=== PATIENT | female | born 1940 | race Caucasian/White ===

== ENCOUNTER 2023-05-02 06:57 | Day surgery (SDC) | payer MEDICARE, MEDICAID, SELFPAY ==
[2023-05-02] VITALS (12 sets, daily range): BP systolic 90–123; BP diastolic 62–83; PULSE 69–84; RESP 12–16; TEMP 36.2–36.8; O2SAT 91–99; BMI 21.7
[2023-05-02] MEDS: LACTATED RINGERS 1000 ML 1,000 ML 100 ML IV (07:05)
[2023-05-02] MEDS: SODIUM CHLORIDE 0.9 % (FLUSH) 10 ML SYRINGE IVF (08:39)
--- NOTE | 2023-05-02 08:39 | W.ANESCHARGE ---
Anesthesia Charges Start Date/Time Anesthesia Start Date: 05/02/23 Anesthesia Start Time: 08:41 Stop Date/Time Anesthesia Stop Date: 05/02/23 Anesthesia Stop Time: 09:20 Summary Extremes of Age - Over 70 or under 1: MDA
[2023-05-02] MEDS: BUPIVACAINE 0.25% 30 ML INJECTION (09:10)
--- NOTE | 2023-05-02 09:15 | PM.GSPRC ---
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 It was recommended that undergo wide local excision. Due to the patients co-morbidities it was recommended that she undergo excision in the operating room. Risks and benefits of operative intervention were discussed at length with the patient. Risks included but was not limited to: Bleeding, infection, risk of damage to surrounding structures, possible need for additional procedures. Patient was consented over the phone via her guardian with all questions and concerns addressed. Procedure Description: After discussing the risks and benefits of the procedure, the patient signed informed consent.? The operative site was marked and the patient was brought to the operating room and placed on the operating table in supine position.? Care was taken to pad the patient's pressure points.?? The patient was then intubated by anesthesia.?? The operative site was then prepped and draped in the usual sterile fashion.? A time-out was then performed. A vertical elliptical incision was made around the lesion with a scalpel to allow excision of 1 cm lesion with 0.5 cm margins (total width 2 cm). Subcutaneous tissues were dissected with a scalpel and the ellipse of skin was excised with a scalpel. It was marked with a marking short stitch superiorly and long stitch laterally. The lesion was then sent to pathology. Surgical field was examined for bleeding and any oozing was controlled with cautery. The incision was 3 cm and was closed in layers with 3-0 vicryl interrupted stitches for subdermal layer and with 4-0 monocryl subcuticular running stitch for skin. Dermabond was applied over the incision. ? The patient was then woken and transported to the recovery area in stable condition. ? The patient tolerated the procedure well. Findings: Squamous cell carcinoma of the right upper extremity Anesthesia: GETA Surgeon: Randa Ovalles MD Estimated blood loss (mL): 2 Additional Specimen Information: Right upper arm skin lesion Condition: stable Disposition: PACU Date of procedure: 05/02/23
--- NOTE | 2023-05-02 09:21 | W.ANESCHARGE ---
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
--- NOTE | 2023-05-02 09:23 | SUR.PHASEI ---
per track welder, ok to bring patient back to [facility] to be reunited with caregiver once patient starts waking up and v/s stable
--- NOTE | 2023-05-02 09:42 | SUR.PHASEI ---
per otolaryngology nurse, ok to d/c bp monitoring after several readings
== END 2023-05-02 10:41 | disposition home or self-care (01) ==
PROVIDERS: PCP Family Medicine; Visit Provider Surgery
PROC: (CPT 11602; principal; 2023-05-02 08:30)
DX: C44.622 Squamous cell carcinoma of skin of right upper limb, including shoulder (principal)
CPT/HCPCS: 11602; 12032; 00400; 88305; 99100; J0665; J2250; J2371; J2704; J3010; J7120

== ENCOUNTER 2023-05-03 13:09 | Emergency (ER) | payer MEDICARE, MEDICAID, SELFPAY ==
[2023-05-03 14:02] VITALS: RESP 20; TEMP 36.2
--- NOTE | 2023-05-14 11:30 | ED.GENADULT ---
HPI - General Adult General Chief complaint: Post Op Complication Stated complaint: R arm wound re-opening Time Seen by Provider: 05/03/23 15:30 History of Present Illness HPI narrative: Patient had procedure on right arm yesterday under anesthesia. Today [facility] staff reports that top of incision which was glued came open . Patient is unable to have BP or pulse oximeter on due to developmental challenges. Patient did hold my neck forcefully in triage when attempts were made so further attempts will be deferred. 82-year-old woman presenting with staff from care facility where she lives with concern of compromise to surgical site from yesterday. Reviewing records looks like this was a resection of squamous cell carcinoma. Subdermal and running intercuticular sutures were placed ultimately covered with glue. No complications noted. Required general sedation for this procedure. 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 Per staff accompanies, apparently [place] spends a lot of time moving during rest and sleep and prefers to lie on this right-side rubbing get into the bed. Was noted that the glue had come off and there was some blood. Needing evaluation for integrity of the surgical wound. Related Data Home Medications Medication Instructions Recorded Confirmed buspirone 15 mg tablet 15 mg PO BID 04/30/23 05/02/23 escitalopram oxalate 20 mg tablet 20 mg PO DAILY 04/30/23 05/02/23 (Lexapro) levothyroxine 25 mcg capsule 25 mcg PO DAILY 04/30/23 05/02/23 lorazepam 1 mg tablet (Ativan) 1 mg PO DAILY PRN 04/30/23 05/02/23 melatonin 3 mg capsule 3 mg PO DAILY 04/30/23 05/02/23 potassium chloride 10 mEq 10 meq PO BID 04/30/23 05/02/23 tablet,extended release (K-Tab) quetiapine 150 mg tablet 150 mg PO DAILY 04/30/23 05/02/23 quetiapine 300 mg tablet (Seroquel) 300 mg PO QHS 04/30/23 05/02/23 Allergies Allergy/AdvReac Type Severity Reaction Status Date / Time No Known Drug Allergies Allergy Verified 04/30/23 12:22 Review of Systems Status of ROS: Reports: unobtainable due to mental status PFSH PFSH Medical History Constipation ?K59.00 - Constipation, unspecified (ICD-10) Urinary incontinence ?R32 - Unspecified urinary incontinence (ICD-10) Unspecified hypothyroidism ?E03.9 - Hypothyroidism, unspecified (ICD-10) Unspecified intellectual disabilities ?F79 - Unspecified intellectual disabilities (ICD-10) DNR (do not resuscitate) ?Z66 - Do not resuscitate (ICD-10) 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 Reaches for examiner. Once holds hand will claw at palm. Is breathing easily. Bandage has been placed and wrapped over the right upper arm. With staff assistance and mild and mobile restraint am able to remove the dressing that has been placed. There is some dried blood in the area but wound appears to be quite well approximated without defect. Place antibiotic ointment, Telfa pad and Coban wrap. Katie appeared to tolerate this quite well. Const: Documenting provider has reviewed patient's vital signs: yes (Not able to obtain blood pressures or oxygen saturation) Course Vital Signs Vital signs: Initial Vital Signs Temperature 97.2 F L 05/03/23 14:02 Temperature Source Temporal Artery Scan 05/03/23 14:02 Respiratory Rate 20 05/03/23 14:02 Vital Signs Temperature 97.2 F L 05/03/23 14:02 Respiratory Rate 20 05/03/23 14:02 Temperature 97.2 F L 05/03/23 14:02 Respiratory Rate 20 05/03/23 14:02 Medical Decision Making MDM Narrative Medical decision making narrative: Did discuss briefly with performing surgeon. Did not anticipate any intervention and no call back was necessary. Medical Records Medical records reviewed: Yes I reviewed the patient's medical records Discharge Plan Discharge Clinical Impression: Encounter for post surgical wound check Patient Disposition: Home w/ Parent or Adult Condition: Stable Additional Instructions: Using Telfa pad as dressing, change dressing daily with antibiotic ointment as done here today for 4 days. Then I would go to dry dressing probably also with Telfa pad and the Coban as further covering/protection. Complete a total of 10 days of dressing changes. Avoid soaking during this time. Prescriptions: No Action buspirone 15 mg tablet 15 mg PO BID escitalopram oxalate [Lexapro] 20 mg tablet 20 mg PO DAILY levothyroxine 25 mcg capsule 25 mcg PO DAILY lorazepam [Ativan] 1 mg tablet 1 mg PO DAILY PRN Patient Comments: take before test or procedure melatonin 3 mg capsule 3 mg PO DAILY potassium chloride [K-Tab] 10 mEq tablet extended release 10 meq PO BID quetiapine 150 mg tablet 150 mg PO DAILY quetiapine [Seroquel] 300 mg tablet 300 mg PO QHS Follow Up/Referrals: Dat Smith MD [Primary Care Provider] - Stand Alone Forms: [facility] Info Instructions
== END 2023-05-03 16:46 | disposition home or self-care (01) ==
PROVIDERS: Emergency Provider Family Medicine; PCP Family Medicine
DX: Z48.01 Encounter for change or removal of surgical wound dressing (principal)
CPT/HCPCS: 99283

== ENCOUNTER 2023-05-29 16:26 | Emergency (ER) | payer MEDICARE, MEDICAID, SELFPAY ==
[2023-05-29 16:43] VITALS: PULSE 88; RESP 22; TEMP 36.9; BMI 19.8
--- NOTE | 2023-05-29 16:57 | CRLHL7_ITS ---
For Patients: As a result of the Century Cures Act, medical imaging exams and procedure reports are released immediately into your electronic medical record. You may view this report before your referring provider. If you have questions, please contact your health care provider. INDICATION: Constipation TECHNIQUE: Abdomen 1 view. COMPARISON: None FINDINGS: There is a moderate to large amount of retained stool throughout the colon. No dilated loops of small bowel are seen to suggest obstruction. Evaluation for free air is limited on the supine image. Partially visualized postsurgical changes of the left femur. IMPRESSION: Nonobstructed bowel-gas pattern. Dictated by María Farris MD @ 05/29/2023 6:26:32 PM Dictated by: María Farris MD @ 05/29/2023 18:26:36 (Electronically Signed)
--- NOTE | 2023-05-29 17:17 | ED.GENADULT ---
HPI - General Adult General Date Seen: 05/29/23 Chief complaint: Constipation Stated complaint: No bowel movement in 5 days Time Seen by Provider: 05/29/23 16:52 Source: other (jail caregiver) Mode of arrival: ambulatory Limitations: other (Developmental delay) History of Present Illness HPI narrative: Patient is a 82-year-old female with history of developmental delay presents to the department for constipation. She is here with 1 of the half-way caregivers was giving the history. Patient is nonverbal. They state they have nose patient has not had documented bowel movement now for 5 days. They states she usually has 1 least every other day. It and will today at 15:00 and no stool came out. She has been on MiraLax and senna. They have noticed the patient has been more agitated than normal but has not been vomiting has been eating and drinking normally. Patient is unable to give me any history due to her medical conditions. They have not noticed any other concerning abnormalities in the patient. The patient is combative and full set of vital signs 1 able to be obtained. jail staff states this is normal for her. Related Data Home Medications Medication Instructions Recorded Confirmed buspirone 15 mg tablet 15 mg PO BID 04/30/23 05/02/23 escitalopram oxalate 20 mg tablet 20 mg PO DAILY 04/30/23 05/02/23 (Lexapro) levothyroxine 25 mcg capsule 25 mcg PO DAILY 04/30/23 05/02/23 lorazepam 1 mg tablet (Ativan) 1 mg PO DAILY PRN 04/30/23 05/02/23 melatonin 3 mg capsule 3 mg PO DAILY 04/30/23 05/02/23 potassium chloride 10 mEq 10 meq PO BID 04/30/23 05/02/23 tablet,extended release (K-Tab) quetiapine 150 mg tablet 150 mg PO DAILY 04/30/23 05/02/23 quetiapine 300 mg tablet (Seroquel) 300 mg PO QHS 04/30/23 05/02/23 Allergies Allergy/AdvReac Type Severity Reaction Status Date / Time No Known Drug Allergies Allergy Verified 04/30/23 12:22 Review of Systems Status of ROS: Reports: unobtainable due to medical condition (Developmental delay) PFSH [facility] Medical History Constipation ?K59.00 - Constipation, unspecified (ICD-10) Urinary incontinence ?R32 - Unspecified urinary incontinence (ICD-10) Unspecified hypothyroidism ?E03.9 - Hypothyroidism, unspecified (ICD-10) Unspecified intellectual disabilities ?F79 - Unspecified intellectual disabilities (ICD-10) DNR (do not resuscitate) ?Z66 - Do not resuscitate (ICD-10) 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 Moist mucous membranes. Neck: Symmetric, trachea midline, No thyromegaly. CVS: RRR, No murmurs or gallops. Peripheral pulses 2+ and equal in all extremities RESP: Unlabored respiratory effort. Clear to auscultation bilaterally. GI: Nontender/Nondistended, No rebound or guarding. MSK:Extremities w/o deformity, Normal Active ROM Skin: Warm, Dry. No rashes or lesions. Neuro: Normal Muscle tone, No focal neurological deficits. Psych: Awake. Combative Const: Vital Signs, click to edit/add: Vital Signs - 24 hr 05/29/23 16:43 Temperature 98.5 F Pulse Rate [Radial ] 88 Respiratory Rate 22 Course Vital Signs Vital signs: Initial Vital Signs Temperature 98.5 F 05/29/23 16:43 Temperature Source Temporal Artery Scan 05/29/23 16:43 Pulse Rate 88 05/29/23 16:43 Respiratory Rate 22 05/29/23 16:43 Vital Signs Temperature 98.5 F 05/29/23 16:43 Pulse Rate 88 05/29/23 16:43 Respiratory Rate 22 05/29/23 16:43 Temperature 98.5 F 05/29/23 16:43 Pulse Rate 88 05/29/23 16:43 Respiratory Rate 22 05/29/23 16:43 Medical Decision Making MDM Narrative Medical decision making narrative: Patient is an 82-year-old female with developmental delay coming for constipation. Has not had documented bowel movement in 5 days. Usually goes every other day. She is mildly MRI last less than normal but is eating and drinking without issue and has had no vomiting. Patient is not having any other complaints and has not been having any fever. No clear signs of infection. Abdomen was not tender on palpation. At this time patient would not tolerate a CT due to her developmental issues and adenopathy is necessary since she is here for constipation only. We did do an abdominal x-ray and I reviewed myself and was reviewed by the radiologist showing a moderate to large amount of stool throughout the rectum but no impaction seen. Patient is already on MiraLax and senna b.i.d. She is otherwise doing well and will be discharged home. Informed and continue her stool softener regimen. Imaging Data Abdominal x-ray: Radiologist's impression: INDICATION: Constipation TECHNIQUE: Abdomen 1 view. COMPARISON: None FINDINGS: There is a moderate to large amount of retained stool throughout the colon. No dilated loops of small bowel are seen to suggest obstruction. Evaluation for free air is limited on the supine image. Partially visualized postsurgical changes of the left femur. IMPRESSION: Nonobstructed bowel-gas pattern. Dictated by María Farris MD @ 05/29/2023 6:26:32 PM Discharge Plan Discharge Clinical Impression: Constipation Qualifiers: Constipation type: unspecified constipation type Qualified Code(s): K59.00 - Constipation, unspecified Patient Disposition: Home, Self-Care Condition: Stable Instructions: Constipation (DC) Additional Instructions: Follow-up with her primary care provider. Return for new worsening symptoms. Continue her bowel regimen. Prescriptions: No Action buspirone 15 mg tablet 15 mg PO BID escitalopram oxalate [Lexapro] 20 mg tablet 20 mg PO DAILY levothyroxine 25 mcg capsule 25 mcg PO DAILY lorazepam [Ativan] 1 mg tablet 1 mg PO DAILY PRN Patient Comments: take before test or procedure melatonin 3 mg capsule 3 mg PO DAILY potassium chloride [K-Tab] 10 mEq tablet extended release 10 meq PO BID quetiapine 150 mg tablet 150 mg PO DAILY quetiapine [Seroquel] 300 mg tablet 300 mg PO QHS Follow Up/Referrals: Dat Smith MD [Primary Care Provider] - Stand Alone Forms: [facility] Info Instructions
--- NOTE | 2023-05-29 19:41 | ED.NURSE ---
Vital signs not completed due to sensory sensitivities.
== END 2023-05-29 19:35 | disposition home or self-care (01) ==
PROVIDERS: Emergency Provider Student in an Organized Health Care Education/Training Program; PCP Family Medicine
DX: K59.00 Constipation, unspecified (principal)
CPT/HCPCS: 74018; 99282; 99283

== ENCOUNTER 2023-06-12 18:10 | Emergency (ER) | payer MEDICARE, MEDICAID, SELFPAY ==
[2023-06-12 18:18] VITALS: BP 113/63; PULSE 86; RESP 18; TEMP 36; O2SAT 96
--- NOTE | 2023-06-12 18:26 | ED.GENADULT ---
HPI - General Adult General Time Seen by Provider: 18:26 Date Seen: 06/12/23 Chief complaint: Constipation Stated complaint: Bowel movements irregular Time Seen by Provider: 06/12/23 18:14 Source: patient and RN notes reviewed Mode of arrival: ambulatory Limitations: no limitations History of Present Illness HPI narrative: Katie is an 82-year-old female here with a care provider. She has significant issues with constipation. Had been on MiraLax and senna for years. [facility] which is not on her current medication sheet. She had 2 bowel movements on June 10. Today would be her 2nd day of no bowel movement in she would get prune juice, followed by a senna and then MiraLax reportedly. When the Linzess was started, the MiraLax and senna daily were stopped. She has eaten fine today per her care provider, no vomiting. No changes in amount eaten. They attempted to assess her bowel sounds and could not hear any. Patient has profound mental retardation and does attempt to scratch and clot at people. She has a history of anxiety and intermittent explosive disorder as well as osteoporosis, scoliosis, fibrocystic breasts, PKU, hypothyroidism, hypercholesterolemia. She was brought in primarily for the concerns of no bowel sounds. Related Data Home Medications Medication Instructions Recorded Confirmed buspirone 15 mg tablet 15 mg PO BID 04/30/23 05/02/23 escitalopram oxalate 20 mg tablet 20 mg PO DAILY 04/30/23 05/02/23 (Lexapro) levothyroxine 25 mcg capsule 25 mcg PO DAILY 04/30/23 05/02/23 lorazepam 1 mg tablet (Ativan) 1 mg PO DAILY PRN 04/30/23 05/02/23 melatonin 3 mg capsule 3 mg PO DAILY 04/30/23 05/02/23 potassium chloride 10 mEq 10 meq PO BID 04/30/23 05/02/23 tablet,extended release (K-Tab) quetiapine 150 mg tablet 150 mg PO DAILY 04/30/23 05/02/23 quetiapine 300 mg tablet (Seroquel) 300 mg PO QHS 04/30/23 05/02/23 Allergies Allergy/AdvReac Type Severity Reaction Status Date / Time No Known Drug Allergies Allergy Verified 04/30/23 12:22 Review of Systems Status of ROS: Reports: unobtainable due to medical condition PFSH PFSH Medical History Constipation ?K59.00 - Constipation, unspecified (ICD-10) Urinary incontinence ?R32 - Unspecified urinary incontinence (ICD-10) Unspecified hypothyroidism ?E03.9 - Hypothyroidism, unspecified (ICD-10) Unspecified intellectual disabilities ?F79 - Unspecified intellectual disabilities (ICD-10) DNR (do not resuscitate) ?Z66 - Do not resuscitate (ICD-10) 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 She reaches attempts to scratch in grab at me immediately. She had to be restrained by the care provider as I attempted to listen to her. She is vocalizing sounds. She is rather strong. Belly is soft, I feel no masses. When I listen, I do hear underlying bowel sounds but understand why they may have had difficulty. She moves when you attempt to examine her and does tense her belly up. Listening long enough I do hear the peristalsis that sounds normal. I can hear in both upper quadrants. She sitting in the chair and thus really is not laid out flat. Discussed with her care provider whether not she felt it is plain films could be done. She stated that the patient would not cooperate or hold still for this. Thus, had discussion about a patient here that is not had a bowel movement in 2 days that I do hear bowel sounds on, is still eating and drinking without any change in no evidence of vomiting. I would recommend proceeding with the usual bowel regimen. Watch for signs and symptoms of obstruction with diminished appetite, increasing belly distension, vomiting any changes in behavior that would have historically may be indicated pain. I feel proceeding further with such things like rectal examination, attempts at abdominal imaging are not going to be successful or fruitful with out use of sedation. There is nothing here clinically that necessitates this level of intervention, do believe that the risk of sedation outweighs potential benefits at this time. Rectal examination will prove to be most difficult without sedation as well. Documenting provider has reviewed patient's vital signs: yes Course Vital Signs Vital signs: Initial Vital Signs Temperature 96.8 F L 06/12/23 18:18 Temperature Source Temporal Artery Scan 06/12/23 18:18 Pulse Rate 86 06/12/23 18:18 Respiratory Rate 18 06/12/23 18:18 Blood Pressure 113/63 06/12/23 18:18 Blood Pressure Mean 79 06/12/23 18:18 Blood Pressure Position Sitting 06/12/23 18:18 Pulse Oximetry 96 06/12/23 18:18 Oxygen Delivery Method Room Air 06/12/23 18:18 Vital Signs Temperature 96.8 F L 06/12/23 18:18 Pulse Rate 86 06/12/23 18:18 Respiratory Rate 18 06/12/23 18:18 Blood Pressure 113/63 06/12/23 18:18 Pulse Oximetry 96 06/12/23 18:18 Oxygen Delivery Method Room Air 06/12/23 18:18 Temperature 96.8 F L 06/12/23 18:18 Pulse Rate 86 06/12/23 18:18 Respiratory Rate 18 06/12/23 18:18 Blood Pressure 113/63 06/12/23 18:18 Pulse Oximetry 96 06/12/23 18:18 Oxygen Delivery Method Room Air 06/12/23 18:18 Discharge Plan Discharge Clinical Impression: Chronic constipation Patient Disposition: Home w/ Parent or Adult Condition: Stable Instructions: Constipation (ED) Additional Instructions: Proceed with her outlined regimen for constipation. I certainly would consider using prune juice as well as senna at this point. Could add in MiraLax tomorrow. You can always try to contact her primary provider tomorrow for further recommendations. Should she have concerns such is not eating, develops vomiting, has increasing abdominal distension or seems like she might be having abdominal pain in setting of no stool output, do recommend further evaluation. Activity Level: Activity as Tolerated Prescriptions: No Action buspirone 15 mg tablet 15 mg PO BID escitalopram oxalate [Lexapro] 20 mg tablet 20 mg PO DAILY levothyroxine 25 mcg capsule 25 mcg PO DAILY lorazepam [Ativan] 1 mg tablet 1 mg PO DAILY PRN Patient Comments: take before test or procedure melatonin 3 mg capsule 3 mg PO DAILY potassium chloride [K-Tab] 10 mEq tablet extended release 10 meq PO BID quetiapine 150 mg tablet 150 mg PO DAILY quetiapine [Seroquel] 300 mg tablet 300 mg PO QHS Follow Up/Referrals: Dat Smith MD [Primary Care Provider] - Stand Alone Forms: [facility] Info Instructions
--- NOTE | 2023-06-12 19:26 | ED.NURSE ---
Patient discharge by doctor prior to being able to fully assess patient.
== END 2023-06-12 19:10 | disposition home or self-care (01) ==
LOC: ED 18:59
PROVIDERS: Emergency Provider Family Medicine; PCP Family Medicine
DX: K59.09 Other constipation (principal)
CPT/HCPCS: 99282; 99283

== ENCOUNTER 2024-05-07 12:08 | Emergency (ER) | payer MEDICARE, MEDICAID, SELFPAY ==
[2024-05-07 12:35] VITALS: RESP 18; TEMP 36.4
--- NOTE | 2024-05-07 12:43 | CRLHL7_ITS ---
For Patients: As a result of the Century Cures Act, medical imaging exams and procedure reports are released immediately into your electronic medical record. You may view this report before your referring provider. If you have questions, please contact your health care provider. Indication: Fall, will not stand Technique: Five views AP pelvis and two views each hip Comparison: None Findings/Impression: Bones: Deformity of the left superior pubic ramus and left femoral neck consistent with old fractures with 3 pin fixation of the left hip. Pins are seated within the femoral head. No definite evidence of acute fracture. Mild underlying osteopenia. Joint spaces: No dislocation. Soft tissues: Phleboliths within the pelvis. Dictated by Elvis Baltazar MD @ 05/07/2024 2:52:42 PM (Electronically Signed)
--- NOTE | 2024-05-07 12:58 | ED.GENADULT ---
HPI - General Adult General Date Seen: 05/07/24 Chief complaint: Extremity Pain/Injury, Lower Stated complaint: Fall, poss RT hip injury Time Seen by Provider: 05/07/24 12:43 Source: other (Care staff) Mode of arrival: wheelchair Limitations: other (Mental retardation) History of Present Illness HPI narrative: Patient is an 83-year-old female presenting to the emergency department for a fall. She lives in a shelter for her severe developmental delay and is non verbal. She was with staff when she stood up and fell. They are unsure if she fell to her left or right side but they found her on the floor and quickly tried to help her up. She is refusing to stand up so they were concerned she hurt her hip. They do not think she hit her head. No obvious injuries seen by staff. She has not been screaming out in pain when she would sit we do if she hurts. She is nonverbal for them cannot tell staff what happened. Related Data Home Medications ?Medication ?Instructions ?Recorded ?Confirmed buspirone 15 mg tablet 15 mg PO BID 04/30/23 05/02/23 escitalopram oxalate 20 mg tablet 20 mg PO DAILY 04/30/23 05/02/23 (Lexapro) levothyroxine 25 mcg capsule 25 mcg PO DAILY 04/30/23 05/02/23 lorazepam 1 mg tablet (Ativan) 1 mg PO DAILY PRN 04/30/23 05/02/23 melatonin 3 mg capsule 3 mg PO DAILY 04/30/23 05/02/23 potassium chloride 10 mEq 10 meq PO BID 04/30/23 05/02/23 tablet,extended release (K-Tab) quetiapine 150 mg tablet 150 mg PO DAILY 04/30/23 05/02/23 quetiapine 300 mg tablet (Seroquel) 300 mg PO QHS 04/30/23 05/02/23 Previous Rx's ?Medication ?Instructions ?Recorded oxycodone 5 mg tablet See Rx Instructions .Route 05/07/24 .COMPLEX PRN pain #12 tabs Allergies Allergy/AdvReac Type Severity Reaction Status Date / Time No Known Drug Allergies Allergy Verified 05/07/24 12:34 Review of Systems Status of ROS: Reports: unobtainable due to medical condition [facility] Medical History Constipation ?K59.00 - Constipation, unspecified (ICD-10) Urinary incontinence ?R32 - Unspecified urinary incontinence (ICD-10) Unspecified hypothyroidism ?E03.9 - Hypothyroidism, unspecified (ICD-10) Unspecified intellectual disabilities ?F79 - Unspecified intellectual disabilities (ICD-10) DNR (do not resuscitate) ?Z66 - Do not resuscitate (ICD-10) 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 She would not sit still Eyes: PERRL, no conjunctival injection, and symmetrical lids HENT: Atraumatic external nose and ears. Moist mucous membranes. Neck: Symmetric, trachea midline, No thyromegaly. CVS: RRR, No murmurs or gallops. Peripheral pulses 2+ and equal in all extremities RESP: Unlabored respiratory effort. Clear to auscultation bilaterally. GI: Nontender/Nondistended, No rebound or guarding. MSK:Extremities w/o deformity, Normal Active ROM Skin: Warm, Dry. No rashes or lesions. Neuro: Normal Muscle tone, No focal neurological deficits. Is moving all extremities without issue and moving neck without issue. Psych: Awake. Const: Vital Signs, click to edit/add: Vital Signs - 24 hr 05/07/24 12:35 Temperature 97.6 F Respiratory Rate 18 Course Vital Signs Vital signs: Initial Vital Signs Temperature 97.6 F 05/07/24 12:35 Temperature Source Temporal Artery Scan 05/07/24 12:35 Respiratory Rate 18 05/07/24 12:35 Vital Signs Temperature 97.6 F 05/07/24 12:35 Respiratory Rate 18 05/07/24 12:35 Temperature 97.6 F 05/07/24 12:35 Respiratory Rate 18 05/07/24 12:35 Medical Decision Making MDM Narrative Medical decision making narrative: Patient is an 83-year-old female initially seen in the triage area due to the busy department presenting for a fall. Is concerned for hip injury so a bilateral hip and pelvis was ordered. She has no tenderness nurse anywhere in her lower extremities for hip on palpation. Of note she is quite developmentally delayed and an adequate exam is hard to perform. While I cannot definitely states he had her head or not she is moving her neck without issues and they have not noticed any changes to her mentation. I do believe will be near impossible to get an adequate CT without sedation and likely intubation and believe that is unnecessary for this patient. X-ray was eventually done with the help of multiple staff to hold her down and shows no acute abnormalities. I went to go evaluate her when she was brought back to a room and now it noticed her left knee is swollen up quite a bit compared to earlier. Do this I will order an x-ray of that knee. This shows a patellar fracture with hemarthrosis. I spoke to the on-call Ortho provider Dr. Young who states she would be a poor candidate for surgical considering her age, the minimal displacement, and her likely poor adherence to surgery follow-up restrictions. Does think on knee immobilizer is best option for her at this time. Will place a knee immobilizer on the patient. She will be discharged to the care of her caregivers. An [place] wrap was placed around the knee immobilizer to help prevent the patient from taking it off. Will also discharge her with some oxycodone in case she develops pain later on. She does have a follow-up appointment scheduled with Orthopedics on Saturday. Imaging Data X-ray hips and pelvis: Attestation: I have reviewed the pertinent imaging results. Radiologist's impression: Bones: Deformity of the left superior pubic ramus and left femoral neck consistent with old fractures with 3 pin fixation of the left hip. Pins are seated within the femoral head. No definite evidence of acute fracture. Mild underlying osteopenia. Joint spaces: No dislocation. Soft tissues: Phleboliths within the pelvis. Dictated by Elvis Baltazar MD @ 05/07/2024 2:52:42 PM X-ray left knee: Attestation: I have reviewed the pertinent imaging results. Radiologist's impression: Patellar fracture and associated hemarthrosis as above. Dictated by Basim Shannon MD @ 05/07/2024 3:51:59 PM Discharge Plan Discharge Clinical Impression: Patellar fracture Qualifiers: Encounter type: initial encounter Fracture type: closed Fracture morphology: unspecified fracture morphology Fracture alignment: nondisplaced Laterality: left Qualified Code(s): S82.002A - Unspecified fracture of left patella, initial encounter for closed fracture Patient Disposition: Home w/ Parent or Adult Condition: Stable Instructions: Patellar Fracture (ED) Additional Instructions: She needs to keep the knee immobilizer on at all times other than when she is getting cleaned up. She is not allowed to walk without the knee immobilizer. She can do full weight-bearing to the left leg son with the knee immobilizer is on. Staff assist of 1-2 can be used. She is allowed to sit in her wheelchair with the safety belt on. Oxycodone prescribed for pain but she can take 2.5-5 mg every 4 hours as needed for pain. Could also continue take Tylenol and ibuprofen but I do believe ibuprofen may be more helpful. Follow up appointment scheduled for May 12 at 10:00 AM at the [facility]. Orthopedics Fracture clinic [address] [place] [address] Prescriptions: New oxycodone 5 mg tablet See Rx Instructions .ROUTE .COMPLEX PRN (Reason: pain) Qty: 12 0RF Rx Instructions: Can take 2.5 mg to 5 mg as needed for pain every 4 hours No Action buspirone 15 mg tablet 15 mg PO BID escitalopram oxalate [Lexapro] 20 mg tablet 20 mg PO DAILY levothyroxine 25 mcg capsule 25 mcg PO DAILY lorazepam [Ativan] 1 mg tablet 1 mg PO DAILY PRN Patient Comments: take before test or procedure melatonin 3 mg capsule 3 mg PO DAILY potassium chloride [K-Tab] 10 mEq tablet extended release 10 meq PO BID quetiapine 150 mg tablet 150 mg PO DAILY quetiapine [Seroquel] 300 mg tablet 300 mg PO QHS Follow Up/Referrals: Dat Smith MD [Primary Care Provider] - Stand Alone Forms: imbookin ([place]) Info Instructions
--- NOTE | 2024-05-07 15:17 | CRLHL7_ITS ---
For Patients: As a result of the Cures Act, medical imaging exams and procedure reports are released immediately into your electronic medical record. You may view this report before your referring provider. If you have questions, please contact your health care provider. INDICATION: Pain and swelling. COMPARISON: None available. TECHNIQUE: Two views left knee FINDINGS: Complete nondisplaced fracture through the lower half of the patella associated with a large joint effusion consistent with a hemarthrosis. Lateral tibiofemoral osteoarthrosis, moderate. IMPRESSION: Patellar fracture and associated hemarthrosis as above. Dictated by Basim Shannon MD @ 05/07/2024 3:51:59 PM (Electronically Signed)
--- OUTSIDE RECORDS SUMMARY | 2024-05-07 15:27 | XMS_ITS | Clinical Summary ---
Author Organization [facility] Address [place], [place] [address] Care Team Providers Care Advanced Practice Registered Nurse Name Role Phone Dat Smith MD Primary Care Provider Thomas Mills MD Unavailable Basim Carias Unavailable [phone] Allergies No known active allergies Medications Medication Sig Dispensed Refills Start Date End Date Status BUSPAR 15 MG TAB take 1 tablet (15mg) by oral route 2 times per day 0 Active QUEtiapine (SEROQUEL) 50 mg tablet One oral at bedtime for total of 250mg at bedtime. 0 2 Active Wheel ChairIndications:Ga it instability Wheelchair: Standard. Length of need: 99 months 1 Device 7 Active miscellaneous medical supply miscIndications:Uns table gait Seat belt for wheelchair 1 Units 9 Active escitalopram oxalate (LEXAPRO) 20 mg tablet Take 20 mg by mouth once daily. 2 Active QUEtiapine (SEROQUEL) 100 mg tablet TAKE ONE TABLET BY MOUTH EVERY MORNING ALONG WITH (50MG) FOR TOTAL OF (150MG) 2 Active QUEtiapine (SEROQUEL) 300 mg tablet TAKE ONE TABLET BY MOUTH AT BEDTIME ALONG WITH (50MG) FOR TOTAL OF 350MG 2 Active levothyroxine (SYNTHROID) 25 mcg tabletIndications:A cquired hypothyroidism Take 1 Tablet (25 mcg) by mouth once daily. 90 Tablet 3 3 Active potassium chloride (KLOR-CON) 10 mEq extended-release tablet (part/cryst)Indicat ions:Hypokalemia TAKE 2 TABLETS (20MEQ) BY MOUTH ONCE DAILY WITH A MEAL. 180 Tablet 3 3 Active linaCLOtide (LINZESS) 145 mcg cap capsuleIndications: Chronic constipation Take 1 Capsule (145 mcg) by mouth before breakfast. 30 Capsule 12 3 Active bisacodyL (DULCOLAX) 10 mg suppositoryIndicati ons:Constipation, unspecified constipation type Insert 1 Suppository (10 mg) rectally once daily if needed (constipation). 5 Suppository 3 3 Active Milk of Magnesia 400 mg/5 mL suspensionIndicatio ns:Constipation, unspecified constipation type On without BM give 30 mL of Milk of Magnesia (MOM) oral in the morning. 473 mL 3 3 Active Diaper,Brief, Adult,Disposable (Tranquility Premium Underwear)Indicatio ns:Frequent urinary incontinence FOR HOME USE 6-8 PER DAY 720 Each 3 3 Active calcium carbonate-vitamin D3, 600 mg-400 unit, 600 mg-10 mcg (400 unit) tabletIndications:N utritional deficiency TAKE ONE CAPLET BY MOUTH ONCE DAILY 90 Tablet 2 3 Active polyethylene glycoL (MIRALAX) 17 gram/scoop powderIndications:C onstipation, unspecified constipation type Mix 1 scoop (17 g) in liquid then take by mouth two times daily. 1700 g 3 4 Active polyethylene glycoL (MIRALAX) 17 gram/scoop powderIndications:C onstipation, unspecified constipation type Mix 1 scoop (17 g) in liquid then take by mouth two times daily. 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 0 Overview: 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 Frequent urinary incontinence 03/29/2022 Encounters Date Type Department Care Team Description 04/28/2024 Telephone [facility] [address] [place] [address] Dat Smith MD Follow Up (confusion on encounter from 04/28) 04/28/2024 Telephone [facility] [address] [place] [address] Dat Smith MD Reinstate safety belt (Safety belt) 04/16/2024 1:23 PM CDT - 04/16/2024 11:59 PM CDT Hospital Encounter [address] [address] Dat Smith MD Burns, Kayla A, OT Frequent falls 04/16/2024 Travel 04/06/2024 Refill [facility] [address] [place] [address] Dat Smith MD Refill Request (Gavilax) 03/29/2024 Telephone [facility] [address] [place] [address] Dat Smith MD Results 03/27/2024 9:15 AM CDT Orders Only [facility] [address] [place] [address] Lab, [facility] 03/27/2024 Telephone [facility] [address] [place] [address] Dat Smith MD Results 03/26/2024 1:15 PM CDT Office Visit [facility] [address] [place] [address] Dat Smith MD UTI (Dark colored urine and strong odor/); Rash (On left shoulder and allover ) 03/26/2024 Travel 03/24/2024 Telephone [facility] [address] [place] [address] Dat Smith MD Referral (Occupational therapy) from Last 3 Months Immunizations Name Administration Dates Next Due AMB Influenza, IIV3 (Age >=3 years)(Flu Clinic Only) 06/16/2013,07/14/2012,07/25/2011,2009,08/20/2008 Amb Influenza, Inact (High-d ose) (Flu Clinic Only) 07/08/2014 COVID-19 vaccine (Moderna 100mcg/0.5mL) PF, MDV 11/04/2020,10/07/2020 COVID-19 vaccine (Pfizer-Bio NTech 30mcg/0.3mL) 12YO+ BIVALENT PF, MDV 09/03/2022 COVID-19 vaccine (Pfizer-Bio NTech 30mcg/0.3mL) 12YO+ KALEE-SUCROSE PF, MDV 03/29/2022 COVID-19 vaccine (Pfizer-Bio NTech 30mcg/0.3mL) PF, MDV 08/31/2021 Influenza, High-dose Inactivated 019,06/30/2018,07/17/2017,2014,07/08/2014 Influenza, High-dose Quadriv alent Inactivated 08/01/2021,05/31/2020 Influenza, IIV3 (Age 6-35 mos) 07/25/2011,2008 Influenza, IIV3 (Age >=3 years) 07/06/20 16,06/16/2013,07/14/2012,2009,08/19/2009,08/20/2008,08/19/2007,1 09/09/2004,06/28/2005,06/14/2004 Influenza, Inactivated AIIV4 (Age 65+ Years) Preserv Free 05/22/2023,09/03/2022 Pneumococcal Conj 20-valent (Prevnar 20) 05/22/2023 Pneumococcal Poly,23-Valent (Pneumovax) 02/02/2009 Pneumococcal conj 13-Valent (Prevnar 13) 03/23/2015 Td (Age >=7 Years) 01/11/2003 Tdap 02/08/2012 Zoster (Zostavax-ZVL, live) 09/09/2014, 3 Family History Medical History Relation Name Comments Diabetes Maternal Grandfather late in life Cancer-breast Mother Cancer-colon Neg. 1 Cancer-ovarian Neg. 2 Relation Name Status Comments Maternal Grandfather Mother Neg. 1 Neg. 2 Social History Tobacco Use Types Packs/Day Years Used Date Smoking Tobacco: Never Smokeless Tobacco: Never Tobacco Cessation:Counseling Given: Yes Alcohol Use Standard Drinks/Week Comments No 0 (1 standard drink = 0.6 oz pur e alcohol) Social Connections Answer Date Recorded Frequency of Communication with Friends and Fami ly Not on file 08/31/2021 Financial Resource Strain Answer Date R ecorded Difficulty of Paying Living Expenses Not on file 08/31/2021 Difficulty of Paying Living Expenses Not on file 08/31/2021 Sex and Gender Information Value Date Recorded Sex Assigned at Not on file Gender Identity Not on file Sexual Orientation Not on file Obstetrics History Last Filed Vital Signs Vital Sign Reading Time Taken Comments Blood Pressure 108/78 02/08/2012 1:38 PM CDT Pulse 95 04/04/2018 11:26 AM CDT Temperature 36.6 ??C (97.8 ??F) 09/04/2017 1:21 PM CS T Respiratory Rate 18 03/17/2013 2:08 PM CDT Oxygen Saturation 91% 04/04/2018 11:26 AM CDT Inhaled Oxygen Concentration - - Weight 46.7 kg (103 lb) 04/25/2023 1:42 PM CDT h ome weight Height 147.3 cm (4' 10) 04/25/2023 1:42 PM CDT home report Body Mass Index 21.53 04/25/2023 1:42 PM CDT Plan of Treatment Health Maintenance Due Date Last Done Comments DEXA/DXA scan for age 65+ 2007 Zoster (shingles) series for age 50+ (2 of 3) 11/04/2014 09/09/2014, 07/17/2013 Tetanus booster 02/07/2022 02/08/2012, 01/11/2003 COVID-19 vaccine series ( season) 2023 07/01/2023, 09/03/2022, 03/29/2022, Additional history exists BMI (ht and wt on same day) for age 18+ 04/25/2024 04/25/2023, 08/23/2016, 10/26/2015 Influenza for age 65+ 05/10/2024 05/22/2023 , 09/03/2022, 08/01/2021, Additional history exists Medicare Wellness for age 65+ 05/22/2024, 03/29/2022, 03/28/2021, Additional history exists Tdap Completed 02/08/2012 Pneumococcal series for age 65+ Completed 05/22/2023, 03/23/2015, 02/02/2009 Procedures Procedure Name Priority Date/Time Associated Diagnosis Comments URINALYSIS MICROSCOPIC Routine 03/27/2024 9:15 AM CDT Malodorous urine URINE CULTURE Routine 03/27/2024 9:15 AM CDT Malodorous urine UA W/ SEDIMENT EXAM REFLEXED PER CRITERIA Routine 03/27/2024 9:15 AM CDT Malodorous urine from Last 3 Months Results * (ABNORMAL) URINALYSIS MICROSCOPIC (03/27/2024 9:15 AM CDT) RBC 0-2 0-2, None Seen /HPF 03/27/2024 10:00 AM CDT [facility] WBC >100(A) 0-2, 3-5, None Seen /HPF 03/27/2024 10:00 AM CDT [facility] BACTERIA Many(A) None Seen, Rare, Few Bacteria/H PF 03/27/2024 10:00 AM CDT [facility] EPITHELIAL CELLS Few None Seen, Few Epi/HPF 03/27/2024 10:00 AM T [facility] Urine URINE SPECIMEN / Unknown Non-Blood / Unknown 03/27/2024 9:15 AM CDT 03/27/2024 9:47 AM CDT Dat Smith MD URINE [facility] [address] [place] [address], * (ABNORMAL) URINE CULTURE (03/27/2024 9:15 AM CDT) CULTURE RESULT(A) 03/29/2024 6:56 AM CDT [facility] CULTURE >100,000 CFU/mL Escherichia coli 03/29/2024 6:56 AM CDT [facility] Urine URINE SPECIMEN / Unknown Non-Blood / Unknown 03/27/2024 9:15 AM CDT 03/27/2024 9:47 AM CDT Narrative Organism Antibiotic Method Susceptibility Escherichia coli TRIMETHOPRIM/SULF <=09/27: S Escherichia coli AMPICILLIN <=2: S Escherichia coli CEFAZOLIN 2: S Escherichia coli CEFAZOLIN-UC 2: S Comment:Cefazolin-UC interpretations are for therapy of uncomplicated UTIs due to E.coli, K.pneumoniae, or P.mirablis. Cefazolin breakpoint is used as a surrogate to predict results for the oral agents - cefdinir, cefuroxime, and cephalexin, when used for therapy of uncomplicated UTIs due to E coli, K, pneumoniae, and P. mirabilis. The FDA recommends cefadroxil susceptibility can be deduced from cefazolin. Escherichia coli GENTAMICIN <=1: S Escherichia coli CEFTRIAXONE <=0.25: S Escherichia coli CEFTAZIDIME <=0.5: S Escherichia coli LEVOFLOXACIN <=0.12: S Escherichia coli CIPROFLOXACIN <=0.06: S Escherichia coli PIPERACILLIN/TAZO <=4: S Escherichia coli AMPICILLIN/SULBACTAM <=2: S Escherichia coli CEFEPIME <=0.12: S Escherichia coli MEROPENEM <=0.25: S Escherichia coli NITROFURANTOIN <=16: S Dat Smith MD MICROBIOLOGY [facility] [address] [place] [address], [place] * (ABNORMAL) UA W/ SEDIMENT EXAM REFLEXED PER CRITERIA (03/27/2024 9:15 AM CDT) COLOR Yellow Yellow Color 03/27/2024 9:59 AM CDT [facility] CLARITY Slightly Cloudy(A) Clear Clarity 03/27/2024 9:59 AM CDT [facility] SPECIFIC GRAVITY,URINE 1.015 1.010, 1.015, 1.020, 1.025 03/27/2024 9:59 AM CDT [facility] PH,URINE 6.5 6.0, 7.0, 8.0, 5.5, 6.5, 7.5, 8.5 03/27/2024 9:59 AM CDT [facility] UROBILINOGEN, QUALITATIVE Normal Normal EU/dl 03/27/2024 9:59 AM CDT [facility] PROTEIN, URINE Negative Negative mg/dL 03/27/2024 9:59 AM CDT [facility] GLUCOSE, URINE Negative Negative mg/dL 03/27/2024 9:59 AM CDT [facility] KETONES,URINE Negative Negative mg/dL 03/27/2024 9:59 AM CDT [facility] BILIRUBIN,URI NE Negative Negative 03/27/2024 9:59 AM CDT [facility] OCCULT BLOOD,URINE Trace(A) Negative 03/27/2024 9:59 AM CDT [facility] NITRITE Positive(A) Negative 03/27/2024 9:59 AM CDT [facility] LEUKOCYTE ESTERASE Large(A) Negative 03/27/2024 9:59 AM CDT [facility] Urine URINE SPECIMEN / Unknown Non-Blood / Unknown 03/27/2024 9:15 AM CDT 03/27/2024 9:47 AM CDT Dat Smith MD URINE [facility] [address] [place] [address], [place] [phone] from Last 3 Months Advance Directives Documents on File Type Date Recorded Patient [employer] Expl anation Treatment Guidelines 11/29/2022 Treatment Guidelines 12/06/2021 Treatment Guidelines 11/19/2020 Healthcare Directive 12/08/2018 10:31 AM DN R/DNI, [place] [facility], 11/19/18 Treatment Guidelines 11/28/2018 11:25 AM D NR/DNI, [place] [facility], 11/21/18 Healthcare Directive 11/22/2017 10:20 AM D NR-[place]NI, [place] [facility], 11/19/17 Healthcare Directive 12/03/2016 2:53 PM DN R/DNI [place] [facility], 11/19/16 Healthcare Directive 11/30/2016 3:46 PM RE [facility]USCITATION [facility], 11/23/2016 Healthcare Directive 12/15/2015 3:30 PM [facility] DNR/DNI ORDER, [place] [facility], [facility], 11/20/2015 Healthcare Directive 12/15/2015 3:29 PM DNR /DNI, [facility], 11/17/2015 Healthcare Directive 12/09/2014 3:18 PM [facility] RESUSCITATION [facility]UID[facility]ES, 11/24/14 Treatment Guidelines 11/19/2014 4:00 PM DN R-DNI, [place] [facility], 11/19/14 Care Teams Advanced Practice Registered Nurse Relationship Specialty Start Date End Date Dat Smith MD [address] [place] [address] PCP - General 01/24/06 Thomas Mills MD [address] , [address] [place] [address] Psychology 02/06/11 Basim Carias [address] [place] [id number] [employer] 02/08/12
== END 2024-05-07 16:43 | disposition home or self-care (01) ==
PROVIDERS: Emergency Provider Student in an Organized Health Care Education/Training Program; PCP Family Medicine
DX: S82.002A Unspecified fracture of left patella, initial encounter for closed fracture (principal); W19.XXXA Unspecified fall, initial encounter
CPT/HCPCS: 73521; 73560; 99283

== ENCOUNTER 2024-05-10 11:53 | Emergency (ER) | payer MEDICARE, MEDICAID, SELFPAY ==
[2024-05-10 11:57] VITALS: TEMP 36.2
--- NOTE | 2024-05-10 12:12 | ED.GENADULT ---
HPI - General Adult General Date Seen: 05/10/24 Chief complaint: Extremity Pain/Injury, Lower Stated complaint: Swollen lt foot following knee injury Time Seen by Provider: 05/10/24 12:05 History of Present Illness HPI narrative: History is limited by the patient's baseline mental status. She is nonverbal. She is not really able to cooperate with physical exam. When I approach her for exam she tries to grab me and pinch me. This is an 83-year-old female with a history of developmental delay, with aggressive behaviors (?she has a Grabber? according to her retirement staff) who is a resident of a retirement. She injured her left knee (patella fracture) and was seen here in the ER on for that injury. She had x-rays of her pelvis, hips, femur, and left knee. She was diagnosed with a patellar fracture. She was sent home with a knee immobilizer. jail is left the knee brace and overlying [place] wrap in place continuously since last . Her retirement staff was told to monitor for swelling of her leg and they have noted new foot swelling. This morning they noticed swelling in her left foot. She otherwise seems to be at her baseline. No fever. No apparent discomfort. A per the patient's discharge instructions they brought her back to the ER. Other than the swelling in her foot, staff have not noticed any other problems. Related Data Home Medications ?Medication ?Instructions ?Recorded ?Confirmed buspirone 15 mg tablet 15 mg PO BID 04/30/23 05/02/23 escitalopram oxalate 20 mg tablet 20 mg PO DAILY 04/30/23 05/02/23 (Lexapro) levothyroxine 25 mcg capsule 25 mcg PO DAILY 04/30/23 05/02/23 lorazepam 1 mg tablet (Ativan) 1 mg PO DAILY PRN 04/30/23 05/02/23 melatonin 3 mg capsule 3 mg PO DAILY 04/30/23 05/02/23 potassium chloride 10 mEq 10 meq PO BID 04/30/23 05/02/23 tablet,extended release (K-Tab) quetiapine 150 mg tablet 150 mg PO DAILY 04/30/23 05/02/23 quetiapine 300 mg tablet (Seroquel) 300 mg PO QHS 04/30/23 05/02/23 Previous Rx's ?Medication ?Instructions ?Recorded oxycodone 5 mg tablet See Rx Instructions .Route 05/07/24 .COMPLEX PRN pain #12 tabs Allergies Allergy/AdvReac Type Severity Reaction Status Date / Time No Known Drug Allergies Allergy Verified 05/07/24 12:34 [facility] Medical History Constipation ?K59.00 - Constipation, unspecified (ICD-10) Urinary incontinence ?R32 - Unspecified urinary incontinence (ICD-10) Unspecified hypothyroidism ?E03.9 - Hypothyroidism, unspecified (ICD-10) Unspecified intellectual disabilities ?F79 - Unspecified intellectual disabilities (ICD-10) DNR (do not resuscitate) ?Z66 - Do not resuscitate (ICD-10) 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 Sitting up in her wheelchair. She is alert. She is moving all 4 extremities purposefully. She does not appear uncomfortable or distressed. However when I approach her for exam she becomes agitated tries to grab me and pinch me. Her retirement staff indicates that this is her normal baseline behavior. HENT: Head: Atraumatic. Nose: Nose normal. Mouth/Throat: Oral mucosa is clear and moist. no trismus. She seems to be at times smacking her lips and chewing with her mouth but this is her baseline behavior, not a seizure activity. Eyes: Conjunctivae normal. EOM normal. Pupils equal, round, and reactive to light. No scleral icterus. Neck: Normal range of motion. Neck supple. No tracheal deviation present. Cardiovascular: Normal rate, regular rhythm. No gallop. No friction rub. No murmur heard. Symmetric DP artery pulses Pulmonary/Chest: Effort normal. No stridor. No respiratory distress. Abdominal: Uncooperative and difficult to interpret but no apparent tenderness. Musculoskeletal: RUE: Normal range of motion. No tenderness. No deformity LUE: Normal range of motion. No tenderness. No deformity RLE: Normal range of motion. No edema. No tenderness. No deformity LLE: She is sitting up in her wheelchair without any discomfort. She has a knee immobilizer covered by an [place] wrap. The proximal end of the knee immobilizer does look to be fairly tight on her distal thigh. I am able to get 2 fingers in errands: I, but I can see that the soft tissue is slightly compressed. She has edema affecting her ankle and foot. She has normal cap refill in the toes. I am able to palpate DP pulse. No apparent tenderness of the foot or ankle. Lymph: No swelling or erythema proximal to the knee brace. Neurological: She is alert. She is at her neurologic baseline according to her retirement staff. She moves all 4 extremities. She grabs and struggles against physical exam which is her baseline. Skin: Skin is warm and dry. No rash noted. No pallor. Normal capillary refill. Psychiatric: Limited Const: Vital Signs, click to edit/add: Vital Signs - 24 hr 05/10/24 11:57 05/10/24 14:35 Temperature 97.2 F L Pulse Rate [Pulse Oximeter] 102 H Respiratory Rate 24 Pulse Oximetry 96 Oxygen Delivery Me thod Room Air Course Course ED Course: Patient evaluated in ER room 5. Because of her baseline aggressive behavior, she was very difficult to assess what she was in the ER on the day of her injury. She would not be able to tolerate ultrasound (with try to kick the tech and or grab and pinch them). Therefore we will half to try to sedate and calm the patient. Discussed options with her CT staff. We decided to go ahead with oral Ativan. Recheck -120. Now quite a bit calmer. Breathing easily. No signs of respiratory compromise. After loosening her knee immobilizer, seems to have slightly improved swelling in her foot already. Recheck-was able to do ultrasound by wrapping a blanket around her torso, blocking her field of view with a Seper blanket, reassuring her, and gently holding her arms to prevent her from pinching or tried to hit medical staff. Recheck-preliminary report from support service tech is that DVT ultrasound is negative. Vital Signs Vital signs: Initial Vital Signs Temperature 97.2 F L 05/10/24 11:57 Temperature Source Temporal Artery Scan 05/10/24 11:57 Vital Signs Temperature 97.2 F L 05/10/24 11:57 Temperature 97.2 F L 05/10/24 11:57 Pulse Rate 102 H 05/10/24 14:35 Respiratory Rate 24 05/10/24 14:35 Pulse Oximetry 96 05/10/24 14:35 Oxygen Delivery Method Room Air 05/10/24 14:35 Medications Administered Medications: Discontinued Medications Generic Name Dose Route Start Last Admin Trade Name Freq PRN Reason Stop Dose Admin Gabapentin 300 mg 05/10/24 12:07 05/10/24 12:38 Gabapentin 300 Mg Capsule PO 05/10/24 12:08 Not Given ONCE ONE Hydromorphone HCl 1 mg 05/10/24 12:06 05/10/24 12:38 Hydromorphone 0.5 Mg/0.5 Ml Inj IVP 05/10/24 12:07 Not Given ONCE ONE Ketorolac Tromethamine 15 mg 05/10/24 12:06 05/10/24 12:38 Ketorolac 15 Mg/Ml Inj IVP 05/10/24 12:07 Not Given ONCE ONE Lorazepam 1 mg 05/10/24 12:26 05/10/24 12:37 Lorazepam 1 Mg Tablet PO 05/10/24 12:27 1 mg ONCE ONE Administration Methylprednisolone Sodium Succinate 125 mg 05/10/24 12:06 05/10/24 12:38 Methylprednisolone Sod Succ 62.5 Mg/Ml (125) IVP 05/10/24 12:07 Not Given ONCE ONE Ondansetron HCl 4 mg 05/10/24 12:06 05/10/24 12:38 Ondansetron 2 Mg/Ml Inj IVP 05/10/24 12:07 Not Given ONCE ONE Medical Decision Making MDM Narrative Medical decision making narrative: 83-year-old female with a history of MR and challenging behaviors a baseline (tends to be a pincher and a Grabber) presenting to the ER today for concern with swelling in her left foot. She had a fall with a left patella fracture on and has been in a knee immobilizer since then. I suspect that her left foot has been more swollen probably due to some lymphatic outflow obstruction because the knee immobilizer was fairly tight on her distal thigh. We loose in the knee immobilizer here and it seems to be fitting more properly now. Concern would also be for potential DVT. Ultrasound is obtained and is fortunately negative for DVT. She did require oral meds for anxiolysis and sedation in order to obtain imaging for the ultrasound. At this point there is no evidence for any cellulitis in the leg, no concern for fracture in the foot or ankle, she has strong pulses and normal cap refill and no sign of acute limb ischemia. Discussed with the patient's retirement that readjusting the fit of the knee immobilizer as needed and taking it off for a period of the day t to allow better blood and lymphatic flow would be reasonable. As much as possible keep the patient's knee extended, to allow the patella to heal. Follow up with Ortho this week. Imaging Data Left lower extremity venous ultrasound: Attestation: I have reviewed the pertinent imaging results. My impression: Verbal report from support service tech is that scan is negative for DVT. Radiologist's impression: IMPRESSION: Technically challenging exam. No deep venous thrombosis identified in the left lower extremity. Discharge Plan Discharge Clinical Impression: Left leg swelling Patellar fracture Qualifiers: Encounter type: initial encounter Fracture type: closed Fracture morphology: unspecified fracture morphology Fracture alignment: nondisplaced Laterality: left Qualified Code(s): S82.002A - Unspecified fracture of left patella, initial encounter for closed fracture Patient Disposition: Home, Self-Care Condition: Stable Instructions: Patellar Fracture (ED) Additional Instructions: As we discussed, try to keep her knee straight and immobilized in the immobilizer. This will allow the broken kneecap to heal. Loosen the immobilizer or even take it off for a couple of hours every day to allow blood flow. While the immobilizer is off be sure to keep her knee straight and do not allow the knee to bend too far because this would put strain on the healing kneecap. Monitor the swelling in her leg. If it is getting worse or if she seems to be having worsening pain, duskiness of her foot, redness of the skin of her foot, fevers, please bring her back to the ER for another recheck. Prescriptions: No Action buspirone 15 mg tablet 15 mg PO BID escitalopram oxalate [Lexapro] 20 mg tablet 20 mg PO DAILY levothyroxine 25 mcg capsule 25 mcg PO DAILY lorazepam [Ativan] 1 mg tablet 1 mg PO DAILY PRN Patient Comments: take before test or procedure melatonin 3 mg capsule 3 mg PO DAILY potassium chloride [K-Tab] 10 mEq tablet extended release 10 meq PO BID quetiapine 150 mg tablet 150 mg PO DAILY quetiapine [Seroquel] 300 mg tablet 300 mg PO QHS oxycodone 5 mg tablet See Rx Instructions .ROUTE .COMPLEX PRN (Reason: pain) Qty: 12 0RF Rx Instructions: Can take 2.5 mg to 5 mg as needed for pain every 4 hours Follow Up/Referrals: Dat Smith MD [Primary Care Provider] - Stand Alone Forms: [facility] Info Instructions
[2024-05-10] MEDS: LORazepam 1 MG TABLET PO (12:37)
--- OUTSIDE RECORDS SUMMARY | 2024-05-10 12:58 | XMS_ITS | Clinical Summary ---
Author Organization [email or web address] [facility] Address [place], [place] [address] Care Team Providers Care Fiber Optic Technician Name Role Phone Dat Smith MD Primary Care Provider Thomas Mills MD Unavailable Basim Carias Unavailable [phone] Allergies No known active allergies Medications Medication Sig Dispensed Refills Start Date End Date Status BUSPAR 15 MG TAB take 1 tablet (15mg) by oral route 2 times per day 0 Active QUEtiapine (SEROQUEL) 50 mg tablet One oral at bedtime for total of 250mg at bedtime. 0 02/08/2012 Active Wheel ChairIndications:Ga it instability Wheelchair: Standard. Length of need: 99 months 1 Device 09/04/2017 Active miscellaneous medical supply miscIndications:Uns table gait Seat belt for wheelchair 1 Units 07/31/2019 Active escitalopram oxalate (LEXAPRO) 20 mg tablet Take 20 mg by mouth once daily. 03/24/2022 Active QUEtiapine (SEROQUEL) 100 mg tablet TAKE ONE TABLET BY MOUTH EVERY MORNING ALONG WITH (50MG) FOR TOTAL OF (150MG) 08/27/2022 Active QUEtiapine (SEROQUEL) 300 mg tablet TAKE ONE TABLET BY MOUTH AT BEDTIME ALONG WITH (50MG) FOR TOTAL OF 350MG 08/27/2022 Active levothyroxine (SYNTHROID) 25 mcg tabletIndications:A cquired hypothyroidism Take 1 Tablet (25 mcg) by mouth once daily. 90 Tablet 3 05/22/2023 Active potassium chloride (KLOR-CON) 10 mEq extended-release tablet (part/cryst)Indicat ions:Hypokalemia TAKE 2 TABLETS (20MEQ) BY MOUTH ONCE DAILY WITH A MEAL. 180 Tablet 3 05/22/2023 Active linaCLOtide (LINZESS) 145 mcg cap capsuleIndications: Chronic constipation Take 1 Capsule (145 mcg) by mouth before breakfast. 30 Capsule 12 06/10/2023 Active bisacodyL (DULCOLAX) 10 mg suppositoryIndicati ons:Constipation, unspecified constipation type Insert 1 Suppository (10 mg) rectally once daily if needed (constipation). 5 Suppository 3 07/05/2023 Active Milk of Magnesia 400 mg/5 mL suspensionIndicatio ns:Constipation, unspecified constipation type On without BM give 30 mL of Milk of Magnesia (MOM) oral in the morning. 473 mL 3 07/08/2023 Active Diaper,Brief, Adult,Disposable (Tranquility Premium Underwear)Indicatio ns:Frequent urinary incontinence FOR HOME USE 6-8 PER DAY 720 Each 3 07/12/2023 Active calcium carbonate-vitamin D3, 600 mg-400 unit, 600 mg-10 mcg (400 unit) tabletIndications:N utritional deficiency TAKE ONE CAPLET BY MOUTH ONCE DAILY 90 Tablet 2 08/20/2023 Active polyethylene glycoL (MIRALAX) 17 gram/scoop powderIndications:C onstipation, unspecified constipation type Mix 1 scoop (17 g) in liquid then take by mouth two times daily. 1700 g 3 04/08/2024 Active Active Problems Problem Noted Date Diagnosed Date [...] Encounters Date Type Department Care Team Description 05/07/2024 Orders Only [facility] Scanner 1 scan: (1-Ord) KAYLAN, HIP BI W/PELV 1V, 05/07/2024 04/28/2024 Telephone [facility] [address] [place] [address] Dat Smith MD Follow Up (confusion on encounter from 04/28) 04/28/2024 Telephone [facility] [address] [place] [address] Dat Smith MD Reinstate safety belt (Safety belt) 04/16/2024 1:23 PM CDT - 04/16/2024 11:59 PM CDT Hospital Encounter [address] [address] Dat Smith MD Clark, Sushma A, OT Frequent falls 04/16/2024 Travel 04/06/2024 Refill [facility] [address] [place] [address] Dat Smith MD Refill Request (Gavilax) 03/29/2024 Telephone [facility] [address] [place] [address] Dat Smith MD Results 03/27/2024 9:15 AM CDT Orders Only [facility] [address] [place] [address] Lab, [facility] 03/27/2024 Telephone [facility] [address] [place] [address] Dat Smith MD Results 03/26/2024 1:15 PM CDT Office Visit [facility] [address] [place] [address] Dat Smith MD UTI (Dark colored urine and strong odor/); Rash (On left shoulder and allover ) 03/26/2024 Travel 03/24/2024 Telephone [facility] [address] [place] [address] Dat Smith MD Referral (Occupational therapy) from Last 3 Months Immunizations Name Administration Dates Next Due AMB Influenza, IIV3 (Age >=3 years)(Flu Clinic Only) 06/16/2013,07/14/2012,07/25/2011,2009,08/20/2008 Amb Influenza, Inact (High-d ose) (Flu Clinic Only) 07/08/2014 COVID-19 vaccine (Moderna 100mcg/0.5mL) PF, MDV 11/04/2020,10/07/2020 COVID-19 vaccine (SmartShoot-Bio NTech 30mcg/0.3mL) 12YO+ BIVALENT PF, MDV 09/03/2022 COVID-19 vaccine (Pfizer-Bio NTech 30mcg/0.3mL) 12YO+ KALEE-SUCROSE PF, MDV 03/29/2022 COVID-19 vaccine (SmartShoot-Bio NTech 30mcg/0.3mL) PF, MDV 08/31/2021 Influenza, High-dose [...] Procedure Name Priority Date/Time Associated Diagnosis Comments SCAN-RADIOLOGY REPORT 05/07/2024 12:00 AM CDT URINALYSIS MICROSCOPIC Routine 03/27/2024 9:15 AM CDT Malodorous urine URINE CULTURE Routine 03/27/2024 9:15 AM CDT Malodorous urine UA W/ SEDIMENT EXAM REFLEXED PER CRITERIA Routine 03/27/2024 9:15 AM CDT Malodorous urine from Last 3 Months Results * SCAN-RADIOLOGY REPORT (05/07/2024 12:00 AM CDT) Anatomical Region Laterality Modality Other Scanner OTHER * (ABNORMAL) URINALYSIS MICROSCOPIC (03/27/2024 9:15 AM CDT) RBC 0-2 0-2, None Seen /HPF 03/27/2024 10:00 AM CDT [facility] WBC >100(A) 0-2, 3-5, None Seen /HPF 03/27/2024 10:00 AM CDT [facility] BACTERIA Many(A) None Seen, Rare, Few Bacteria/H PF 03/27/2024 10:00 AM CDT [facility] EPITHELIAL CELLS Few None Seen, Few Epi/HPF 03/27/2024 10:00 AM CDT [facility] Urine URINE SPECIMEN / Unknown Non-Blood / Unknown 03/27/2024 9:15 AM CDT 03/27/2024 9:47 AM CDT Dat Smith MD URINE [facility] [address] [place] [address], * (ABNORMAL) URINE CULTURE (03/27/2024 9:15 AM CDT) CULTURE RESULT(A) 03/29/2024 6:56 AM CDT [facility] CULTURE >100,000 CFU/mL Escherichia coli 03/29/2024 6:56 AM CDT [facility] Urine URINE SPECIMEN / Unknown [...] NITROFURANTOIN <=16: S Dat Smith MD MICROBIOLOGY Performing Organization Address [facility]/ZIP Co de Phone Number [facility] [address] [place] [address], [place] * (ABNORMAL) UA W/ SEDIMENT EXAM REFLEXED PER CRITERIA (03/27/2024 9:15 AM CDT) COLOR Yellow Yellow Color 03/27/2024 9:59 AM CDT [facility] CLARITY Slightly Cloudy(A) Clear Clarity 03/27/2024 9:59 AM CDT [facility] SPECIFIC GRAVITY,URINE 1.015 1.010, 1.015, 1.020, 1.025 03/27/2024 9:59 AM CDT [facility] PH,URINE 6.5 6.0, 7.0, 8.0, 5.5, 6.5, 7.5, 8.5 03/27/2024 9:59 AM CDT [facility] UROBILINOGEN, QUALITATIVE Normal Normal EU/dl 03/27/2024 9:59 AM CDT [facility] PROTEIN, URINE Negative Negative mg/dL 03/27/2024 9:59 AM CDT [facility] GLUCOSE, URINE Negative Negative mg/dL 03/27/2024 9:59 AM CDT [facility] KETONES,URINE Negative Negative mg/dL 03/27/2024 9:59 AM CDT [facility] BILIRUBIN,URI NE Negative Negative 03/27/2024 9:59 AM CDT [facility] OCCULT BLOOD,URINE Trace(A) Negative 03/27/2024 9:59 AM CDT [facility] NITRITE Positive(A) Negative 03/27/2024 9:59 AM CDT [facility] LEUKOCYTE ESTERASE Large(A) Negative 03/27/2024 9:59 AM CDT [facility] Urine URINE SPECIMEN / Unknown Non-Blood / Unknown 03/27/2024 9:15 AM CDT 03/27/2024 9:47 AM CDT Dat Smith MD URINE [facility] [address] [place] [address], [place] [phone] from Last 3 Months Advance Directives Documents on File Type Date Recorded Patient Laminator Hand Expl anation Treatment Guidelines 11/29/2022 Treatment Guidelines 12/06/2021 Treatment Guidelines 11/19/2020 Healthcare Directive 12/08/2018 10:31 AM DN R/DNI [place] [facility], 11/19/18 Treatment Guidelines 11/28/2018 11:25 AM D NR/DNI [place] [facility], 11/21/18 Healthcare Directive 11/22/2017 10:20 AM D NR-DNI [place] [facility], 11/19/17 Healthcare Directive 12/03/2016 2:53 PM DN R/DNI [place] [facility], 11/19/16 Healthcare Directive 11/30/2016 3:46 PM RE SUSCITATION GUIDELINES-[facility], 11/23/2016 Healthcare Directive 12/15/2015 3:30 PM [facility] DNR/DNI ORDER, [place] [facility]PT [facility], [facility], 11/20/2015 Healthcare Directive 12/15/2015 3:29 PM DNR /DNI, [facility], 11/17/2015 Healthcare Directive 12/09/2014 3:18 PM [facility] CS RESUSCITATION GUIDELINES, 11/24/14 Treatment Guidelines 11/19/2014 4:00 PM DN R-DNI, [place] [facility], 11/19/14 Care Teams Fiber Optic Technician Relationship Specialty Start Date End Date Dat Smith MD [address] [place] [address] PCP - General 01/24/06 Thomas Mills MD [address] , [address] [place] [address] Psychology 02/06/11 Basim Carias [address] [place] [id number] [employer] 02/08/12
--- NOTE | 2024-05-10 14:05 | CRLHL7_ITS ---
For Patients: As a result of the Cures Act, medical imaging exams and procedure reports are released immediately into your electronic medical record. You may view this report before your referring provider. If you have questions, please contact your health care provider. INDICATION: Foot swelling. TECHNIQUE: Ultrasound venous duplex lower left extremity. Compression venous exam was performed using hensley-scale, color Doppler, and spectral Doppler analysis. COMPARISON: None. FINDINGS: Technically challenging exam due to patient motion. Patent left common femoral vein, femoral vein, popliteal vein, and visualized calf veins. IMPRESSION: Technically challenging exam. No deep venous thrombosis identified in the left lower extremity. Dictated by Tao Tran MD @ 05/10/2024 3:20:10 PM (Electronically Signed)
[2024-05-10 14:35] VITALS: PULSE 102; RESP 24; O2SAT 96
== END 2024-05-10 16:21 | disposition home or self-care (01) ==
PROVIDERS: Emergency Provider Emergency Medicine; PCP Family Medicine
DX: R22.42 Localized swelling, mass and lump, left lower limb (principal); S82.002A Unspecified fracture of left patella, initial encounter for closed fracture
CPT/HCPCS: 93971; 99283; A9270

== ENCOUNTER 2024-08-31 21:00 | Outpatient (CLI) | payer MEDICARE, MEDICAID, SELFPAY | END 2024-08-31 21:01 | disposition home or self-care (01) | PROVIDERS: PCP Family Medicine; Visit Provider Family Medicine | DX: K92.1 Melena (principal) | CPT/HCPCS: A0425; A0429 ==

== ENCOUNTER 2024-08-31 21:21 | Emergency (ER) | payer MEDICARE, MEDICAID, SELFPAY ==
[2024-08-31 21:34] VITALS: PULSE 105; RESP 18; TEMP 36.6; O2SAT 94
--- NOTE | 2024-08-31 21:41 | ED.GENADULT ---
HPI - General Adult General Date Seen: 08/31/24 Chief complaint: GI Bleed Stated complaint: rectal bleeding Time Seen by Provider: 08/31/24 21:35 History of Present Illness HPI narrative: This is an 84-year-old female with a history of developmental delay, a pattern of aggressive behavior (tries to scratch, per EMS) who is a resident of a skilled nursing ([facility]). She is nonverbal and cannot provide any history. She is brought to the ER tonight by EMS. Report from EMS: She has a history of constipation and does have a bowel regimen including milk of magnesia as needed for constipation. She apparently has gone a couple of days without a BM and then passed a firm stool tonight. After passage of the stool, skilled nursing staff noted a small volume of bright red liquid blood. Reports here are little bit unclear but it sounds like there was some blood around the stool and on the toilet paper. Exact volume of blood was not described other than ?not very much. ?. The patient otherwise seems to be fine. No reports of any abdominal pain. No reported fever. EMS was not able to get an IV because of her active scratching and moving her arms. Apparently her skilled nursing staff contacted our on-call nurse who advised transport to the ER for evaluation. The patient is not anticoagulated. Related Data Home Medications ?Medication ?Instructions ?Recorded ?Confirmed buspirone 15 mg tablet 15 mg PO BID 04/30/23 07/21/24 escitalopram oxalate 20 mg tablet 20 mg PO DAILY 04/30/23 07/21/24 (Lexapro) levothyroxine 25 mcg capsule 25 mcg PO DAILY 04/30/23 07/21/24 potassium chloride 10 mEq 10 meq PO BID 04/30/23 07/21/24 tablet,extended release (K-Tab) quetiapine 300 mg tablet (Seroquel) 300 mg PO QHS 04/30/23 07/21/24 bisacodyl 10 mg rectal suppository 10 mg VT DAILY PRN constipation 07/21/24 07/21/24 (OneLAX Bisacodyl) calcium 600 mg (as 1 tab PO QAM 07/21/24 07/21/24 carbonate)-vitamin D3 10 mcg (400 unit) tablet (Calcium 600 + D(3)) linaclotide 145 mcg capsule 145 mcg PO QAM 07/21/24 07/21/24 (Linzess) omeprazole 20 mg capsule,delayed 20 mg PO DAILY 07/21/24 07/21/24 release polyethylene glycol 3350 17 g PO 07/21/24 07/21/24 gram/dose oral powder (Gavilax) quetiapine 100 mg tablet 100 mg PO QAM 07/21/24 07/21/24 Allergies Allergy/AdvReac Type Severity Reaction Status Date / Time No Known Drug Allergies Allergy Verified 07/21/24 10:36 [facility] Medical History Constipation ?K59.00 - Constipation, unspecified (ICD-10) Urinary incontinence ?R32 - Unspecified urinary incontinence (ICD-10) Unspecified hypothyroidism ?E03.9 - Hypothyroidism, unspecified (ICD-10) Unspecified intellectual disabilities ?F79 - Unspecified intellectual disabilities (ICD-10) DNR (do not resuscitate) ?Z66 - Do not resuscitate (ICD-10) 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 Sitting up in her bed. She is alert. She is moving all 4 extremities purposefully and is trying to scratch myself and her nurses. She does not appear uncomfortable or distressed. EMS report that that this is her baseline behavior. HENT: Head: Atraumatic. Nose: Nose normal. Mouth/Throat: Oral mucosa is clear and moist. no trismus. Lips and tongue are pink. Mucous membranes are moist. Eyes: Conjunctivae normal. EOM normal. Pupils equal, round, and reactive to light. No scleral icterus. Neck: Normal range of motion. Neck supple. No tracheal deviation present. Cardiovascular: Normal rate, regular rhythm. No gallop. No friction rub. No murmur heard. Normal capillary refill. Pulmonary/Chest: Effort normal. No stridor. No respiratory distress. Abdominal: Uncooperative and difficult to interpret but no apparent tenderness. Rectal: Performed with 2 female seconds inspector. Normal gluteal cleft. There is a small hemorrhoid/skin tag in the patient's left lateral anus. There is also a small fissure between the folds in the anterior midline of the anus. No active bleeding. Normal rectal tone. No other masses. Musculoskeletal: RUE: Normal range of motion. No tenderness. No deformity LUE: Normal range of motion. No tenderness. No deformity RLE: Normal range of motion. No edema. No tenderness. No deformity LLE: She is sitting up in her bed without any discomfort. Neurological: She is alert. She is at her neurologic baseline according to her skilled nursing staff. She moves all 4 extremities. She grabs and struggles against physical exam which is her baseline. Difficult to get a blood pressure because she is trying to move her arms. She is minimally redirectable. She does not appear angry or aggressively violent. However she does try to scratch myself and her nurses. Skin: Skin is warm and dry. No rash noted. No pallor. Normal capillary refill. Psychiatric: Limited Const: Vital Signs, click to edit/add: Vital Signs - 24 hr 08/31/24 21:34 Temperature 98 F Pulse Rate [Pulse Oximeter] 105 H Respiratory Rate 18 Pulse Oximetry 94 Oxygen Delivery Me thod Room Air Course Vital Signs Vital signs: Initial Vital Signs Temperature 98 F 08/31/24 21:34 Temperature Source Temporal Artery Scan 08/31/24 21:34 Pulse Rate 105 H 08/31/24 21:34 Respiratory Rate 18 08/31/24 21:34 Pulse Oximetry 94 08/31/24 21:34 Oxygen Delivery Method Room Air 08/31/24 21:34 Vital Signs Temperature 98 F 08/31/24 21:34 Pulse Rate 105 H 08/31/24 21:34 Respiratory Rate 18 08/31/24 21:34 Pulse Oximetry 94 08/31/24 21:34 Oxygen Delivery Method Room Air 08/31/24 21:34 Temperature 98 F 08/31/24 21:34 Pulse Rate 105 H 08/31/24 21:34 Respiratory Rate 18 08/31/24 21:34 Pulse Oximetry 94 08/31/24 21:34 Oxygen Delivery Method Room Air 08/31/24 21:34 Medical Decision Making MDM Narrative Medical decision making narrative: This is an 82-year-old female with developmental delay brought in by EMS from her skilled nursing. She apparently passed a constipated stool tonight and that a small amount of bright red blood per rectum. She was sent in for evaluation of rectal bleeding. By report it sounds like this is a very small amount of blood. On my exam we do see evidence for a rectal fissure which is probably triggered by passage of the hard stool. Typically anal fissures do not cause any significant blood loss. She is not anticoagulated. She is hemodynamically stable and at her baseline. At this point I do not think she needs laboratory workup, hemoglobin checked, admission for hemoglobin monitoring, CT scan or further workup as to the cause for bleeding. Discussed with her skilled nursing staff appropriate cares for rectal fissure. Also discussed continue her bowel regimen with a goal of keeping stool softer. Provided verbal and written return precautions to the ER. Discharge Plan Discharge Clinical Impression: Anal fissure Patient Disposition: Home, Self-Care Condition: Stable Instructions: Anal Fissure (ED) Additional Instructions: As we discussed, on her exam tonight we can see signs of a rectal fissure. This is likely caused by passage of hard stool from constipation. Small amounts of red bleeding from a fissure is typical. Usually a fissural will heal without any special medications. It is important check continue her bowel regimen to try to keep her stools soft (goal would be semi formed or consistency of mashed potatoes). She usually does MiraLax 2 times a day. Temporarily, you can not increase the dose up to 3 times daily as needed for the next 7 days to help keep stool softer. Try to keep her rectum and gluteal cleft clean. If she will tolerate it, wipe her after each p.m. or have her soak in a bathtub. Please monitor her carefully. If she has more significant blood loss, or seems to be having pain, fever, or any other problems, please bring her back to the ER right away. Prescriptions: No Action quetiapine 100 mg tablet 100 mg PO QAM Linzess 145 mcg capsule 145 mcg PO QAM calcium carbonate-vitamin D3 [Calcium 600 + D(3)] 600 mg-10 mcg (400 unit) tablet 1 tab PO QAM bisacodyl [OneLAX Bisacodyl] 10 mg suppository 10 mg VT DAILY PRN (Reason: constipation) omeprazole 20 mg capsule,delayed release(DR/EC) 20 mg PO DAILY polyethylene glycol 3350 [Gavilax] 17 gram/dose powder PO buspirone 15 mg tablet 15 mg PO BID escitalopram oxalate [Lexapro] 20 mg tablet 20 mg PO DAILY levothyroxine 25 mcg capsule 25 mcg PO DAILY potassium chloride [K-Tab] 10 mEq tablet extended release 10 meq PO BID quetiapine [Seroquel] 300 mg tablet 300 mg PO QHS Follow Up/Referrals: Dat Smith MD [Primary Care Provider] - Stand Alone Forms: [facility] Info Instructions
== END 2024-08-31 22:05 | disposition home or self-care (01) ==
LOC: ED 21:50
PROVIDERS: Emergency Provider Emergency Medicine; PCP Family Medicine
DX: K60.2 Anal fissure, unspecified (principal)
CPT/HCPCS: 99282; 99283

== ENCOUNTER 2024-10-18 11:23 | Emergency (ER) | payer MEDICARE, MEDICAID, SELFPAY ==
--- NOTE | 2024-10-18 11:25 | ED.GENADULT ---
HPI - General Adult General Date Seen: 10/18/24 Chief complaint: Extremity Pain/Injury, Lower Stated complaint: Unable to bear weight Time Seen by Provider: 10/18/24 11:25 History of Present Illness HPI narrative: 84-year-old female with a past medical history of developmental delay, hypothyroidism, hyperlipidemia, osteoporosis, constipation, , cognitive impairment, nonverbal. She is resident of a retirement. Patient is not able to provide any history or cooperate with exam because of her baseline mental status. The history from her retirement caregivers is that she normally is ambulatory. Her overnight staff reported that she was normal yesterday in ambulatory last night. She came out from her bedroom at about 1:00 a.m. in the morning, was ambulatory . They help to the patient her change her depends and got her back to bed. She when staff came to check on her this morning she was in bed, but seemingly favoring her left leg and not willing to bear weight on it. He staff got her undressed and evaluated her leg. They did not see any scratches, bruising, discoloration, swelling, or deformity. They are not sure she is having pain or not. Her staff reports that she has had a previous left knee fracture and so has some chronic deformity of her left leg from that injury. Staff admit her to Tylenol and ibuprofen this morning but she still not able to bear weight therefore they brought her here to the ER Her staff are pretty sure that she is grimacing and having pain when she tries to step down her left leg. They note that she has been moving a little bit while she is in her wheelchair. Her leg does not appear to be weak or paralyzed. No known fall,. Staff thinks it is unlikely that she would have fallen to the floor and then been able to get herself up unassisted. Related Data Home Medications ?Medication ?Instructions ?Recorded ?Confirmed buspirone 15 mg tablet 15 mg PO BID 04/30/23 07/21/24 escitalopram oxalate 20 mg tablet 20 mg PO DAILY 04/30/23 07/21/24 (Lexapro) levothyroxine 25 mcg capsule 25 mcg PO DAILY 04/30/23 07/21/24 potassium chloride 10 mEq 10 meq PO BID 04/30/23 07/21/24 tablet,extended release (K-Tab) quetiapine 300 mg tablet (Seroquel) 300 mg PO QHS 04/30/23 07/21/24 bisacodyl 10 mg rectal suppository 10 mg GA DAILY PRN constipation 07/21/24 07/21/24 (OneLAX Bisacodyl) calcium 600 mg (as 1 tab PO QAM 07/21/24 07/21/24 carbonate)-vitamin D3 10 mcg (400 unit) tablet (Calcium 600 + D(3)) linaclotide 145 mcg capsule 145 mcg PO QAM 07/21/24 07/21/24 (Linzess) omeprazole 20 mg capsule,delayed 20 mg PO DAILY 07/21/24 07/21/24 release polyethylene glycol 3350 17 g PO 07/21/24 07/21/24 gram/dose oral powder (Gavilax) quetiapine 100 mg tablet 100 mg PO QAM 07/21/24 07/21/24 Allergies Allergy/AdvReac Type Severity Reaction Status Date / Time No Known Drug Allergies Allergy Verified 07/21/24 10:36 [facility] Medical History Constipation ?K59.00 - Constipation, unspecified (ICD-10) Urinary incontinence ?R32 - Unspecified urinary incontinence (ICD-10) Unspecified hypothyroidism ?E03.9 - Hypothyroidism, unspecified (ICD-10) Unspecified intellectual disabilities ?F79 - Unspecified intellectual disabilities (ICD-10) DNR (do not resuscitate) ?Z66 - Do not resuscitate (ICD-10) 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 She is awake. She is in a wheelchair. She is nonverbal and noncooperative. She tries to grab, pinch, and clot at me while I am trying to examine her. Her sats at her side hoping to reassure her and redirect her to prevent her from scratching me HENT: Head: Atraumatic. No depressed skull fracture, Raccoon Eyes, Maher's sign. Face normal. Nose: Nose normal. Mouth/Throat: Oral mucosa is clear and moist. no trismus. Pharynx normal. Eyes: Conjunctivae normal. EOM normal. Pupils equal, round, and reactive to light. No scleral icterus. Neck: Normal range of motion. Neck supple. No tracheal deviation present. Cardiovascular: Normal rate, regular rhythm. No gallop. No friction rub. No murmur heard. Symmetric PT artery pulses normal cap refill in both feet. Pulmonary/Chest: Effort normal. No stridor. No respiratory distress. No wheezes. No rales. No rhonchi . No ribcage tenderness. Abdominal: Soft. Bowel sounds normal. No distension. No mass. No tenderness. No rebound. No guarding. Musculoskeletal: RUE: Normal range of motion. No tenderness. No deformity LUE: Normal range of motion. No tenderness. No deformity Moves both upper extremities purposefully to scratch and pinch me. RLE: Normal range of motion. No edema. No tenderness. No deformity LLE: Exam is difficult because of her baseline mental status, nonverbal state, uncooperative [place]. She seems to grimace with palpation of of majority of her leg. Her staff notes that she does not like it when people touch her. No obvious crepitus or deformity or bruising of her hip, femur, tibia, fibula, ankle. She does have some bruising over the dorsum of her midfoot and forefoot. She grimaces with palpation of all of her toes. Staff notes that in particular she does not like her toes touched. She does not have any obvious bruising or discoloration of her toes. I would note that she has an apparent fracture through proximal full and she of her a 5th toe on x-ray, but she does not have any bruising or swelling of that toe. She tries to kick me when I touch her foot, which seems to be more of a reaction to palpation of the rest of her leg, but no definitive tenderness there. With her socks off I can see a little bit of bruising on the dorsum of the medial midfoot and medial/lateral metatarsals. No swelling. No deformity. Her staff notes that the bruising was not visible when they checked her foot earlier this morning In her wheelchair, She does prefer to keep her left leg in a position where the hip is slightly externally rotated which as a result gives her a leg length discrepancy. Left heel appears to be an intra 2 shorter than her right heel. However her retirement staff says that seems to be the way she normally hold her legs. She grimaces with palpation of her left hip, left femur, left distal femur at the knee, proximal tibia and fibula, left ankle. When we repositioned around the bed for exam the leg length discrepancy is no longer apparent. Neurological: Alert and awake and moving both upper extremities purposefully. nonverbal and non cooperative. She is at her baseline. Normal strength. CN II-VII intact. No sensory deficit. GCS eye subscore is 4. GCS verbal subscore is 5. GCS motor subscore is 6. Normal coordination Skin: Skin is warm and dry. No rash noted. No pallor. Normal capillary refill. Psychiatric: At times grimaces. She tries to pinch me in scratch be with her fingernails which is her baseline. Per her retirement staff, she does not like anyone touching her and tends to be aggressive with strangers Const: Vital Signs, click to edit/add: Vital Signs - 24 hr 10/18/24 11:30 Temperature 98.6 F Respiratory Rate 22 Course Vital Signs Vital signs: Initial Vital Signs Temperature 98.6 F 10/18/24 11:30 Temperature Source Temporal Artery Scan 10/18/24 11:30 Respiratory Rate 22 10/18/24 11:30 Vital Signs Temperature 98.6 F 10/18/24 11:30 Respiratory Rate 22 10/18/24 11:30 Temperature 98.6 F 10/18/24 11:30 Respiratory Rate 22 10/18/24 11:30 Medical Decision Making MDM Narrative Medical decision making narrative: 84-year-old female who is nonverbal from a retirement brought to the ER today because she is having difficulty walking and seems to be unwilling to bear weight on her left lower extremity. No history of fall. She was ambulatory, per report from sole rougher, at about 1:00 a.m. this morning. Differential here is broad. Overall she is hemodynamically stable and clinically well-appearing. She has no focal neurologic deficits to suggest stroke or spinal cord injury causing left leg paralysis. She has normal cap refill and strong palpable pulses. No evidence for acute limb ischemia Per retirement staff at home she had no signs of visible injury. After we took her pants off and socks off, on our physical exam here she does have signs of bruising on her left foot (which were not there earlier this morning). No definite tenderness on the foot but she seems to grimace with palpation on most of her lower leg so it is very difficult to localize a precise area of pain. There is also potentially some leg rotation and foreshortening when she was sitting in her wheelchair. Therefore I ordered x-ray the patient's left hip and pelvis, left knee, left ankle. Also left foot. Knee x-rays of the hip, knee, ankle show no acute injury. She does have a little bit of deformity around her patella which may relate to previously known patellar fracture. There is no bruising or swelling on the patella suggest an acute re-injury. On the x-rays of the patient's foot I do not see any evidence for foot fracture in the hindfoot, midfoot, or metatarsals (to correspond with her bruising). X-rays do show evidence for a fracture through the proximal phalanges of the 5th digit. There seems to be some sclerosis around the fracture line suggesting is probably chronic and has a nonunion. There is no bruising or swelling of that toe to suggest an acute fracture. 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 At this point no evidence for any acute serious fracture of the patient's hip, femur, patella, distal femur, proximal fibula, ankle, or foot. It is possible that her difficulty with weight-bearing is simply due to bruising or sprain of her foot. Her retirement staff notes that she normally does not wear shoes and could have stubbed her foot without anyone knowing. Her retirement staff are comfortable managing her there. Although she normally walks around in the past they been able to manage her with wheelchair transfers and stand/pivot transfers. That can help keep weight off of her injured leg for the next couple of days. If this is a foot contusion or sprain it should heal over the next couple of days. If she is not able bear weight after 2 days, they will return to the ER recheck with her primary for re-evaluation and repeat imaging. The return to the ER sooner if worse. Tylenol or ibuprofen if needed for pain. correction staff does not think that she would tolerate ice. Imaging Data XR L foot: Attestation: I have reviewed the pertinent imaging results. My impression: There appears to be a fracture through the 5th digit proximal phalanges, Radiologist's impression: IMPRESSIONS: 1. No acute osseous injuries or abnormalities are noted. 2. 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 XR ankle L: Attestation: I have reviewed the pertinent imaging results. My impression: no fractures Radiologist's impression: IMPRESSION: 1. No acute osseous injuries or abnormalities are noted. XR left knee: Attestation: I have reviewed the pertinent imaging results. My impression: no definite acute fracture. bony irregularty of patella, but unclear if new Radiologist's impression: FINDINGS: Bone: Remote fracture deformity in inferior patella is present with 6 mm incongruity at the articular surface, slightly increased from prior exam. Severe diffuse osteopenia present. Joint: Severe lateral and mild medial and patellofemoral compartment osteophyte is noted. Small joint effusion is present. Soft tissue: Unremarkable. No radiopaque foreign bodies are seen. IMPRESSION: 1. Small joint effusion is present. xr L hip: Attestation: I have reviewed the pertinent imaging results. My impression: No acute fracture. Screws from old L fem neck repair Radiologist's impression: IMPRESSION: 1. No acute osseous injuries or abnormalities are noted. Discharge Plan Discharge Clinical Impression: Left foot pain Patient Disposition: Home w/ Parent or Adult Condition: Stable Instructions: Foot Contusion (ED) Additional Instructions: As we discussed, at this time the x-rays of her left hip, pelvis, left knee, left ankle, and left foot looked good. We do not see any fresh broken bones. We see signs that she has a previous kneecap fracture and also a old fracture of her left 5th toe (pinky toe). We do not see any broken bones that look acute or new. She does have signs of bruising on her left foot and I suspect that she probably has a left foot sprain or contusion. To manage her foot pain, you can continue giving her Tylenol or ibuprofen. If she will tolerate it, you could apply an ice pack for 15 minutes every 3-4 hours. While she is having trouble bearing weight on her left leg, please help with her transfers and use her wheelchair as needed. As she gets better, she is allowed to bear weight as tolerated If she is not improving over the next 48 -72 hours, please recheck with her regular doctor, or come back to the ER If she gets worse or you have any new concerns, please bring her back to the ER right away. Prescriptions: No Action quetiapine 100 mg tablet 100 mg PO QAM Linzess 145 mcg capsule 145 mcg PO QAM calcium carbonate-vitamin D3 [Calcium 600 + D(3)] 600 mg-10 mcg (400 unit) tablet 1 tab PO QAM bisacodyl [OneLAX Bisacodyl] 10 mg suppository 10 mg GA DAILY PRN (Reason: constipation) omeprazole 20 mg capsule,delayed release(DR/EC) 20 mg PO DAILY polyethylene glycol 3350 [Gavilax] 17 gram/dose powder PO buspirone 15 mg tablet 15 mg PO BID escitalopram oxalate [Lexapro] 20 mg tablet 20 mg PO DAILY levothyroxine 25 mcg capsule 25 mcg PO DAILY potassium chloride [K-Tab] 10 mEq tablet extended release 10 meq PO BID quetiapine [Seroquel] 300 mg tablet 300 mg PO QHS Follow Up/Referrals: Dat Smith MD [Primary Care Provider] - Stand Alone Forms: [employer] Info Instructions
--- OUTSIDE RECORDS SUMMARY | 2024-10-18 11:25 | XMS_ITS | Clinical Summary ---
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 0 02/08/20 12 Active Wheel ChairIndications:G ait instability Wheelchair: Standard. Length of need: 99 months 1 Device 09/04/20 17 Active miscellaneous medical supply miscIndications:Un stable gait Seat belt for wheelchair 1 Units 07/31/20 19 Active escitalopram oxalate (LEXAPRO) 20 mg tablet Take 20 mg by mouth once daily. 03/24/20 22 Active QUEtiapine (SEROQUEL) 100 mg tablet TAKE ONE TABLET BY MOUTH EVERY MORNING ALONG WITH (50MG) FOR TOTAL OF (150MG) 08/27/20 22 Active QUEtiapine (SEROQUEL) 300 mg tablet TAKE ONE TABLET BY MOUTH AT BEDTIME ALONG WITH (50MG) FOR TOTAL OF 350MG 08/27/20 22 Active Milk of Magnesia 400 mg/5 mL suspensionIndicati ons:Constipation, unspecified constipation type On without BM give 30 mL of Milk of Magnesia (MOM) oral in the morning. 473 mL 3 07/08/20 23 Active polyethylene glycoL (MIRALAX) 17 gram/scoop powderIndications: Constipation, unspecified constipation type Mix 1 scoop (17 g) in liquid then take by mouth two times daily. 1700 g 3 04/08/20 24 Active calcium carbonate-vitamin D3, 600 mg-400 unit, 600 mg-10 mcg (400 unit) tabletIndications: Nutritional deficiency TAKE ONE TABLET BY MOUTH ONCE DAILY 90 Tablet 2 05/28/20 24 Active omeprazole 20 mg tabletIndications: Gastroesophageal reflux disease without esophagitis Take 1 Tablet (20 mg) by mouth once daily before a meal. 30 Tablet 06/05/20 24 Active ibuprofen (ADVIL; MOTRIN) 600 mg tabletIndications: Closed nondisplaced transverse fracture of left patella with routine healing, subsequent encounter Take 1 Tablet (600 mg) by mouth three times daily with meals. To be given at the same time as acetaminophen. 90 Tablet 06/05/20 24 Active acetaminophen (TYLENOL EXTRA STRGTH) 500 mg tabletIndications: Closed nondisplaced transverse fracture of left patella with routine healing, subsequent encounter Take 2 Tablets (1,000 mg) by mouth three times daily. To be given at same time as ibuprofen. 180 Tablet 06/05/20 24 Active bisacodyL (DULCOLAX) 10 mg suppositoryIndicat ions:Constipation, unspecified constipation type Insert 1 Suppository (10 mg) rectally once daily if needed (constipation) . 5 Suppository 3 06/05/20 24 Active linaCLOtide (LINZESS) 145 mcg cap capsuleIndications :Chronic constipation Take 1 Capsule (145 mcg) by mouth before breakfast. 90 Capsule 3 06/05/20 24 Active potassium chloride (KLOR-CON M10) 10 mEq extended-release tablet (part/cryst)Indica tions:Hypokalemia TAKE 2 TABLETS (20MEQ) BY MOUTH ONCE DAILY WITH A MEAL. 180 Tablet 3 06/05/20 24 Active levothyroxine (SYNTHROID) 25 mcg tabletIndications: Acquired hypothyroidism TAKE 1 TABLET (25 MCG) BY MOUTH ONCE DAILY. 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 Non-verbal Unspecified hypothyroidism 01/22/2007 Other and unspecified hyperlipidemia 01/22/2007 Complete edentulism, unspecified(525.40) 007 Osteoporosis, unspecified 01/22/2007 Resolved Problems Problem Noted Date Diagnosed Date Resolved Date Hypokalemia 03/29/2022 06/05/2024 Unspecified mental or behavioral problem 01/22/2007 03/29/2022 Diabetes insipidus 01/22/2007 0 Overview (01/22/2007): 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 Frequent urinary incontinence 03/29/2022 Encounters Date Type Department Care Team Description 07/28/2024 Refill [facility] [address] [place] [address] Dat Smith MD Refill Request 07/27/2024 Refill [facility] [address] [place] [address] Dat Smith MD Refill Request (Omeprazole) from Last 3 Months Immunizations Name Administration Dates Next Due AMB Influenza, IIV3 (Age >=3 years)(Flu Clinic Only) 06/16/2013,07/14/2012,07/25/2011,2009,08/20/2008 Amb Influenza, Inact (High-d ose) (Flu Clinic Only) 07/08/2014 COVID-19 vaccine (Moderna 100mcg/0.5mL) PF, MDV 11/04/2020,10/07/2020 COVID-19 vaccine (Pfizer-Bio NTech 30mcg/0.3mL) 12YO+ BIVALENT PF, MDV 09/03/2022 COVID-19 vaccine (Pfizer-Bio NTech 30mcg/0.3mL) 12YO+ KALEE-SUCROSE PF, MDV 03/29/2022 COVID-19 vaccine (EsLifeBio NTech 30mcg/0.3mL) PF, MDV 08/31/2021 Influenza, High-dose [...] Never Smokeless Tobacco: Never Tobacco Cessation:Counseling Given: No Alcohol Use Standard Drinks/Week Comments No 0 (1 standard drink = 0.6 oz pur e alcohol) Financial Resource Strain Answer Date R ecorded Difficulty of Paying Living Expenses Not on file 08/31/2021 Difficulty of Paying Living Expenses Not on file 08/31/2021 Comments No Sex and Gender Information Value Date Recorded Sex Assigned at Not on file Legal Sex 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 Gender Identity Not on file Sexual Orientation Not on file Obstetrics History Last Filed Vital Signs Vital Sign Reading Time Taken Comments Blood Pressure 108/78 02/08/2012 1:38 PM CDT Pulse 95 04/04/2018 11:26 AM CDT Temperature 36.6 C (97.8 F) 09/04/2017 1:21 PM ANODIC OPERATOR Respiratory Rate 18 03/17/2013 2:08 PM CDT [...] 50+ (2 of 3) 11/04/2014 09/09/2014, 07/17/2013 RSV vaccine for adults or (1 - 1-dose 75+ series) 2017 Tetanus booster 02/07/2022 02/08/2012, 01/11/2003 BMI (ht and wt on same day) for age 18+ 04/25/2024 04/25/2023, 08/23/2016, 10/26/2015 COVID-19 vaccine series ( season) 2024 07/01/2023, 09/03/2022, 03/29/2022, Additional history exists Influenza for age 65+ 05/10/2024 05/22/2023 , 09/03/2022, 08/01/2021, Additional history exists Medicare Wellness for age 65+ 06/06/2025, 05/22/2023, 03/29/2022, Additional history exists Tdap Completed 02/08/2012 Pneumococcal series for age 50+ Completed 05/22/2023, 03/23/2015, 02/02/2009 Insurance MEDICARE PB ONLY MEDICAID MEDICARE PART B HB ONLY MEDIC[place] [address] MEDICAID MEDICARE PPS Advance Directives Documents on File Type Date Recorded Patient Bung Sewer Expl anation Treatment Guidelines 11/29/2022 Treatment Guidelines [...] Healthcare Directive 11/30/2016 3:46 PM RE SUSCITATION GUIDELINES-[facility], 11/23/2016 Healthcare Directive 12/15/2015 3:30 PM [facility] DNR/DNI ORDER, [place] [facility]PT [facility], [facility], 11/20/2015 Healthcare Directive 12/15/2015 3:29 PM DNR /DNI, [facility], 11/17/2015 Healthcare Directive 12/09/2014 3:18 PM [facility] RESUSCITATION GUIDELINES, 11/24/14 Treatment Guidelines 11/19/2014 4:00 PM DN R-DNI, [place] [facility] [place] [facility], 11/19/14 Care Teams 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
[2024-10-18 11:30] VITALS: RESP 22; TEMP 37
--- NOTE | 2024-10-18 11:43 | CRLHL7_ITS ---
For Patients: As a result of the Cures Act, medical imaging exams and procedure reports are released immediately into your electronic medical record. You may view this report before your referring provider. If you have questions, please contact your health care provider. INDICATION: Non communicative. Unable to bear weight TECHNIQUE: Pelvis radiograph, Hip radiograph 3 views left COMPARISON: 05/07/2024 FINDINGS: Bone: ORIF of the left femoral neck with 3 cannulated lag screws are noted without interval change. Moderate diffuse osteopenia is present. Both iliac crest partially excluded. Joint: The hip joints are unremarkable. The visualized sacroiliac joints are unremarkable in appearance. The pubic symphysis is normal in appearance. Soft tissue: Unremarkable. No radiopaque foreign bodies are seen. IMPRESSION: 1. No acute osseous injuries or abnormalities are noted. Dictated by Wei Sanders MD @ 10/18/2024 12:45:29 PM Dictated by: Wei Sanders MD @ 10/18/2024 12:45:32 (Electronically Signed)
--- NOTE | 2024-10-18 11:43 | CRLHL7_ITS ---
For Patients: As a result of the Century Cures Act, medical imaging exams and procedure reports are released immediately into your electronic medical record. You may view this report before your referring provider. If you have questions, please contact your health care provider. INDICATION: Non-communicative. Unable to bear weight TECHNIQUE: Knee radiograph 3 views left COMPARISON: 05/07/2024 FINDINGS: Bone: Remote fracture deformity in inferior patella is present with 6 mm incongruity at the articular surface, slightly increased from prior exam. Severe diffuse osteopenia present. Joint: Severe lateral and mild medial and patellofemoral compartment osteophyte is noted. Small joint effusion is present. Soft tissue: Unremarkable. No radiopaque foreign bodies are seen. IMPRESSION: 1. Small joint effusion is present. Dictated by Wei Sanders MD @ 10/18/2024 12:46:29 PM Dictated by: Wei Sanders MD @ 10/18/2024 12:46:33 (Electronically Signed)
--- NOTE | 2024-10-18 11:43 | CRLHL7_ITS ---
For Patients: As a result of the Century Cures Act, medical imaging exams and procedure reports are released immediately into your electronic medical record. You may view this report before your referring provider. If you have questions, please contact your health care provider. INDICATION: Non-communicative. Unable to bear weight TECHNIQUE: Ankle radiograph 3 views left COMPARISON: None FINDINGS: Bone: No acute fractures or aggressive bone lesions are identified. Severe diffuse osteopenia is noted. 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 No significant ankle effusion is seen. Soft tissue: The [place] fat pad and the Achilles` tendon are normal in appearance. No radiopaque foreign bodies are seen. IMPRESSION: 1. No acute osseous injuries or abnormalities are noted. Dictated by: Wei Sanders MD @ 10/18/2024 12:47:01 (Electronically Signed)
--- OUTSIDE RECORDS SUMMARY | 2024-10-18 12:14 | XMS_ITS | Clinical Summary ---
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 Name Role Phone Dat Smith MD Primary Care Provider Thomas Mills MD Unavailable Basim Carias Unavailable [phone] Allergies No known active allergies Medications [...] Type Department Care Team Description 07/28/2024 Refill [facility] [address] [place] [address] Dat Smith MD Refill Request 07/27/2024 Refill [facility] [address] [place] [address] Dat Smith MD Refill Request (Omeprazole) from Last 3 Months Immunizations Name Administration Dates Next Due AMB Influenza, IIV3 (Age >=3 years)(Flu Clinic Only) 06/16/2013,07/14/2012,07/25/2011,2009,08/20/2008 Amb Influenza, Inact (High-d ose) (Flu Clinic Only) 07/08/2014 COVID-19 vaccine (Moderna 100mcg/0.5mL) PF, MDV 11/04/2020,10/07/2020 COVID-19 vaccine (Pfizer-Bio NTech 30mcg/0.3mL) 12YO+ BIVALENT PF, MDV 09/03/2022 COVID-19 vaccine (Pfizer-Bio NTech 30mcg/0.3mL) 12YO+ KALEE-SUCROSE PF, MDV 03/29/2022 COVID-19 vaccine (PipewiseBio NTech 30mcg/0.3mL) PF, MDV 08/31/2021 Influenza, High-dose [...] on file Legal Sex Female 6:47 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 Gender Identity Not on file Sexual Orientation Not on file Obstetrics History Last Filed Vital Signs Vital Sign Reading Time Taken Comments Blood Pressure 108/78 02/08/2012 1:38 PM CDT Pulse 95 04/04/2018 11:26 AM CDT Temperature 36.6 C (97.8 F) 09/04/2017 1:21 PM APPLIED EXERCISE PHYSIOLOGIST Respiratory Rate 18 03/17/2013 2:08 PM CDT [...] HB ONLY [place] [address] MEDICAID MEDICARE PPS Advance Directives Documents on File Type Date Recorded Patient Psych Specialist Expl anation Treatment Guidelines 11/29/2022 Treatment Guidelines 12/06/2021 Treatment Guidelines 11/19/2020 Healthcare Directive 12/08/2018 10:31 AM DN R/DNI, [place] [facility], 11/19/18 Treatment Guidelines 11/28/2018 11:25 AM D NR/DNI, [place] [facility], 11/21/18 Healthcare Directive 11/22/2017 10:20 AM D NR-DNI, [place] [facility], 11/19/17 Healthcare Directive 12/03/2016 2:53 PM DN R/DNI [place] [facility], 11/19/16 Healthcare Directive 11/30/2016 3:46 PM [facility], 11/23/2016 Healthcare Directive 12/15/2015 3:30 PM [facility] DNR/DNI ORDER, [place] [facility] [place], [facility], 11/20/2015 Healthcare Directive 12/15/2015 3:29 PM DNR /DNI, [facility], 11/17/2015 Healthcare Directive 12/09/2014 3:18 PM [facility] RESUSCITATION GUIDELINES, 11/24/14 Treatment Guidelines 11/19/2014 4:00 PM DN R-DNI, [place] [facility], 11/19/14 Care Teams Mixer Crane Operator Relationship Specialty Start Date End Date Dat Smith MD [address] [place] [address] PCP - General 01/24/06 Thomas Mills MD [address] , [address] [place] [address] Psychology 02/06/11 Basim Carias [address] [place] [id number] International Marketing Intern 02/08/12
--- NOTE | 2024-10-18 12:16 | CRLHL7_ITS ---
For Patients: As a result of the Cures Act, medical imaging exams and procedure reports are released immediately into your electronic medical record. You may view this report before your referring provider. If you have questions, please contact your health care provider. INDICATION: Non-communicative. Unable to bear weight, foot injury TECHNIQUE: Foot radiograph 3 views left COMPARISON: None FINDINGS: Evaluation of the digits on the lateral examination is moderately degraded due to overlapped digit positioning and toe flexion on all views. 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 Remote, healed fracture deformity of the 5th metatarsal is noted. Severe diffuse osteopenia is present. Joint: The visualized hindfoot, midfoot, and forefoot joints are unremarkable in appearance. No significant ankle effusion is seen. Soft tissue: Unremarkable. No radiopaque foreign bodies are seen. IMPRESSIONS: 1. No acute osseous injuries or abnormalities are noted. 2. 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 Dictated by Wei Sanders MD @ 10/18/2024 12:48:20 PM Dictated by: Wei Sanders MD @ 10/18/2024 12:48:24 (Electronically Signed)
== END 2024-10-18 14:29 | disposition home or self-care (01) ==
PROVIDERS: Emergency Provider Emergency Medicine; PCP Family Medicine
DX: M79.672 Pain in left foot (principal)
CPT/HCPCS: 73502; 73560; 73610; 73630; 99283

== ENCOUNTER 2024-10-21 10:22 | Emergency (ER) | payer MEDICARE, MEDICAID, SELFPAY ==
--- NOTE | 2024-10-21 11:20 | ED.GENADULT ---
HPI - General Adult General Date Seen: 10/21/24 Chief complaint: Extremity Pain/Injury, Lower Stated complaint: Leg pain Time Seen by Provider: 10/21/24 11:20 Source: patient, RN notes reviewed and other (RN from the facility is accompanying patient.) Mode of arrival: wheelchair Limitations: other (Patient has profound mental limitations, known PKU) History of Present Illness HPI narrative: This 84-year-old female is seen on arrival to room 8, she is brought in by the RN from the healthcare facility. She still will not bear any weight, has had decreased oral intake for food at times in usually loves to eat. She was in on Saturday, they x-rayed her lower extremities reportedly. Patient had quit bearing weight from Saturday to Saturday. She was up around 1:00 a.m. early Saturday morning and staff did usual cares. Patient usually will get herself up at 5:30 a.m. and when she did not, staff went to assist her. She will not bear weight, they are noticing bruising on the left lower leg, on the outside of the leg below the knee into the ankle area. She is a high fall risk but there was no noted falls. There presuming she must have fallen in between her last cares around 1:00 a.m. to when staff went to assist when she would not get out of bed. She has been agitated at times. Yesterday she would not eat lunch, was crying, the nurse gave her some Tylenol, got a cool compress on the left outer lower leg and patient proceeded to follow sleep for 3-1/2 hours. There have been no fevers. She does have a history of a left patella fracture managed non operatively by Orthopedics. This was last year. Per RN, patient will scratch, pinch. Related Data Home Medications ?Medication ?Instructions ?Recorded ?Confirmed buspirone 15 mg tablet 15 mg PO BID 04/30/23 10/21/24 escitalopram oxalate 20 mg tablet 20 mg PO DAILY 04/30/23 10/21/24 (Lexapro) levothyroxine 25 mcg capsule 25 mcg PO DAILY 04/30/23 10/21/24 potassium chloride 10 mEq 10 meq PO BID 04/30/23 10/21/24 tablet,extended release (K-Tab) quetiapine 300 mg tablet (Seroquel) 300 mg PO QHS 04/30/23 10/21/24 bisacodyl 10 mg rectal suppository 10 mg WI DAILY PRN constipation 07/21/24 07/21/24 (OneLAX Bisacodyl) calcium 600 mg (as 1 tab PO QAM 07/21/24 10/21/24 carbonate)-vitamin D3 10 mcg (400 unit) tablet (Calcium 600 + D(3)) linaclotide 145 mcg capsule 145 mcg PO QAM 07/21/24 10/21/24 (Linzess) polyethylene glycol 3350 17 17 g PO BID 07/21/24 10/21/24 gram/dose oral powder (Gavilax) quetiapine 100 mg tablet 100 mg PO QAM 07/21/24 10/21/24 Previous Rx's ?Medication ?Instructions ?Recorded oxycodone 5 mg tablet 5 mg PO TID pain #4 tabs 10/21/24 Allergies Allergy/AdvReac Type Severity Reaction Status Date / Time No Known Drug Allergies Allergy Verified 07/21/24 10:36 Review of Systems Narrative: As per HPI, per the RN providing history, patient cannot give us history as she is not verbal. 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 She is alert, breathing independently, does not seem to have any respiratory issues. Sclera clear, conjugate gaze. Do listen to her anterior chest briefly, regular rate and rhythm, no murmur, normal S1-S2. Lungs are clear anteriorly in the upper chest, patient pushes me away after that. She is moving both of her arms. We do whole her pant leg up on the left 1, she has significant bruising from left at leg below the knee all the way down the outer left leg to the ankle area. She will fully flex and extend the knee, there is no anterior knee erythema or ecchymosis. Do not feel any significant effusion of the knee. Patella does not seem to be tender. When I palpate in the bruised area or throughout her lower extremity, ankle and foot, do not seem to exhibit any pain response in her. Documenting provider has reviewed patient's vital signs: yes Course Course ED Course: This patient is going to be reportedly difficult for cares per her RN. We will try to get a left tib-fib x-ray to look at these 2 bones in continuity. I am going to give her 2.5 mg oxycodone and see if that does help her, there certainly seems to be a possible pain response here. Will check some labs as well. We will consider D-dimer. May need to get an ultrasound, may need to get CT imaging. It is possible that she has a hematoma even potential ruptured Stephens's cyst that is causing pain now for which she does not want to ambulate. There still could be underlying stress fracture given her osteopenia. May need to consider CT imaging if we cannot find any other cause. Reevaluation(s) Time of Reevaluation #1: 12:06 Reevaluation #1: X-ray imaging is negative of the tib-fib on the left. Awaiting labs. Do think I will proceed with venous ultrasound at this point. Will see if the oxycodone is sufficient in keeping this patient comfortable, may need to do some intranasal Versed. Time of Reevaluation #2: 12:32 Reevaluation #2: Patient required assistive to despite the oxycodone to have her labs drawn. She does have significant aggression and probably underlying anxiety when staff is approaching her and attempting to do cares. Patient very likely does not understand why we are attempting to do things to her. We will see if respiratory therapy can come down, will give her intranasal Versed. Have ordered a total 4 mg but nursing staff and I plan on giving 2 mg with a repeat dose of 2 if needed. Will see if we can get pulse oximetry and cardiac monitoring on her if she does become sedated enough that we can monitor this. My hope is for anxiolysis rather than sedation. Time of Reevaluation #3: 13:00 Reevaluation #3: Patient is being evaluated with US currently. Required 4mg intranasal versed but is working very well; is on pulse oximetry and cardiac monitoring with the Versed on board, still breathing independently. She still has 2 nurses at bedside helping to hold extremities but is certainly not fighting like she was without the medicine. Respiratory therapy is there is well, there is no concerns with her independent breathing at this time. Additional Reevaluation(s): 1:40 p.m.: Patient is resting comfortably, hemodynamically stable, respiratory status stable. Have reviewed normal labs outside of the minimally low hemoglobin and platelet count. These in of themselves are not concerning but warrant following. X-ray and ultrasound are not showing any acute pathology. She obviously has ecchymosis in probable trauma to this left leg. It may just be painful from the bruising. There certainly is a possibility of underlying stress fracture but as far is doing MRI, this patient would likely need potential intubation and respiratory support to get her through an MRI. We have discussed goals of care with this patient. Her nurse agrees with attempts at giving pain meds at this time, monitoring and following. We have made a follow-up orthopedic appointment. Patient does have a follow-up in clinic with a primary care provider tomorrow. I would recommend a course of oxycodone scheduled along with ongoing Tylenol and ibuprofen. They can see if that is sufficient overnight and follow up in clinic tomorrow. Her nurse is in agreement with this. She would like the 4 tablets of oxycodone from [facility]. Forty 9:00 p.m.: Unfortunately [facility] is not working, have tried multiple ways to remedy this. IT is going to have to work on this. Have updated patient's RN, she is in agreement to send to [place]. Vital Signs Vital signs: Initial Vital Signs Temperature 97.8 F 10/21/24 11:23 Temperature Source Temporal Artery Scan 10/21/24 11:23 Respiratory Rate 20 10/21/24 11:23 Vital Signs Temperature 97.8 F 10/21/24 11:23 Respiratory Rate 20 10/21/24 11:23 Temperature 97.8 F 10/21/24 11:23 Respiratory Rate 20 10/21/24 11:23 Pulse Oximetry 92 10/21/24 11:34 Medications Administered Medications: Discontinued Medications Generic Name Dose Route Start Last Admin Trade Name Frerobert PRN Reason Stop Dose Admin Midazolam HCl 4 mg 10/21/24 12:31 10/21/24 12:52 Midazolam Hcl 1 Mg/Ml Inj NOSTRIL-B 10/21/24 12:32 4 mg ONCE ONE Administration Oxycodone HCl 2.5 mg 10/21/24 11:33 10/21/24 11:50 Oxycodone 1 Mg/Ml Oral Soln PO 10/21/24 11:34 2.5 mg ONCE ONE Administration Medical Decision Making Medical Records Medical records reviewed: Yes I reviewed the patient's medical records Medical records narrative: Patient had a negative left ankle x-ray; pelvis and left hip showed or if to the left femoral neck with 3 cannulated lag screws, moderate diffuse osteopenia noted, overall impression is no acute osseous injuries or abnormalities noted. Left knee x-ray showed small joint effusion. Left foot showed no acute osseous injuries or abnormalities. 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 Lab Data Lab results reviewed: Yes I reviewed the patient's lab results Labs: Lab Results 10/21/24 Range/Units 12:09 WBC 8.39 (4.50-11.00) K/uL RBC 4.16 (4.00-5.20) m/uL Hgb 11.8 L (12.0-16.0) gm/dL Hct 36.5 (33.0-51.0) % MCV 88 (80-100) fL MCH 28 (26-34) pg MCHC 32 (32-36) gm/dL RDW Coeff of Bertin 13.7 (11.5-15.5) % Plt Count 133 L (140-440) K/uL Neut % (Auto) 86.0 H (42.0-72.0) % Lymph % (Auto) 5.6 L (20-44) % Hardin % (Auto) 6.8 (0.0-11.0) % Eos % (Auto) 0.6 (0.0-7.0) % Baso % (Auto) 0.2 (0.0-3.0) % Neut # (Auto) 7.20 H (1.7-7.0) K/uL Lymph # (Auto) 0.50 L (0.90-2.90) K/uL Hardin # (Auto) 0.60 (0.00-0.90) K/UL Eos # (Auto) 0.05 (0.00-0.50) K/uL Baso # (Auto) 0.02 (0.00-0.30) K/uL Abs Immat Gran (auto) 0.07 (0.00-0.30) K/uL Imm/Tot Granulo (auto) 0.8 % INR 1.00 (0.91-1.10) APTT 24 (23-33) Seconds D-Dimer Quant (PE/DVT) 2.87 H (0.00-0.50) ug/ml Sodium 138 (135-149) mmol/L Potassium 4.6 (3.6-5.1) mmol/L Chloride 109 (96-114) mmol/L Carbon Dioxide 20 (20-32) mmol/L Anion Gap 9 (7-15) mEq/L BUN 39 H (7-30) mg/dL Creatinine 1.0 (0.5-1.5) mg/dL Estimated Creat Clear 33.54 Estimated GFR 56 ml/min Glucose 138 H (60-115) mg/dL Calcium 9.7 (8.4-10.6) mg/dL Total Bilirubin 0.5 (0.1-1.5) mg/dL AST 59 H (12-35) U/L ALT 35 (4-35) U/L Alkaline Phosphatase 97 (40-150) U/L Total Protein 6.5 (6.0-8.3) g/dL Albumin 3.7 (3.3-5.0) g/dL Imaging Data XR left tib fib: Attestation: I have reviewed the pertinent imaging results. My impression: Did visualize x-rays myself, do not appreciate any acute fracture. Await Radiology over-read. Radiologist's impression: Patient: TITA NORTH Facility:?[facility] Patient ID:?[id number] Site Patient ID:?[id number]. Site :?[id number] Study:?XRay-Extremity Left TIB/FIB-10/21/2024 11:53:20 AM Ordering Physician:Rohan Dupont Final Report: Indication: Bruising, pain Technique: Left tibia/fibula extremity radiographs, two views Comparison: Knee radiographs 10/18/2024 Findings: Bones: No acute fracture or dislocation. Remote fracture deformity of the patella. Severe lateral and patellofemoral compartment osteoarthritis. Soft tissues: Unremarkable. Impression: No sign of acute injury. Dictated by Donya Brownlee MD @ 10/21/2024 12:03:39 PM (Electronic Signature) Venous US: Attestation: I have reviewed the pertinent imaging results. Radiologist's impression: Patient: TITA NORTH Facility:?[facility] Patient ID:?[id number] Site Patient ID:?[id number]. Site :?[id number] Study:?US-Extremity Left US LEV LEFT-10/21/2024 1:13:28 PM Ordering Physician:Rohan Dupont Final Report: INDICATION: Left leg pain and bruising. TECHNIQUE: Ultrasound venous duplex lower left extremity. Compression venous exam was performed using hensley-scale, color Doppler, and spectral Doppler analysis. COMPARISON: None. FINDINGS: Deep veins: Sonographic imaging demonstrates the left common femoral, deep femoral, superficial femoral, popliteal, posterior tibial and the contralateral right common femoral veins to be fully compressible with normal color Doppler blood flow. Superficial veins: Greater saphenous vein is fully compressible. IMPRESSION: No sign of deep venous thrombosis. Dictated by Kade Bolden MD @ 10/21/2024 1:26:18 PM (Electronic Signature) Discharge Plan Discharge Clinical Impression: Traumatic ecchymosis of left lower leg Patient Disposition: Home w/ Parent or Adult Condition: Stable Instructions: Ecchymosis (ED) Additional Instructions: Follow up appointment is scheduled at the [facility] on 10/27 with a 10:30am appointment time. Please check in at 10:20am. If you have any questions or need to reschedule, please call [phone]. [facility] [address] [place] [address] Keep a clinic appointment with primary care provider tomorrow. Will need to get further pain management from them if this is working. Will use oxycodone 5 mg 3 times a day. Stay on Tylenol 1000 mg 3 times a day baseline. Can use ibuprofen per standing order directions. Would recommend continuing to elevate and ice. If she is not improving over the next week, not ambulating independently and back to baseline within the next week, keep orthopedic appointment on the . Activity Level: Activity as Tolerated Prescriptions: New oxycodone 5 mg tablet 5 mg PO TID Qty: 4 0RF No Action quetiapine 100 mg tablet 100 mg PO QAM Linzess 145 mcg capsule 145 mcg PO QAM calcium carbonate-vitamin D3 [Calcium 600 + D(3)] 600 mg-10 mcg (400 unit) tablet 1 tab PO QAM bisacodyl [OneLAX Bisacodyl] 10 mg suppository 10 mg WI DAILY PRN (Reason: constipation) polyethylene glycol 3350 [Gavilax] 17 gram/dose powder 17 g PO BID buspirone 15 mg tablet 15 mg PO BID escitalopram oxalate [Lexapro] 20 mg tablet 20 mg PO DAILY levothyroxine 25 mcg capsule 25 mcg PO DAILY potassium chloride [K-Tab] 10 mEq tablet extended release 10 meq PO BID quetiapine [Seroquel] 300 mg tablet 300 mg PO QHS Follow Up/Referrals: Dat Smith MD [Primary Care Provider] - Stand [facility]
[2024-10-21 11:23] VITALS: RESP 20; TEMP 36.6; BMI 22.6
--- OUTSIDE RECORDS SUMMARY | 2024-10-21 11:32 | XMS_ITS | Clinical Summary ---
Author Organization [employer] [facility] Address [place], [place] [address] Care Team Providers Care Ext Js Developer Name Role Phone Dat Smith MD Primary Care Provider Thomas Mills MD Unavailable Basim Carias Unavailable [phone] Allergies No known active allergies Medications [...] mL suspensionIndicati ons:Constipation, unspecified constipation type On 3rd without BM give 30 mL of Milk [...] Encounters Date Type Department Care Team Description 10/21/2024 Telephone [facility] [address] [place] [address] Dat Smith MD Appointment Request (Post hospital - pcp ) 10/18/2024 Orders Only [facility] Scanner 1 scan: (1-Ord) [facility], XR KNEE LT 2V, 10/18/2024 10/18/2024 Orders Only [facility] Scanner 1 scan: (1-Ord) [facility], XR LT HIP, 10/18/2024 10/18/2024 Orders Only [facility] Scanner 1 scan: (1-Ord) [facility], XR FOOT LT MIN 3V, 10/18/2024 07/28/2024 Refill [facility] [address] [place] [address] Dat Smith MD Refill Request 07/27/2024 Refill [facility] [address] [place] [address] Dat Smith MD Refill Request (Omeprazole) from Last 3 Months Immunizations Name Administration Dates Next Due AMB Influenza, IIV3 (Age >=3 years)(Flu Clinic Only) 06/16/2013,07/14/2012,07/25/2011,2009,08/20/2008 Amb Influenza, Inact (High-d ose) (Flu Clinic Only) 07/08/2014 COVID-19 vaccine (Moderna 100mcg/0.5mL) PF, MDV 11/04/2020,10/07/2020 COVID-19 vaccine (GreenPocket-Bio NTech 30mcg/0.3mL) 12YO+ BIVALENT PF, MDV 09/03/2022 COVID-19 vaccine (Pfizer-Bio NTech 30mcg/0.3mL) 12YO+ KALEE-SUCROSE PF, MDV 03/29/2022 COVID-19 vaccine (GreenPocket-Bio NTech 30mcg/0.3mL) PF, MDV 08/31/2021 Influenza, High-dose [...] on file Legal Sex Female 6:47 AM CLIENT RESOURCE SPECIALIST Gender Identity Not on file Sexual Orientation Not on file Obstetrics History Last Filed Vital Signs Vital Sign Reading Time Taken Comments Blood Pressure 108/78 02/08/2012 1:38 PM CDT Pulse 95 04/04/2018 11:26 AM CDT Temperature 36.6 C (97.8 F) 09/04/2017 1:21 PM CLIENT RESOURCE SPECIALIST Respiratory Rate 18 03/17/2013 2:08 PM CDT Oxygen Saturation 91% 04/04/2018 11:26 AM CDT Inhaled Oxygen Concentration - - Weight 46.7 kg (103 lb) 04/25/2023 1:42 PM CDT h ome weight Height 147.3 cm (4' 10) 04/25/2023 1:42 PM CDT home report Body Mass Index 21.53 04/25/2023 1:42 PM CDT Plan of Treatment Upcoming Encounters Date Type Department Care Team (Late st Contact Info) Description 10/22/2024 10:50 AM CLIENT RESOURCE SPECIALIST Office Visit [facility] [address] [place] [address] Donnell Ruvalcaba MD [address] [place] [address] Health Maintenance Due Date Last Done Comments [...] for age 50+ Completed 05/22/2023, 03/23/2015, 02/02/2009 Procedures Procedure Name Priority Date/Time Associated Diagnosis Comments SCAN-RADIOLOGY REPORT 10/18/2024 12:00 AM CLIENT RESOURCE SPECIALIST SCAN-RADIOLOGY REPORT 10/18/2024 12:00 AM CLIENT RESOURCE SPECIALIST SCAN-RADIOLOGY REPORT 10/18/2024 12:00 AM CLIENT RESOURCE SPECIALIST from Last 3 Months Results * SCAN-RADIOLOGY REPORT (10/18/2024 12:00 AM CLIENT RESOURCE SPECIALIST) Only the most recent of3 resultswithin the time period is included. Anatomical Region Laterality Modality Other us Scanner OTHER Final Result from Last 3 Months Insurance MEDICARE PB ONLY MEDICAID MEDICARE PART B HB ONLY MEDICARE PART A HB ONLY MEDICAID MEDICARE PPS Advance Directives Documents on File Type Date Recorded Patient Parcel Post Weigher Expl anation Treatment Guidelines 11/29/2022 Treatment Guidelines 12/06/2021 Treatment Guidelines 11/19/2020 Healthcare Directive 12/08/2018 10:31 AM DN R/DNI, [place] DEPARTMENT OF HUMAN SERVICES, 11/19/18 Treatment Guidelines 11/28/2018 11:25 AM D NR/DNI, [place] DEPARTMENT OF HUMAN SERVICES, 11/21/18 Healthcare Directive 11/22/2017 10:20 AM D NR-DNI, [place] DEPARTMENT OF HUMAN SERVICES, 11/19/17 Healthcare Directive 12/03/2016 2:53 PM DN R/DNI [place] DEPT OF HUMAN SERVICES, 11/19/16 Healthcare Directive 11/30/2016 3:46 PM [facility], 11/23/2016 Healthcare Directive 12/15/2015 3:30 PM [facility] DNR/DNI ORDER, [facility], [facility], 11/20/2015 Healthcare Directive 12/15/2015 3:29 PM DNR /DNI, [facility], 11/17/2015 Healthcare Directive 12/09/2014 3:18 PM [facility] CS RESUSCITATION GUIDELINES, 11/24/14 Treatment Guidelines 11/19/2014 4:00 PM DN R-DNI, [place] DEPARTMENT OF HUMAN SERVICES, 11/19/14 Care Teams Ext Js Developer Relationship Specialty Start Date End Date Dat Smith MD [address] [place] [id number] PCP - General 01/24/06 Thomas Mills MD [address] , [address] [place] [address] Psychology 02/06/11 Basim Carias [address] [place] [id number] Improvement Spec 02/08/12
[2024-10-21 11:34] VITALS: O2SAT 92
[2024-10-21] MEDS: OXYCODONE 1 MG/ML ORAL SOLN 2.5 MG PO (11:50)
[2024-10-21 12:27] LABS: Basophils Absolute Auto 0.02 K/uL (0.00-0.30); Basophils Percent Auto 0.2 % (0.0-3.0); Eosinophils Absolute Auto 0.05 K/uL (0.00-0.50); Eosinophils Percent Auto 0.6 % (0.0-7.0); Hematocrit 36.5 % (33.0-51.0); Hemoglobin* 11.8 gm/dL (12.0-16.0); Immature Granulocytes Abs Auto 0.07 K/uL (0.00-0.30); Immature Granulocytes Pct Auto 0.8 %; Lymphocytes Percent Auto 5.6 % (20-44); Mean Corpuscular HGB Conc 32 gm/dL (32-36); Mean Corpuscular Hemoglobin 28 pg (26-34); Mean Corpuscular Volume 88 fL (80-100); Monocytes Percent Auto 6.8 % (0.0-11.0); Platelet Count* 133 K/uL (140-440); RDW Coefficient of Variation % 13.7 % (11.5-15.5); Red Blood Count 4.16 m/uL (4.00-5.20); White Blood Count* 8.39 K/uL (4.50-11.00)
[2024-10-21 12:33] LABS: Slide Review Reflex No
[2024-10-21 12:44] LABS: Albumin* 3.7 g/dL (3.3-5.0)
[2024-10-21 12:45] LABS: Chloride* 109 mmol/L (96-114); Potassium* 4.6 mmol/L (3.6-5.1); Sodium* 138 mmol/L (135-149)
[2024-10-21 12:47] LABS: Anion Gap 9 mEq/L (7-15); Aspartate Amino Transferase* 59 U/L (12-35); Bilirubin Total* 0.5 mg/dL (0.1-1.5); Carbon Dioxide* 20 mmol/L (20-32); Est. Creatinine Clearance* 33.54; Estimated Glomerular Filt Rate 56 ml/min; Prothrombin Time 13.8 Seconds
[2024-10-21 12:48] LABS: Alanine Aminotransferase* 35 U/L (4-35); Alkaline Phosphatase* 97 U/L (40-150); Blood Urea Nitrogen* 39 mg/dL (7-30); Calcium* 9.7 mg/dL (8.4-10.6); Glucose* 138 mg/dL (60-115); Partial Thromboplastin Time* 24 Seconds (23-33); Total Protein* 6.5 g/dL (6.0-8.3)
[2024-10-21 12:50] LABS: D Dimer Quantitative* 2.87 ug/ml (0.00-0.50)
[2024-10-21] MEDS: MIDAZOLAM HCL 1 MG/ML inj 4 MG NOSTRIL-B (12:52)
== END 2024-10-21 14:13 | disposition home or self-care (01) ==
PROVIDERS: Emergency Provider Family Medicine; PCP Family Medicine
DX: S80.12XA Contusion of left lower leg, initial encounter (principal)
CPT/HCPCS: 36415; 73590; 80053; 85025; 85379; 85610; 85730; 93971; 94761; 99284; 99285; A9270; J2250

== ENCOUNTER 2024-10-23 13:09 | Inpatient (IN) | payer MEDICARE, MEDICAID, SELFPAY ==
[2024-10-23] VITALS (17 sets, daily range): BP systolic 103–121; BP diastolic 71–88; PULSE 108–125; RESP 15–40; TEMP 35.8; O2SAT 84–93; BMI 21.2
--- NOTE | 2024-10-23 13:39 | ED.GENADULT ---
HPI - General Adult General Chief complaint: Shortness of Breath/Dyspnea Stated complaint: distended abd/gurgly breathing Time Seen by Provider: 10/23/24 13:23 History of Present Illness HPI narrative: patient is having trouble breathing and sounds gurgle. loves to eat and poor appetite lately . rapid breathing is new. active and changed over the past 2 days . 84-year-old woman presenting to the emergency department with concern of increased abdominal distention and respiratory congestion noting ?gurgling? breathing. A video as presented by staff who knows [place] well, showing shortly after waking this morning some apparent difficulty breathing though it looks to be is if she was in pain. 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 Historically quite active sustained a patellar fracture April of last year but apparently was still getting about until recently injured her left lower leg. Last seen in this department 2 or 3 days ago and noted to have what was suspected to be a traumatic ecchymoses of the left lower leg. Since then she has also had little bruising on the right foot and noted here in the left 3rd finger. Looks like underlying history also of constipation and is given Linzess. Was initiated on opiate pain medication recently regularly scheduled. Staff notes that she is more reluctant to sit up so they been laying her back some. Instill is not her usual level of active ambulatory. Poor solid and liquid intake lately as well when normally eats very well. There was a very small bowel movement of any yesterday. 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 milk of magnesium, bisacodyl, acetaminophen Oxycodone recently Related Data Home Medications ?Medication ?Instructions ?Recorded ?Confirmed buspirone 15 mg tablet 15 mg PO BID 04/30/23 10/23/24 escitalopram oxalate 20 mg tablet 20 mg PO DAILY 04/30/23 10/23/24 (Lexapro) levothyroxine 25 mcg capsule 25 mcg PO DAILY 04/30/23 10/23/24 quetiapine 300 mg tablet (Seroquel) 300 mg PO QHS 04/30/23 10/23/24 bisacodyl 10 mg rectal suppository 10 mg WA Q72H PRN constipation 07/21/24 10/23/24 (OneLAX Bisacodyl) calcium 600 mg (as 1 tab PO QAM 07/21/24 10/23/24 carbonate)-vitamin D3 10 mcg (400 unit) tablet (Calcium 600 + D(3)) linaclotide 145 mcg capsule 145 mcg PO QAM 07/21/24 10/23/24 (Linzess) polyethylene glycol 3350 17 17 g PO BID 07/21/24 10/23/24 gram/dose oral powder (Gavilax) acetaminophen 325 mg tablet 325 mg PO Q4H PRN 10/23/24 10/23/24 ibuprofen 200 mg tablet 600 mg PO QID 10/23/24 10/23/24 magnesium hydroxide 400 mg/5 mL 30 ml PO Q72H PRN 10/23/24 10/23/24 oral suspension (Her Milk of Magnesia) oxycodone 5 mg tablet 5 mg PO DIRECTED pain 10/23/24 10/23/24 potassium chloride 10 mEq 20 meq PO DAILY 10/23/24 10/23/24 tablet,extended release(part/cryst) quetiapine 100 mg tablet 100 mg PO QAM 10/23/24 10/23/24 Allergies Allergy/AdvReac Type Severity Reaction Status Date / Time No Known Drug Allergies Allergy Verified 10/23/24 13:35 Review of Systems Status of ROS: Reports: 6 or more systems reviewed and unremarkable except as noted in History and below [facility] Medical History (Updated 10/25/24 @ 18:35 by Dung Catherine MD) Constipation ?K59.00 - Constipation, unspecified (ICD-10) Urinary incontinence ?R32 - Unspecified urinary incontinence (ICD-10) Unspecified hypothyroidism ?E03.9 - Hypothyroidism, unspecified (ICD-10) Unspecified intellectual disabilities ?F79 - Unspecified intellectual disabilities (ICD-10) DNR (do not resuscitate) ?Z66 - Do not resuscitate (ICD-10) 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 Her legal personal financial representative is Danica Starr, telephone [phone]. After hours telephone [phone]. Patient has DNR DNI resuscitation status. What is your current living situation?: I presently have a place to live Problems where you live: no known problems Problems where you live details: n In the past 12 months, utilities in danger of being shut off: unable to answer In past 12 months, lack of transportation kept you from medical appts, meetings, work, or getting things needed for daily living: unable to answer In the past 12 mos, have been you worried that your food would run out before you had money to buy more?: unable to answer In the past 12 mos, the food you bought just didn't last and you didn't have money to buy more?: unable to answer Highest level of school completed/degree received: never attended/kindergarten only Smoking Status: Never smoker Do you use any of these nicotine containing products: None How often do you have a drink containing alcohol: never How often do you have six or more drinks on one occasion: Never AUDIT-C Alcohol total score: 0 Non-prescribed substance use: denies use Caffeine: No How often does anyone, including family, friends and others, physically hurt you: unable to answer How often does anyone, including family, friends and others, insult or talk down to you: unable to answer How often does anyone, including family, friends and others, threaten you with harm: unable to answer How often does anyone, including family, friends and others, scream or curse at you: unable to answer Exam Narrative: Exam Narrative: Lying in reclined chair. Congested breathing is audible. Mildly labored in her breathing most splinting. Abdomen does appear to be full. I do not hear bowel sounds. She has not actually tympanitic. Generally mildly tense. Does not appear to have significant pain on palpation of the abdomen. Bruising noted in the left lower outer leg and over the dorsum of the toes of the right foot laterally and then on the distal aspect of the left 3rd finger. Lungs are generally congested and she is tachypneic is noted. Mostly edentulous. Oropharynx is a little sticky/dry. Heart is tachycardic appears to be in a regular rhythm. Is nonverbal as noted. Const: Vital Signs, click to edit/add: Vital Signs - 24 hr 10/23/24 13:24 10/23/24 13:40 10/23/24 13:55 Temperature 96.5 F L Pulse Rate 122 H Pulse Rate [Pulse Oximeter] 125 H Respiratory Rate 40 H Blood Pressure Blood Pressure [Ri ght Upper Arm] 118/73 Pulse Oximetry 84 L 87 L 88 Oxygen Delivery Me thod Room Air Room Air Oxygen Flow Rate 10/23/24 14:00 10/23/24 14:30 10/23/24 14:32 Temperature Pulse Rate 125 H 113 H 112 H Pulse Rate [Pulse Oximeter] Respiratory Rate 19 19 Blood Pressure 103/71 Blood Pressure [Ri ght Upper Arm] Pulse Oximetry 88 87 L 88 Oxygen Delivery Me thod Room Air Room Air Room Air Oxygen Flow Rate 10/23/24 14:38 10/23/24 15:00 10/23/24 15:01 Temperature Pulse Rate 115 H 114 H Pulse Rate [Pulse Oximeter] Respiratory Rate 20 Blood Pressure 107/78 Blood Pressure [Ri ght Upper Arm] Pulse Oximetry 92 91 91 Oxygen Delivery Me thod OxyMask Blow By OxyMask OxyMask Oxygen Flow Rate 4 4 4 10/23/24 15:32 10/23/24 16:01 10/23/24 16:15 Temperature Pulse Rate 108 H 118 H Pulse Rate [Pulse Oximeter] Respiratory Rate 15 21 Blood Pressure 112/84 111/88 Blood Pressure [Ri ght Upper Arm] Pulse Oximetry 93 91 Oxygen Delivery Me thod OxyMask OxyMask OxyMask Oxygen Flow Rate 4 4 4 10/23/24 16:32 Temperature Pulse Rate 115 H Pulse Rate [Pulse Oximeter] Respiratory Rate 20 Blood Pressure 105/76 Blood Pressure [Ri ght Upper Arm] Pulse Oximetry 90 Oxygen Delivery Me thod OxyMask Oxygen Flow Rate 4 Documenting provider has reviewed patient's vital signs: yes Course Vital Signs Vital signs: Initial Vital Signs Temperature 96.5 F L 10/23/24 13:24 Temperature Source Temporal Artery Scan 10/23/24 13:24 Pulse Rate 125 H 10/23/24 13:24 Respiratory Rate 40 H 10/23/24 13:24 Blood Pressure 118/73 10/23/24 13:24 Blood Pressure Mean 88 10/23/24 13:24 Blood Pressure Position Sitting 10/23/24 13:24 Pulse Oximetry 84 L 10/23/24 13:24 Oxygen Delivery Method Room Air 10/23/24 13:24 Vital Signs Temperature 96.5 F L 10/23/24 13:24 Pulse Rate 125 H 10/23/24 13:24 Respiratory Rate 40 H 10/23/24 13:24 Blood Pressure 118/73 10/23/24 13:24 Pulse Oximetry 84 L 10/23/24 13:24 Oxygen Delivery Method Room Air 10/23/24 13:24 Temperature 98.9 F 10/24/24 23:04 Pulse Rate 118 H 10/24/24 23:08 Respiratory Rate 24 10/25/24 15:00 Blood Pressure 150/90 H 10/24/24 19:00 Pulse Oximetry 94 10/24/24 23:08 Oxygen Delivery Method Room Air 10/24/24 23:08 Oxygen Flow Rate 0 10/25/24 07:00 Medications Administered Medications: Generic Name Dose Route Start Last Admin Trade Name Freq PRN Reason Stop Dose Admin Bisacodyl 10 mg 10/24/24 16:32 10/24/24 17:09 Bisacodyl 10 Mg Supp.Rect WA 10 mg Q72H PRN Administration constipation Buspirone HCl 15 mg 10/23/24 21:00 10/25/24 09:33 Buspirone 10 Mg Tablet PO 15 mg BID LAKISHA Administration Enoxaparin Sodium 30 mg 10/23/24 21:00 10/24/24 21:55 Enoxaparin 30 Mg/0.3ml Inj SUBCUT 30 mg HS LAKISHA Administration Escitalopram Oxalate 20 mg 10/24/24 09:00 10/25/24 09:33 Escitalopram 10 Mg Tablet PO 20 mg DAILY LAKISHA Administration Guaifenesin 1,200 mg 10/24/24 21:00 10/25/24 09:33 Guaifenesin 600 Mg Tab.Er.12h PO 1,200 mg BID LAKISHA Administration Ceftriaxone Sodium 1 gm/ 100 mls @ 200 mls/hr 10/24/24 16:00 10/25/24 16:45 Sodium Chloride IVPB Infused Q24H LAKISHA Infusion Azithromycin 500 mg/ Sodium 255 mls @ 255 mls/hr 10/24/24 18:00 10/25/24 17:58 Chloride IVPB 255 mls/hr Q24H LAKISHA Administration Dextrose 1,000 mls @ 200 mls/hr 10/25/24 17:00 10/25/24 18:10 5 % Dextrose 1000 Ml IV 200 mls/hr .Q5H LAKISHA Administration Levothyroxine Sodium 25 mcg 10/24/24 07:00 10/25/24 06:20 Levothyroxine 25 Mcg Tablet PO 25 mcg DAILY@0700 LAKISHA Administration Lorazepam 0.5 mg 10/24/24 15:18 10/25/24 09:56 Lorazepam 2 Mg/Ml Inj IVP 0.5 mg Q6H PRN Administration Agitation Morphine Sulfate 2 mg 10/24/24 15:18 10/25/24 15:40 Morphine 2 Mg/Ml Inj IVP 2 mg Q2H PRN Administration air hunger Linaclotide [Linzess 0 mcg 10/24/24 07:00 10/25/24 06:20 ] 145 Mcg Capsule PO 145 mcg DAILY@0700 LAKISHA Administration Polyethylene Glycol 17 gm 10/23/24 21:00 10/25/24 09:33 Polyethylene Glycol 3350 17 Gm Pack PO 17 gm BID LAKISHA Administration Potassium Chloride 20 meq 10/24/24 09:00 10/25/24 09:34 Potassium Chloride 10 Meq Capsule Er PO 20 meq DAILY LAKISHA Administration Quetiapine Fumarate 300 mg 10/23/24 21:00 10/24/24 21:55 Quetiapine 100 Mg Tablet PO 300 mg HS LAKISHA Administration Quetiapine Fumarate 100 mg 10/24/24 09:00 10/25/24 09:34 Quetiapine 100 Mg Tablet PO 100 mg QAM LAKISHA Administration Sodium Chloride 5 ml 10/23/24 21:00 10/25/24 09:34 Sodium Chloride 0.9 % (Flush) 10 Ml Syringe IVF 5 ml BID LAKISHA Administration Discontinued Medications Generic Name Dose Route Start Last Admin Trade Name Freq PRN Reason Stop Dose Admin Albuterol/Ipratropium 1 neb 10/23/24 18:00 10/25/24 12:59 Iprat-Albut 0.5-2.5 Mg/3 Ml Neb IH 10/25/24 17:59 Not Given Q6H LAKISHA Sodium Chloride 500 mls @ 500 mls/hr 10/23/24 13:53 10/23/24 16:00 0.9 % Sodium Chloride 500 Ml IV 10/23/24 14:52 Infused .Q1H ONE Infusion Ceftriaxone Sodium 1 gm/ 100 mls @ 200 mls/hr 10/23/24 16:13 10/23/24 20:33 Sodium Chloride IVPB 10/23/24 16:14 Infused ONCE ONE Infusion Azithromycin 500 mg/ Sodium 255 mls @ 255 mls/hr 10/23/24 16:13 10/23/24 20:33 Chloride IVPB 10/23/24 16:14 Infused ONCE ONE Infusion Sodium Chloride 500 mls @ 500 mls/hr 10/23/24 17:56 10/23/24 20:33 0.9 % Sodium Chloride 500 Ml IV 10/23/24 18:55 Infused .Q1H ONE Infusion Sodium Chloride 1,000 mls @ 125 mls/hr 10/23/24 17:56 10/24/24 17:29 0.9 % Sodium Chloride 1000 Ml IV 10/24/24 09:55 Infused .Q8H LAKISHA Infusion Lorazepam 0.5 mg 10/23/24 13:55 10/23/24 14:24 Lorazepam 2 Mg/Ml Inj IVP 10/23/24 13:56 0.5 mg ONCE ONE Administration Lorazepam 0.25 mg 10/23/24 15:34 10/23/24 15:43 Lorazepam 2 Mg/Ml Inj IVP 10/23/24 15:35 0.25 mg ONCE ONE Administration Medical Decision Making MDM Narrative Medical decision making narrative: My initial impression is that has had some degree of bowel pain secondary to constipation ileus small-bowel obstruction. May have aspiration pneumonia. Would also check considering community prevalence for influenza or COVID are even RSV. Is going to be difficult to give cares as tends not to tolerate things around her face and tends to pick and grabbed at cares/care providers. Respiratory therapy here to assist and remove Katie into a bed less reclined and seated upright somewhat more oxygen saturations improve a little. Is able to be placed on OxyMask. Did give dose of IV lorazepam and does seem sensitive to it. Does allow for various cares. Labs notable for markedly elevated CRP and creatinine of 1.5. Normal white count. Independent review of CT imaging shows failure contrast bolus but also rather distended bladder. I suppose this could be contributing to her pain. May have been caused partly by recent medication changes, opiates. Left lower lung consolidation/infiltrate also evident. INDICATION: Flank pain. Chest pain. Dysuria. TECHNIQUE: CT chest, abdomen and pelvis acquired without contrast. IV contrast reportedly injected, but no contrast is visualized within the vessels. COMPARISON: None. FINDINGS: Evaluation limited by motion artifact. CHEST: Thyroid: Unremarkable. Cardiovascular structures: Heart size is normal. Calcification of the LAD. Thoracic aorta and main pulmonary artery are normal in caliber. Mediastinum and jia: No mass or adenopathy. Lungs and pleura: Centrilobular nodularity throughout the left lung with patchy consolidation at the left lower lobe. Scattered 4 millimeter nodules in the right lower lobe Chest wall and axilla: Calcifications in the bilateral breasts. Bones: Age indeterminate compression fracture of T6 with 90 percent height loss and 3 millimeters of retropulsion. ABDOMEN AND PELVIS: Liver: Unremarkable. Gallbladder and bile ducts: Cholelithiasis without evidence of cholecystitis. Pancreas: Unremarkable. Spleen: Unremarkable. Adrenal glands: Unremarkable. Kidneys: Right renal cyst. GI tract: No obstruction. Vascular structures: Mild aortoiliac atherosclerosis. Lymph nodes: Unremarkable. Peritoneum/Retroperitoneum/Abdominal Wall: Unremarkable. Pelvic Organs: Right ovarian cystic lesion measuring 2.7 x 2.9 x 3 centimeters (2/195, 4/173). Bones and superficial soft tissues: Screw fixation of the left femur. IMPRESSION: Centrilobular nodularity throughout the left lung with patchy consolidation in the left lower lobe. This is concerning for pneumonia/infectious bronchiolitis. Aspiration is also in the differential, but less likely considering distribution. Age-indeterminate compression deformity of T6 with 90 percent height loss. Right ovarian cystic lesion. Consider further evaluation with nonemergent pelvic ultrasound. Discussed all findings with staff, including ovarian lesion. There was a question of some perianal bruising which is visualized during Werner placement. About a nickel sized area of darkened skin to the left perianal tissue Initiating antibiotics. Discussed with hospitalist for admission for pneumonia and respiratory failure. Medical Records Medical records reviewed: Yes I reviewed the patient's medical records Lab Data Lab results reviewed: Yes I reviewed the patient's lab results Labs: Lab Results 10/23/24 10/23/24 10/23/24 Range/Units 14:05 15:45 16:10 WBC 6.16 (4.50-11.00) K/uL RBC 4.09 (4.00-5.20) m/uL Hgb 11.5 L (12.0-16.0) gm/dL Hct 35.5 (33.0-51.0) % MCV 87 (80-100) fL MCH 28 (26-34) pg MCHC 32 (32-36) gm/dL RDW Coeff of Bertin 14.5 (11.5-15.5) % Plt Count 171 (140-440) K/uL Neut % (Auto) 82.3 H (42.0-72.0) % Lymph % (Auto) 7.3 L (20-44) % [place] % (Auto) 7.5 (0.0-11.0) % Eos % (Auto) 2.1 (0.0-7.0) % Baso % (Auto) 0.3 (0.0-3.0) % Neut # (Auto) 5.10 (1.7-7.0) K/uL Lymph # (Auto) 0.40 L (0.90-2.90) K/uL [place] # (Auto) 0.50 (0.00-0.90) K/UL Eos # (Auto) 0.13 (0.00-0.50) K/uL Baso # (Auto) 0.02 (0.00-0.30) K/uL Abs Immat Gran (auto) 0.03 (0.00-0.30) K/uL Imm/Tot Granulo (auto) 0.5 % INR 1.08 (0.91-1.10) APTT 34 H (23-33) Seconds VBG pH 7.357 (7.32-7.43) VBG pCO2 37 L (40-50) mmHG VBG pO2 36.7 (25-47) mmHG VBG HCO3 21 (21-28) mmol/L Sodium 145 (135-149) mmol/L Potassium 4.1 (3.6-5.1) mmol/L Chloride 114 (96-114) mmol/L Carbon Dioxide 19 L (20-32) mmol/L Anion Gap 12 (7-15) mEq/L BUN 62 H (7-30) mg/dL Creatinine 1.5 (0.5-1.5) mg/dL Estimated Creat Clear 20.29 Estimated GFR 35 ml/min Glucose 126 H (60-115) mg/dL Lactate 1.8 (0.5-1.9) mmol/L Calcium 9.3 (8.4-10.6) mg/dL Total Bilirubin 0.6 (0.1-1.5) mg/dL Direct Bilirubin 0.3 (0.0-0.5) mg/dL AST 99 H (12-35) U/L ALT 57 H (4-35) U/L Alkaline Phosphatase 103 (40-150) U/L Troponin I < 0.01 L (0.01-0.04) ng/mL C-Reactive Protein 43.3 H (0.5-1.0) mg/dL NT-Pro-B Natriuret Pep 522 pg/mL Total Protein 6.6 (6.0-8.3) g/dL Albumin 3.5 (3.3-5.0) g/dL Urine Color Yellow (Yellow) Urine Appearance Clear (Clear) Urine pH 5.5 (5.0-8.5) Ur Specific [place] 1.015 (1.000-1.030) Urine Protein Negative (Negative) Urine Glucose (UA) Negative (Negative) Urine Ketones Negative (Negative) Urine Blood Trace-intact A (Negative) Urine Nitrite Negative (Negative) Urine Bilirubin Negative (Negative) Urine Urobilinogen 0.2 (0.2-1.0) Ur Leukocyte Esterase Negative (Negative) Urine RBC 0-2 (0-2) Urine WBC 0-2 (0-5) Ur Squamous Epith Cells None (None-Few) Urine Bacteria Few A (None) SARS-CoV-2 (PCR) Negative SARS-CoV-2 (Negative) Influenza Type A (PCR) Negative PCR FLU A (Negative) Influenza Type B (PCR) Negative PCR FLU B (Negative) RSV (PCR) Negative PCR RSV (Negative) Lab Acknowledgement Test Added Test Added Discharge Plan Discharge Clinical Impression: Pneumonia, Respiratory failure, Abnormal bruising, Urinary retention, Lesion of right ovary Patient Disposition: Admitted As Observation Condition: Stable
[2024-10-23 14:13] LABS: HCO3 VBG 21 mmol/L (21-28); Lactate* 1.8 mmol/L (0.5-1.9); PCO2 VBG 37 mmHG (40-50); PO2 VBG 36.7 mmHG (25-47); pH VBG 7.357 (7.32-7.43)
[2024-10-23 14:15] LABS: Basophils Absolute Auto 0.02 K/uL (0.00-0.30); Basophils Percent Auto 0.3 % (0.0-3.0); Eosinophils Absolute Auto 0.13 K/uL (0.00-0.50); Eosinophils Percent Auto 2.1 % (0.0-7.0); Hematocrit 35.5 % (33.0-51.0); Hemoglobin* 11.5 gm/dL (12.0-16.0); Immature Granulocytes Abs Auto 0.03 K/uL (0.00-0.30); Immature Granulocytes Pct Auto 0.5 %; Lymphocytes Percent Auto 7.3 % (20-44); Mean Corpuscular HGB Conc 32 gm/dL (32-36); Mean Corpuscular Hemoglobin 28 pg (26-34); Mean Corpuscular Volume 87 fL (80-100); Monocytes Percent Auto 7.5 % (0.0-11.0); Neutrophils Percent Auto 82.3 % (42.0-72.0); Platelet Count* 171 K/uL (140-440); RDW Coefficient of Variation % 14.5 % (11.5-15.5); Red Blood Count 4.09 m/uL (4.00-5.20); White Blood Count* 6.16 K/uL (4.50-11.00)
[2024-10-23 14:16] LABS: Slide Review Reflex No
[2024-10-23] MEDS: LORazepam 2 MG/ML inj 0.5 MG IVP (14:24)
[2024-10-23] MEDS: 0.9 % SODIUM CHLORIDE 500 ML 500 ML IV ×2 (14:24→19:10)
[2024-10-23 14:30] LABS: Chloride* 114 mmol/L (96-114); Potassium* 4.1 mmol/L (3.6-5.1); Sodium* 145 mmol/L (135-149)
[2024-10-23 14:33] LABS: Anion Gap 12 mEq/L (7-15); Carbon Dioxide* 19 mmol/L (20-32); Creatinine* 1.5 mg/dL (0.5-1.5); Est. Creatinine Clearance* 20.29; Estimated Glomerular Filt Rate 35 ml/min
[2024-10-23 14:34] LABS: Blood Urea Nitrogen* 62 mg/dL (7-30); Calcium* 9.3 mg/dL (8.4-10.6); Glucose* 126 mg/dL (60-115)
[2024-10-23 14:54] LABS: PCR FLU A Negative PCR FLU A (Negative); PCR FLU B Negative PCR FLU B (Negative); PCR RSV Negative PCR RSV (Negative); SARS PCR* Negative SARS-CoV-2 (Negative)
[2024-10-23 15:42] LABS: NT Pro B Type NatriureticPept* 522 pg/mL; Troponin I* < 0.01 ng/mL (0.01-0.04)
[2024-10-23] MEDS: LORazepam 2 MG/ML inj 0.25 MG IVP (15:43)
[2024-10-23 16:20] LABS: C Reactive Protein* 43.3 mg/dL (0.5-1.0)
[2024-10-23 16:25] LABS: Appearance Urine Clear (Clear); Bilirubin Urine Negative (Negative); Blood Urine Trace-intact (Negative); Color Urine Yellow (Yellow); Glucose Urine Negative (Negative); Ketones Urine Negative (Negative); Leukocyte Esterase Urine Negative (Negative); Nitrite Urine Negative (Negative); Protein Urine Negative (Negative); Specific Gravity Urine 1.015 (1.000-1.030); Urobilinogen Urine 0.2 (0.2-1.0); pH Urine 5.5 (5.0-8.5)
[2024-10-23 16:35] LABS: INR 1.08 (0.91-1.10); Partial Thromboplastin Time* 34 Seconds (23-33); Prothrombin Time 14.7 Seconds
[2024-10-23] MEDS: cefTRIAXone 1 GM in 0.9 % SODIUM CHLORIDE Mini-bag 100 ML IVPB (16:38)
[2024-10-23 16:53] LABS: Albumin* 3.5 g/dL (3.3-5.0)
[2024-10-23 16:56] LABS: Alanine Aminotransferase* 57 U/L (4-35); Alkaline Phosphatase* 103 U/L (40-150); Aspartate Amino Transferase* 99 U/L (12-35); Bilirubin Direct* 0.3 mg/dL (0.0-0.5); Bilirubin Total* 0.6 mg/dL (0.1-1.5); Total Protein* 6.6 g/dL (6.0-8.3)
[2024-10-23 16:56] LABS: Bacteria Urine Few; RBC Urine 0-2 (0-2); WBC Urine 0-2 (0-5)
--- NOTE | 2024-10-23 17:44 | PM.IMHP1 ---
Hospitalist- H&P: HPI History of Present Illness Date Seen: 10/23/24 Chief complaint: distended abd/gurgly breathing Narrative: Katie Rosario is a 84 year old non-verbal woman with longstanding developmental intellectual disability, phenylketonuria, intermittent explosive disorder, anxiety disorder who presents to our emergency department today accompanied by the senior care staff member, Mariana, who indicates the patient woke up this morning with abdominal discomfort and gurgly breathing. Patient is nonverbal, usually active, rooming about the senior care that she resides in, enjoys eating, enjoys sleeping. This past Saturday, 5 days ago, suddenly was nonweightbearing on left lower extremity. Brought into the emergency department for assessment. Multiple x-rays obtained without cause found. Discharged back to the senior care with p.r.n. analgesics. Shortly after leaving the emergency department staff noticed bruising develop on the dorsal aspect of her left foot and her left leg. There was no witnessed trauma or injury. Continue to be nonweightbearing on the left lower extremity. Had decreased appetite. Hence, brought to the emergency department again this past Saturday for reassessment. Multiple x-rays obtained again and exam. No specific findings. Again discharged back to senior care. Yesterday morning the patient was seen for follow-up in the outpatient clinic setting. Physician there started her on scheduled oxycodone 5 mg t.i.d., with tapering orders over the next 2-3 days. Additionally the patient was started on scheduled ibuprofen 600 mg q.i.d.. This morning patient continues to be nonweightbearing on left lower extremity. Based on patient's facial expressions and behaviors they discerned she was having abdominal discomfort. Her breathing sounded unusual, described as the gurgly. They brought her into the emergency department for assessment and she was found to have tachycardia, tachypnea, hypoxia. CT scan of chest abdomen and pelvis obtained demonstrating left lower lobe pulmonary infiltrate and very distended bladder. Staff in the emergency department started her on IV antibiotics for pneumonia and place urinary catheter for distended bladder. Before placing the bladder patient had already eliminated some of the urine in her bladder, filling up her incontinent product diaper with urine. They placed the urinary catheter in removed an additional 500 mL of urine. In retrospect, patient eats and drinks rather vigorously ordinarily. There was concern that patient may have aspirated last night or this morning. In the emergency department she was offered water to drink and she consumes a water rather vigorously, coughing and sputtering afterward. Otherwise has not had fevers, rigors, diaphoresis over the last several days. Has not had obvious dyspnea, tachypnea, cough either. I speculate about whether not her ability to manage her airway may have been affected by the scheduled oxycodone she was started on yesterday. Additionally, given that she just started the oxycodone and she now has the urinary retention 1 wonders about whether not the oxycodone may have contributed to this as well. Review of Systems Status of ROS: Reports: 10 or more systems reviewed and unremarkable except as noted in History and below PFSH [facility] Medical History Constipation ?K59.00 - Constipation, unspecified (ICD-10) Urinary incontinence ?R32 - Unspecified urinary incontinence (ICD-10) Unspecified hypothyroidism ?E03.9 - Hypothyroidism, unspecified (ICD-10) Unspecified intellectual disabilities ?F79 - Unspecified intellectual disabilities (ICD-10) DNR (do not resuscitate) ?Z66 - Do not resuscitate (ICD-10) Diabetes insipidus ?E23.2 - Diabetes insipidus (ICD-10) Social History Narrative: Lives in the [facility] senior care in [place], [place]. Her legal it sales representative is Danica Starr, telephone [phone]. After hours telephone [phone]. Patient has DNR DNI resuscitation status. Smoking Status: Never smoker Do you use any of these nicotine containing products: None How often do you have a drink containing alcohol: never How often do you have six or more drinks on one occasion: Never AUDIT-C Alcohol total score: 0 Non-prescribed substance use: denies use Caffeine: No Meds Home Medications and Allergies Home Medications ?Medication ?Instructions ?Recorded ?Confirmed ?Type buspirone 15 mg tablet 15 mg PO BID 04/30/23 10/23/24 History escitalopram oxalate 20 mg tablet 20 mg PO DAILY 04/30/23 10/23/24 History (Lexapro) levothyroxine 25 mcg capsule 25 mcg PO DAILY 04/30/23 10/23/24 History quetiapine 300 mg tablet (Seroquel) 300 mg PO QHS 04/30/23 10/23/24 History bisacodyl 10 mg rectal suppository 10 mg MA Q72H PRN constipation 07/21/24 10/23/24 History (OneLAX Bisacodyl) calcium 600 mg (as 1 tab PO QAM 07/21/24 10/23/24 History carbonate)-vitamin D3 10 mcg (400 unit) tablet (Calcium 600 + D(3)) linaclotide 145 mcg capsule 145 mcg PO QAM 07/21/24 10/23/24 History (Linzess) polyethylene glycol 3350 17 17 g PO BID 07/21/24 10/23/24 History gram/dose oral powder (Gavilax) acetaminophen 325 mg tablet 325 mg PO Q4H PRN 10/23/24 10/23/24 History ibuprofen 200 mg tablet 600 mg PO QID 10/23/24 10/23/24 History magnesium hydroxide 400 mg/5 mL 30 ml PO Q72H PRN 10/23/24 10/23/24 History oral suspension (Her Milk of Magnesia) oxycodone 5 mg tablet 5 mg PO DIRECTED pain 10/23/24 10/23/24 History potassium chloride 10 mEq 20 meq PO DAILY 10/23/24 10/23/24 History tablet,extended release(part/cryst) quetiapine 100 mg tablet 100 mg PO QAM 10/23/24 10/23/24 History Allergies Allergy/AdvReac Type Severity Reaction Status Date / Time No Known Drug Allergies Allergy Verified 10/23/24 13:35 Exam Narrative: Exam Narrative: I examine patient 1st in the emergency department and secondly in the hospital floor. In the emergency department she is sound asleep with a OxyMask and receiving oxygen at 4 liters/minute. Oxygen saturations are ranging from 88 to 89%. She is laying flat on the exam table. On the hospital floor, she is awake, does not have the OxyMask in place, OxyMask is sitting on her chest, patient is sitting with head of bed elevated at 60?, room air oxygen saturations are 86-89%. Again she is nonverbal. No meaningful verbal interaction. This is longstanding since childhood. This is not new. External auditory canals are clear and she has cerumen blocking the view of her tympanic membranes. Midline nasal septum normal nasal mucosa. Dentition fair repair. Dry buccal mucosa. Pupils equally round and reactive to light and accommodation. Conjugate gaze. No icterus. Midline trachea. Neck supple. No head neck lymphadenopathy. Scattered rhonchi on auscultation of lungs. Rales in the left base. No wheezing. Chest wall excursions are full. No CVA tenderness. Heart tones with regular rhythm, normal S1-S2 without murmur, gallop, or rub. PMI not laterally displaced. Abdomen with active bowel sounds, soft, nontender. Urethral catheter in place with clear urine. Palpable pulses upper and lower extremities. Capillary refill less than 3 seconds. No peripheral edema. No obvious focal motor neurologic deficits. Const: Vital Signs, click to edit/add: Vital Signs - 24 hr 10/23/24 13:24 10/23/24 13:40 10/23/24 13:55 Temperature 96.5 F L Pulse Rate 122 H Pulse Rate [Pulse Oximeter] 125 H Respiratory Rate 40 H Blood Pressure Blood Pressure [Ri ght Upper Arm] 118/73 Pulse Oximetry 84 L 87 L 88 Oxygen Delivery Me thod Room Air Room Air Oxygen Flow Rate 10/23/24 14:00 10/23/24 14:30 10/23/24 14:32 Temperature Pulse Rate 125 H 113 H 112 H Pulse Rate [Pulse Oximeter] Respiratory Rate 19 19 Blood Pressure 103/71 Blood Pressure [Ri ght Upper Arm] Pulse Oximetry 88 87 L 88 Oxygen Delivery Me thod Room Air Room Air Room Air Oxygen Flow Rate 10/23/24 14:38 10/23/24 15:00 10/23/24 15:01 Temperature Pulse Rate 115 H 114 H Pulse Rate [Pulse Oximeter] Respiratory Rate 20 Blood Pressure 107/78 Blood Pressure [Ri ght Upper Arm] Pulse Oximetry 92 91 91 Oxygen Delivery Me thod OxyMask Blow By OxyMask OxyMask Oxygen Flow Rate 4 4 4 10/23/24 15:32 10/23/24 16:01 10/23/24 16:15 Temperature Pulse Rate 108 H 118 H Pulse Rate [Pulse Oximeter] Respiratory Rate 15 21 Blood Pressure 112/84 111/88 Blood Pressure [Ri ght Upper Arm] Pulse Oximetry 93 91 Oxygen Delivery Me thod OxyMask OxyMask OxyMask Oxygen Flow Rate 4 4 4 10/23/24 16:32 Temperature Pulse Rate 115 H Pulse Rate [Pulse Oximeter] Respiratory Rate 20 Blood Pressure 105/76 Blood Pressure [Ri ght Upper Arm] Pulse Oximetry 90 Oxygen Delivery Me thod OxyMask Oxygen Flow Rate 4 Hospitalist - H&P: Result Labs Labs: Short CBC 10/23/24 Range/Units 14:05 WBC 6.16 (4.50-11.00) K/uL Hgb 11.5 L (12.0-16.0) gm/dL Hct 35.5 (33.0-51.0) % Plt Count 171 (140-440) K/uL BMP 10/23/24 14:05 Sodium 145 Potassium 4.1 Chloride 114 Carbon Dioxide 19 L BUN 62 H Creatinine 1.5 Glucose 126 H Calcium 9.3 Cardiac Enzymes 10/23/24 Range/Units 14:05 Troponin I < 0.01 L (0.01-0.04) ng/mL Liver Function 10/23/24 Range/Units 14:05 Total Bilirubin 0.6 (0.1-1.5) mg/dL Direct Bilirubin 0.3 (0.0-0.5) mg/dL AST 99 H (12-35) U/L ALT 57 H (4-35) U/L Alkaline Phosphatase 103 (40-150) U/L Albumin 3.5 (3.3-5.0) g/dL Urine 10/23/24 Range/Units 16:10 Urine Color Yellow (Yellow) Urine Appearance Clear (Clear) Urine pH 5.5 (5.0-8.5) Ur Specific [place] 1.015 (1.000-1.030) Urine Protein Negative (Negative) Urine Glucose (UA) Negative (Negative) Imaging CT Chest/Ab/Pelvis: Attestation: I have reviewed the pertinent imaging results. Radiologist's impression: Centrilobular nodularity throughout the left lung with patchy consolidation in the left lower lobe. This is concerning for pneumonia/infectious bronchiolitis. Aspiration is also in the differential, but less likely considering distribution. Age-indeterminate compression deformity of T6 with 90 percent height loss. Right ovarian cystic lesion. Consider further evaluation with nonemergent pelvic ultrasound. Venous US: Radiologist's impression: No sign of deep venous thrombosis. Assessment and Plan Assessment and plan (1) Pneumonia: Problem comment: -CT scan of chest, abdomen, pelvis 08/22/2025: Centrilobular nodularity throughout the left lung with patchy consolidation in the left lower lobe. This is concerning for pneumonia/infectious bronchiolitis. Aspiration is also in the differential, but less likely considering distribution. -IV ceftriaxone and IV azithromycin administered in the emergency department. Continue the same on the floor for now. -in the context of the patient's condition this is highly suspicious for possible aspiration. Will ask speech pathology to assess. 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 On 10/23/2024 creatinine is 1.5 and BUN is 62. Likely due to dehydration. Possibly also related to ibuprofen that was started on 10/22/2024 at 600 mg q.i.d. Status: Acute (9) Elevated transaminase level: Problem comment: -possibly related to use of ibuprofen. Stop ibuprofen. -monitor Status: Acute Plan 1. Reviewed with technical support manager, senior carehome care giver with patient, Mariana, and called and left message with answering service for patient legal guardian Danica Starr. 2. Answered their questions 3. They are agreeable with above stated plans and recommendations Total Time Spent Total Time Spent: 80 minutes
--- NOTE | 2024-10-23 17:59 | RESP.RT ---
Patient has a lower left lobe pneumonia and the family day care worker indicates that she frequently aspirates when she drinks fluid. She has not tollerated having her head of the bed elevated, O2 mask on her face, or SAT probe on her hand. As a result her head of the bed is only slightly elevated, 10L Oxymask is on her chest and used as a blow by, and SAT probe is on her foot and does not always give an accurate reading as SATs with a good waveform vary from 76-96% relatively fast. We have tried other locations, but she pulls the probe off and gets irritated. She has not been able to follow directions and will intermittently cough, but nothing productive.
[2024-10-23] MEDS: AZITHROMYCIN 500 MG in 0.9 % SODIUM CHLORIDE 250 ml 250 ML 255 MG IVPB (18:03)
[2024-10-23] MEDS: 0.9 % SODIUM CHLORIDE 1000 ml 1,000 ML 125 ML IV (19:10)
[2024-10-23] MEDS: IPRAT-ALBUT 0.5-2.5 MG/3 ML NEB 1 NEB IH (19:13)
[2024-10-23] MEDS: BUSPIRONE 10 MG TABLET 15 MG PO (21:52)
[2024-10-23] MEDS: QUETIAPINE 100 MG TABLET 300 MG PO (21:53)
--- NOTE | 2024-10-23 23:49 | PC.NURSE ---
Pt alert to name, not oriented. Pt is mentally impaired at baseline. Pt easily irritable, grabs and scratches at staff, when discussing with [facility] staff this is the pts baseline. Pt weak and unable to stand. Pt thrashing in bed appears to be uncomfortable, repositioned throughout shift with minimal improvement. Pt refused to keep oxymask on, placed on chest and seemed to be tolerated. Audible crackles noted, upon auscultation some crackles and wheezes noted, though pt uncooperative to full assessment by RN. Attempted leaving?and coming?back, using [place] staff as distraction, attempts unsuccessful. Pt IV patent in left arm, unbothered. Werner catheter in place, patent and draining. Pt on side in bed, appears to be resting, call light within reach and alarms on. ?
[2024-10-24] VITALS (8 sets, daily range): BP systolic 104–150; BP diastolic 82–95; PULSE 109–128; RESP 24–40; TEMP 36.6–37.4; O2SAT 90–94
[2024-10-24] MEDS: 0.9 % SODIUM CHLORIDE 1000 ml 1,000 ML 125 ML IV (03:41)
--- NOTE | 2024-10-24 05:52 | PC.NURSE ---
Pt rested well this night. RN unable to get VS Pt becomes combative. Unable to place NC or oxy mask on Pt. Pt has to be held to take pills crushed in applesauce. Pt resp in mid 30's all night.
[2024-10-24] MEDS: LEVOTHYROXINE 25 MCG TABLET PO (06:31)
[2024-10-24] MEDS: Linaclotide [Linzess] 145 mcg capsule PO (06:32)
[2024-10-24] MEDS: polyethylene glycoL 3350 17 GM PACK PO ×2 (09:02→21:55)
[2024-10-24] MEDS: ESCITALOPRAM 10 MG TABLET 20 MG PO (09:02)
[2024-10-24] MEDS: BUSPIRONE 10 MG TABLET 15 MG PO ×2 (09:02→21:55)
[2024-10-24] MEDS: POTASSIUM CHLORIDE 10 MEQ CAPSULE ER 20 MEQ PO (09:02)
[2024-10-24] MEDS: QUETIAPINE 100 MG TABLET PO (09:02)
[2024-10-24 11:29] LABS: HCO3 VBG 18 mmol/L (21-28); Lactate* 0.8 mmol/L (0.5-1.9); PCO2 VBG 27 mmHG (40-50); PO2 VBG 37.4 mmHG (25-47); pH VBG 7.427 (7.32-7.43)
[2024-10-24 11:32] LABS: Basophils Absolute Auto 0.01 K/uL (0.00-0.30); Basophils Percent Auto 0.1 % (0.0-3.0); Eosinophils Absolute Auto 0.05 K/uL (0.00-0.50); Eosinophils Percent Auto 0.6 % (0.0-7.0); Hematocrit 32.2 % (33.0-51.0); Hemoglobin* 10.1 gm/dL (12.0-16.0); Immature Granulocytes Abs Auto 0.05 K/uL (0.00-0.30); Immature Granulocytes Pct Auto 0.6 %; Lymphocytes Percent Auto 7.2 % (20-44); Mean Corpuscular HGB Conc 31 gm/dL (32-36); Mean Corpuscular Hemoglobin 28 pg (26-34); Mean Corpuscular Volume 89 fL (80-100); Neutrophils Percent Auto 85.5 % (42.0-72.0); Platelet Count* 174 K/uL (140-440); RDW Coefficient of Variation % 14.6 % (11.5-15.5); Red Blood Count 3.63 m/uL (4.00-5.20)
--- NOTE | 2024-10-24 11:37 | REH.PT ---
PT: Evaluation not attempted today per nursing recommendations. Pt is nonverbal and lives at a correction. She has not mobilized with nursing and is at times agitated and combative. Can check in tomorrow to see if pt would be appropriate for evaluation. Per nursing pt may go to comfort cares, but they are discussing with her legal guardian the plan for discharge.
[2024-10-24 11:39] LABS: Slide Review Reflex No
[2024-10-24 11:45] LABS: Chloride* 130 mmol/L (96-114)
[2024-10-24 11:46] LABS: Potassium* 4.1 mmol/L (3.6-5.1); Sodium* 157 mmol/L (135-149)
[2024-10-24 11:48] LABS: Creatinine* 1.1 mg/dL (0.5-1.5); Est. Creatinine Clearance* 31.96; Estimated Glomerular Filt Rate 50 ml/min
[2024-10-24 11:49] LABS: Anion Gap 10 mEq/L (7-15); Blood Urea Nitrogen* 46 mg/dL (7-30); Calcium* 8.7 mg/dL (8.4-10.6); Carbon Dioxide* 17 mmol/L (20-32); Glucose* 109 mg/dL (60-115)
[2024-10-24 12:06] LABS: Procalcitonin* 7.61 ng/mL (<0.50)
--- NOTE | 2024-10-24 13:25 | PM.IMPN1 ---
Progress Note: A&P Assessment and plan (1) Respiratory failure: Problem details: - resting room air oxygen saturations in the 80s with tachypnea - acute hypoxemic respiratory failure due to pneumonia - Continue oxygen supplementation Status: Acute (2) Pneumonia: Problem details: -CT scan of chest, abdomen, pelvis 08/22/2025: Centrilobular nodularity throughout the left lung with patchy consolidation in the left lower lobe. This is concerning for pneumonia/infectious bronchiolitis. Aspiration is also in the differential, but less likely considering distribution. -IV ceftriaxone and IV azithromycin administered in the emergency department. Continue the same on the floor for now. -in the context of the patient's condition this is highly suspicious for possible aspiration. Will ask speech pathology to assess. -possible sepsis Status: Acute (3) Urinary retention: Problem details: -acute urinary retention, possibly related to oxycodone use; oxycodone stopped Status: Acute (4) Abnormal bruising: Status: Acute (5) Left foot pain: Problem details: -onset this past 10/18/2024, without known trauma Status: Acute (6) Acute kidney injury: Problem details: -baseline creatinine of 1 and BUN of 39. On 10/23/2024 creatinine is 1.5 and BUN is 62. Likely due to dehydration. Possibly also related to ibuprofen that was started on 10/22/2024 at 600 mg q.i.d. 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 Stop ibuprofen. -somewhat worse, monitor Status: Acute (9) Dehydration: Problem details: -creatinine and BUN are markedly elevated from baseline, improving -monitor Status: Acute (10) Constipation: Problem details: acute on chronic -bisacodyl supp Status: Acute Time Spent With Patient Total time spent: Today I spent 60 minutes seeing the patient, speaking with caregivers, phone conversation with legal guardian services, reviewing [facility] and EPIC notes/diagnostics/labs, discussing the care plan with our care team that includes social work, PT/OT, pharmacy, RT, assisted and documenting my impressions and plan in the medical record. Subjective Time Seen by Provider: 09:40 Date Seen: 10/24/24 Interval history: Katie is nonverbal at baseline. She was restless and agitated overnight, but has become less responsive and her HR and RR are more elevated. I called her court-appointed guardian, Danica Colon, at [phone]. [facility] and gave and emergency number for the weekends and holidays. I called that emergency number, , and spoke with an intake person who relayed my message to a supervisor histology at [facility]. That person, Briseyda Ortiz, called me back and we spoke briefly about Katie's past medical history and more extensively about her current situation and change in medical status. She confirmed that the patient is DNR/DNI. I noted that due to her altered mental status and baseline intellectual disability, BiPAP and CPAP per contraindicated. While she is not hypoxic, she is breathing very quickly and has a rapid heart rate. We discussed that these are indicators that she is very sick. We discussed comfort verses ongoing treatments. Briseyda noted that end of life discussions required more rigorous process and paperwork and that she would be contacting her supervisor histology today to discuss next steps, but Katie should continue receiving treatments for now and continue as DNR/DNI status. Briseyda demonstrated understanding that Katie is at risk of discomfort and worsening condition and even in the meantime. There nurses tell me that she does not tolerate having the head of bed elevated or any telemetry or oxygen on as she just pulls that all off. They tell me that she is also becoming less responsive than she was initially. This afternoon Katie's caregivers came to visit. They note that she appears much worse and her breathing is noisier and harder. They tell me she hasn't had a BM in a week. Exam Narrative: Exam Narrative: General: Appears ill, eyes closed, laying flat in bed, restless at times, nonverbal, makes no attempt to meaningfully interact. When I placed my hand gently on her shoulder, after a moment she reached up and pushed it away. No pallor. No jaundice. Oropharynx: Clear. Mucous membranes slightly dry. Cardiovascular: Regular rate and rhythm. No murmurs, gallops, or rubs. Respiratory: Rhonchi throughout, no crackles or wheezes. Abdomen: Bowel sounds present. Soft, nondistended, nontender. Extremities: No lower extremity edema. Good capillary refill. Const: Vital Signs, click to edit/add: Vital Signs - 24 hr 10/23/24 13:40 10/23/24 13:55 10/23/24 14:00 Temperature Pulse Rate 122 H 125 H Pulse Rate [Pulse Oximeter] Respiratory Rate Blood Pressure Blood Pressure [Ri ght Arm] Pulse Oximetry 87 L 88 88 Oxygen Delivery Me thod Room Air Room Air Oxygen Flow Rate 10/23/24 14:30 10/23/24 14:32 10/23/24 14:38 Temperature Pulse Rate 113 H 112 H Pulse Rate [Pulse Oximeter] Respiratory Rate 19 19 Blood Pressure 103/71 Blood Pressure [Ri ght Arm] Pulse Oximetry 87 L 88 92 Oxygen Delivery Me thod Room Air Room Air OxyMask Blow By Oxygen Flow Rate 4 10/23/24 15:00 10/23/24 15:01 10/23/24 15:32 Temperature Pulse Rate 115 H 114 H 108 H Pulse Rate [Pulse Oximeter] Respiratory Rate 20 15 Blood Pressure 107/78 112/84 Blood Pressure [Ri ght Arm] Pulse Oximetry 91 91 93 Oxygen Delivery Me thod OxyMask OxyMask OxyMask Oxygen Flow Rate 4 4 4 10/23/24 16:01 10/23/24 16:15 10/23/24 16:32 Temperature Pulse Rate 118 H 115 H Pulse Rate [Pulse Oximeter] Respiratory Rate 21 20 Blood Pressure 111/88 105/76 Blood Pressure [Ri ght Arm] Pulse Oximetry 91 90 Oxygen Delivery Me thod OxyMask OxyMask OxyMask Oxygen Flow Rate 4 4 4 10/23/24 16:55 10/23/24 16:55 10/23/24 23:35 Temperature Pulse Rate Pulse Rate [Pulse Oximeter] 118 H Respiratory Rate 24 24 36 H Blood Pressure Blood Pressure [Ri ght Arm] 121/79 Pulse Oximetry 88 88 Oxygen Delivery Me thod Room Air Room Air Oxygen Flow Rate 4 10/23/24 23:39 10/23/24 23:40 10/24/24 02:16 Temperature Pulse Rate Pulse Rate [Pulse Oximeter] 118 H Respiratory Rate 36 H 36 H 34 H Blood Pressure Blood Pressure [Ri ght Arm] Pulse Oximetry 88 Oxygen Delivery Me thod Room Air Oxygen Flow Rate 10/24/24 09:15 10/24/24 09:15 10/24/24 09:26 Temperature 99.1 F Pulse Rate Pulse Rate [Pulse Oximeter] 128 H 128 H Respiratory Rate 40 H 40 H 40 H Blood Pressure Blood Pressure [Ri ght Arm] 140/95 H Pulse Oximetry 90 90 Oxygen Delivery Me thod Room Air Room Air Oxygen Flow Rate 10/24/24 11:00 Temperature 99.3 F Pulse Rate Pulse Rate [Pulse Oximeter] 109 H Respiratory Rate 36 H Blood Pressure Blood Pressure [Ri ght Arm] 140/87 H Pulse Oximetry 92 Oxygen Delivery Me thod Room Air Oxygen Flow Rate Labs Labs: Laboratory Results - last 24 hr 10/23/24 10/23/24 10/23/24 14:05 15:45 16:10 WBC 6.16 RBC 4.09 Hgb 11.5 L Hct 35.5 MCV 87 MCH 28 MCHC 32 RDW Coeff of Bertin 14.5 Plt Count 171 Neut % (Auto) 82.3 H Lymph % (Auto) 7.3 L [place] % (Auto) 7.5 Eos % (Auto) 2.1 Baso % (Auto) 0.3 Neut # (Auto) 5.10 Lymph # (Auto) 0.40 L [place] # (Auto) 0.50 Eos # (Auto) 0.13 Baso # (Auto) 0.02 Abs Immat Gran (auto) 0.03 Imm/Tot Granulo (auto) 0.5 INR 1.08 APTT 34 H VBG pH 7.357 VBG pCO2 37 L VBG pO2 36.7 VBG HCO3 21 Sodium 145 Potassium 4.1 Chloride 114 Carbon Dioxide 19 L Anion Gap 12 BUN 62 H Creatinine 1.5 Estimated Creat Clear 20.29 Estimated GFR 35 Glucose 126 H Lactate 1.8 Calcium 9.3 Total Bilirubin 0.6 Direct Bilirubin 0.3 AST 99 H ALT 57 H Alkaline Phosphatase 103 Troponin I < 0.01 L C-Reactive Protein 43.3 H NT-Pro-B Natriuret Pep 522 Total Protein 6.6 Albumin 3.5 Procalcitonin Urine Color Yellow Urine Appearance Clear Urine pH 5.5 Ur Specific [place] 1.015 Urine Protein Negative Urine Glucose (UA) Negative Urine Ketones Negative Urine Blood Trace-intact A Urine Nitrite Negative Urine Bilirubin Negative Urine Urobilinogen 0.2 Ur Leukocyte Esterase Negative Urine RBC 0-2 Urine WBC 0-2 Ur Squamous Epith Cells None Urine Bacteria Few A SARS-CoV-2 (PCR) Negative SARS-CoV-2 Influenza Type A (PCR) Negative PCR FLU A Influenza Type B (PCR) Negative PCR FLU B RSV (PCR) Negative PCR RSV Lab Acknowledgement Test Added Test Added 10/24/24 11:22 WBC 8.20 RBC 3.63 L Hgb 10.1 L Hct 32.2 L MCV 89 MCH 28 MCHC 31 L RDW Coeff of Bertin 14.6 Plt Count 174 Neut % (Auto) 85.5 H Lymph % (Auto) 7.2 L [place] % (Auto) 6.0 Eos % (Auto) 0.6 Baso % (Auto) 0.1 Neut # (Auto) 7.00 Lymph # (Auto) 0.60 L [place] # (Auto) 0.50 Eos # (Auto) 0.05 Baso # (Auto) 0.01 Abs Immat Gran (auto) 0.05 Imm/Tot Granulo (auto) 0.6 INR APTT VBG pH 7.427 VBG pCO2 27 L VBG pO2 37.4 VBG HCO3 18 L Sodium 157 H Potassium 4.1 Chloride 130 H Carbon Dioxide 17 L Anion Gap 10 BUN 46 H Creatinine 1.1 Estimated Creat Clear 31.96 Estimated GFR 50 Glucose 109 Lactate 0.8 Calcium 8.7 Total Bilirubin Direct Bilirubin AST ALT Alkaline Phosphatase Troponin I C-Reactive Protein NT-Pro-B Natriuret Pep Total Protein Albumin Procalcitonin 7.61 H Urine Color Urine Appearance Urine pH Ur Specific [place] Urine Protein Urine Glucose (UA) Urine Ketones Urine Blood Urine Nitrite Urine Bilirubin Urine Urobilinogen Ur Leukocyte Esterase Urine RBC Urine WBC Ur Squamous Epith Cells Urine Bacteria SARS-CoV-2 (PCR) Influenza Type A (PCR) Influenza Type B (PCR) RSV (PCR) Lab Acknowledgement
[2024-10-24] MEDS: cefTRIAXone 1 GM in 0.9 % SODIUM CHLORIDE Mini-bag 100 ML IVPB (15:59)
--- NOTE | 2024-10-24 16:14 | PC.NURSE ---
End of shift. pt is non verbal. she is opens here eyes to voice. pt is resistive to cares. she will hit out at staff during cares. she was turned and repositioned. VSS. HR was elevated and EKG was done. lab was done and she needed 2 people to hold her down. she pulls tele and Sao2 off, she did not try to pull IV or Werner out. staff from [facility] was here was in room. PT and OT tried to work with her.
[2024-10-24] MEDS: bisacodyL 10 MG SUPP.RECT PR (17:09)
[2024-10-24] MEDS: AZITHROMYCIN 500 MG in 0.9 % SODIUM CHLORIDE 250 ml 250 ML 255 MG IVPB (18:31)
[2024-10-24] MEDS: IPRAT-ALBUT 0.5-2.5 MG/3 ML NEB 1 NEB IH (18:31)
[2024-10-24] MEDS: QUETIAPINE 100 MG TABLET 300 MG PO (21:55)
[2024-10-24] MEDS: guaiFENesin 600 MG TAB.ER.12H 1200 MG PO (21:55)
[2024-10-24] MEDS: ENOXAPARIN 30 MG/0.3ML INJ SUBCUT (21:55)
[2024-10-24] MEDS: SODIUM CHLORIDE 0.9 % (FLUSH) 10 ML SYRINGE 5 ML IVF (21:56)
--- NOTE | 2024-10-24 23:24 | PC.NURSE ---
Pt alert, unorientated and vitally stable, though tachycardic. Pt nonverbal and mentally impaired at baseline. Pt resistive to care, will grab, scratch and hit staff during cares. Nebs are completed via face tent, tolerated poorly. Meds crushed in pudding, pt tolerated well. Pt had suppository and large BM. Werner patent and draining. Pt in bed, appears to be resting, bed alarm on.
[2024-10-25] VITALS (8 sets, daily range): PULSE 115; RESP 24–26; TEMP 36.7; O2SAT 90
[2024-10-25] MEDS: LORazepam 2 MG/ML inj 0.5 MG IVP ×3 (04:17→19:19)
[2024-10-25] MEDS: LEVOTHYROXINE 25 MCG TABLET PO (06:20)
[2024-10-25] MEDS: Linaclotide [Linzess] 145 mcg capsule PO (06:20)
[2024-10-25] MEDS: MORPHINE 2 MG/ML inj IVP ×2 (06:22→15:40)
[2024-10-25] MEDS: polyethylene glycoL 3350 17 GM PACK PO (09:33)
[2024-10-25] MEDS: guaiFENesin 600 MG TAB.ER.12H 1200 MG PO ×2 (09:33→20:51)
[2024-10-25] MEDS: ESCITALOPRAM 10 MG TABLET 20 MG PO (09:33)
[2024-10-25] MEDS: BUSPIRONE 10 MG TABLET 15 MG PO ×2 (09:33→20:51)
[2024-10-25] MEDS: QUETIAPINE 100 MG TABLET PO (09:34)
[2024-10-25] MEDS: POTASSIUM CHLORIDE 10 MEQ CAPSULE ER 20 MEQ PO (09:34)
[2024-10-25] MEDS: SODIUM CHLORIDE 0.9 % (FLUSH) 10 ML SYRINGE 5 ML IVF ×3 (09:34→22:42)
--- NOTE | 2024-10-25 13:39 | REH.OT ---
Pt continuing to be combative with staff today, not able to take vitals, multiple staff scratched. Pt appears happier when she is in her WC vs bed. OT continue to check with RN if any therapy needs, also possible will be comfort cares, but waiting on word from appointed guardian.
--- NOTE | 2024-10-25 15:28 | PC.NURSE ---
End of Shift: pt is non-verbal. Patient has been combative with cares this shift, refused VS this shift. Pt scratched tag writer this shift. Staff had to feed pt this shift. PRN medication given due to increased agitation. ?
--- NOTE | 2024-10-25 15:43 | PM.IMPN1 ---
Progress Note: A&P Assessment and plan (1) Respiratory failure: Problem details: - resting room air oxygen saturations in the 80s with tachypnea - acute hypoxemic respiratory failure due to pneumonia - Satting well on RA today, no longer tachypneic Status: Resolved (2) Pneumonia: Problem details: -CT scan of chest, abdomen, pelvis 08/22/2025: Centrilobular nodularity throughout the left lung with patchy consolidation in the left lower lobe. This is concerning for pneumonia/infectious bronchiolitis. Aspiration is also in the differential, but less likely considering distribution. -IV ceftriaxone and IV azithromycin administered in the emergency department. Continue the same on the floor for now. -in the context of the patient's condition this is highly suspicious for possible aspiration. Will ask speech pathology to assess. Status: Acute (3) Urinary retention: Problem details: -acute urinary retention, possibly related to oxycodone use; oxycodone stopped - 10/25 trial of d/c moore today Status: Acute (4) Abnormal bruising: Status: Acute (5) Left foot pain: Problem details: -onset this past 10/18/2024, without known trauma Status: Acute (6) Acute kidney injury: Problem details: -baseline creatinine of 1 and BUN of 39. On 10/23/2024 creatinine is 1.5 and BUN is 62. Likely due to dehydration. Possibly also related to ibuprofen that was started on 10/22/2024 at 600 mg q.i.d. 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 Stop ibuprofen. -somewhat worse, monitor Status: Acute (9) Dehydration: Problem details: -creatinine and BUN are markedly elevated from baseline, improving -monitor Status: Acute (10) Constipation: Problem details: acute on chronic -bisacodyl supp Status: Acute Subjective Time Seen by Provider: 09:00 Date Seen: 10/25/24 Interval history: Katie is more alert and agitated today. Exam Narrative: Exam Narrative: General: No acute distress, nonverbal. No pallor. No jaundice. Very agitated when I try to examine her, grabbing and pushing me away. Two staff members assisted me during the exam. Oropharynx: Clear. Mucous membranes moist. Cardiovascular: Regular rate and rhythm. No murmurs, gallops, or rubs. Respiratory: Rhonchi throughout, no crackles or wheezes. Abdomen: Bowel sounds present. Soft, nondistended, nontender. Extremities: No lower extremity edema. Good capillary refill. Const: Vital Signs, click to edit/add: Vital Signs - 24 hr 10/24/24 19:00 10/24/24 23:04 10/24/24 23:08 Temperature 97.9 F 98.9 F Pulse Rate [Pulse Oximeter] 118 H 118 H Respiratory Rate 24 24 24 Blood Pressure [Ri ght Arm] 150/90 H Pulse Oximetry 94 94 Oxygen Delivery Me thod Room Air Oxygen Flow Rate 0 10/24/24 23:08 10/25/24 02:03 10/25/24 07:00 Temperature Pulse Rate [Pulse Oximeter] Respiratory Rate 24 24 26 H Blood Pressure [Ri ght Arm] Pulse Oximetry 94 Oxygen Delivery Me thod Room Air Oxygen Flow Rate 0 0 10/25/24 07:00 10/25/24 07:00 10/25/24 12:40 Temperature Pulse Rate [Pulse Oximeter] Respiratory Rate 26 H 26 H 24 Blood Pressure [Ri ght Arm] Pulse Oximetry Oxygen Delivery Me thod Oxygen Flow Rate
[2024-10-25] MEDS: cefTRIAXone 1 GM in 0.9 % SODIUM CHLORIDE Mini-bag 100 ML IVPB (15:51)
[2024-10-25 16:21] LABS: Basophils Absolute Auto 0.01 K/uL (0.00-0.30); Basophils Percent Auto 0.1 % (0.0-3.0); Eosinophils Absolute Auto 0.08 K/uL (0.00-0.50); Eosinophils Percent Auto 0.8 % (0.0-7.0); Hematocrit 35.7 % (33.0-51.0); Hemoglobin* 10.7 gm/dL (12.0-16.0); Immature Granulocytes Abs Auto 0.26 K/uL (0.00-0.30); Immature Granulocytes Pct Auto 2.5 %; Mean Corpuscular HGB Conc 30 gm/dL (32-36); Mean Corpuscular Hemoglobin 27 pg (26-34); Mean Corpuscular Volume 91 fL (80-100); Monocytes Percent Auto 6.9 % (0.0-11.0); Neutrophils Percent Auto 81.7 % (42.0-72.0); Platelet Count* 207 K/uL (140-440); RDW Coefficient of Variation % 14.7 % (11.5-15.5); Red Blood Count 3.92 m/uL (4.00-5.20); White Blood Count* 10.28 K/uL (4.50-11.00)
[2024-10-25 16:31] LABS: HCO3 VBG 20 mmol/L (21-28); PCO2 VBG 42 mmHG (40-50); PO2 VBG 30.2 mmHG (25-47); pH VBG 7.296 (7.32-7.43)
[2024-10-25 16:49] LABS: Albumin* 3.3 g/dL (3.3-5.0); Chloride* 132 mmol/L (96-114); Potassium* 3.7 mmol/L (3.6-5.1)
[2024-10-25 16:50] LABS: Slide Review Reflex No
[2024-10-25 16:52] LABS: Alkaline Phosphatase* 128 U/L (40-150); Anion Gap 9 mEq/L (7-15); Aspartate Amino Transferase* 67 U/L (12-35); Bilirubin Total* 0.4 mg/dL (0.1-1.5); Blood Urea Nitrogen* 44 mg/dL (7-30); Carbon Dioxide* 20 mmol/L (20-32); Creatinine* 1.1 mg/dL (0.5-1.5); Est. Creatinine Clearance* 29.93; Estimated Glomerular Filt Rate 50 ml/min; Glucose* 169 mg/dL (60-115); Total Protein* 6.5 g/dL (6.0-8.3)
[2024-10-25 16:53] LABS: Alanine Aminotransferase* 64 U/L (4-35); Calcium* 10.2 mg/dL (8.4-10.6)
[2024-10-25 16:55] LABS: Sodium* 161 mmol/L (135-149)
--- NOTE | 2024-10-25 17:27 | PC.NURSE ---
[id number]: Pt up in chair. Pt will grab, pinch and scratch at staff. Werner patent and draining. Encouraging more fluid intake.
[2024-10-25] MEDS: AZITHROMYCIN 500 MG in 0.9 % SODIUM CHLORIDE 250 ml 250 ML 255 MG IVPB (17:58)
[2024-10-25] MEDS: 5 % DEXTROSE 1000 ML 1,000 ML 200 ML IV (18:10)
--- NOTE | 2024-10-25 19:33 | PC.NURSE ---
End of shift-- Pt admitted to CCU from floor care at roughly 1700. Unable to obtain VS r/t patient behavior. Administered 5% dextrose per MD order. BS 111 and 192. Encouraged patient to drink water. Report to KATH Jacobo.
[2024-10-25 19:53] LABS: Sodium* 162 mmol/L (135-149)
[2024-10-25] MEDS: ENOXAPARIN 30 MG/0.3ML INJ SUBCUT (20:51)
[2024-10-25] MEDS: QUETIAPINE 100 MG TABLET 300 MG PO (20:52)
[2024-10-25 21:32] LABS: Sodium* 156 mmol/L (135-149)
[2024-10-25] MEDS: LORazepam 0.5 MG TABLET PO (21:56)
[2024-10-25 22:25] LABS: Sodium* 156 mmol/L (135-149)
[2024-10-25] MEDS: FUROSEMIDE 10 MG/ML inj 40 MG IVP (22:42)
[2024-10-25] MEDS: 5 % DEXTROSE 1000 ML 1,000 ML 300 ML IV (22:43)
[2024-10-25 23:35] LABS: Sodium* 154 mmol/L (135-149)
[2024-10-26] VITALS (17 sets, daily range): BP systolic 119–153; BP diastolic 76–97; PULSE 100–126; RESP 16–44; TEMP 36.6–38.1; O2SAT 91–95
[2024-10-26 00:39] LABS: Sodium* 151 mmol/L (135-149)
[2024-10-26 01:31] LABS: Sodium* 151 mmol/L (135-149)
[2024-10-26] MEDS: 5 % DEXTROSE 1000 ML 1,000 ML 300 ML IV (01:57)
[2024-10-26 02:30] LABS: Sodium* 149 mmol/L (135-149)
[2024-10-26 03:23] LABS: Sodium* 148 mmol/L (135-149)
[2024-10-26 04:10] LABS: HCO3 VBG 21 mmol/L (21-28); PCO2 VBG 30 mmHG (40-50); PO2 VBG 49.6 mmHG (25-47); pH VBG 7.455 (7.32-7.43)
[2024-10-26] MEDS: 5 % DEXTROSE 1000 ML 1,000 ML 50 ML IV ×2 (04:10→10:10)
[2024-10-26 04:11] LABS: Basophils Percent Auto 0.3 % (0.0-3.0); Hematocrit 31.8 % (33.0-51.0); Hemoglobin* 9.9 gm/dL (12.0-16.0); Immature Granulocytes Pct Auto 2.4 %; Lymphocytes Percent Auto 9.2 % (20-44); Mean Corpuscular HGB Conc 31 gm/dL (32-36); Mean Corpuscular Hemoglobin 28 pg (26-34); Mean Corpuscular Volume 89 fL (80-100); Monocytes Percent Auto 6.9 % (0.0-11.0); Neutrophils Percent Auto 78.2 % (42.0-72.0); Platelet Count* 185 K/uL (140-440); RDW Coefficient of Variation % 14.6 % (11.5-15.5); Red Blood Count 3.56 m/uL (4.00-5.20); White Blood Count* 11.45 K/uL (4.50-11.00)
[2024-10-26 04:14] LABS: Slide Review Reflex No
[2024-10-26] MEDS: ACETAMINOPHEN 325 MG TABLET PO ×3 (04:19→14:43)
[2024-10-26 04:27] LABS: Chloride* 117 mmol/L (96-114); Potassium* 3.4 mmol/L (3.6-5.1); Sodium* 145 mmol/L (135-149)
[2024-10-26 04:30] LABS: Alanine Aminotransferase* 60 U/L (4-35); Alkaline Phosphatase* 118 U/L (40-150); Anion Gap 8 mEq/L (7-15); Aspartate Amino Transferase* 54 U/L (12-35); Bilirubin Total* 0.5 mg/dL (0.1-1.5); Blood Urea Nitrogen* 37 mg/dL (7-30); Carbon Dioxide* 20 mmol/L (20-32); Est. Creatinine Clearance* 32.92; Estimated Glomerular Filt Rate 56 ml/min; Glucose* 183 mg/dL (60-115); Total Protein* 5.9 g/dL (6.0-8.3)
--- NOTE | 2024-10-26 04:30 | PC.NURSE ---
Pt Na was up to 162. 5% Dextrose ran at 300 ml/hr while Sodium and Glucose was checked hourly. Na Steadily decreased overnight and @ 0405 Na was 145. Per instruction 5% Dextrose was turned down at this point to 50ml/hr. Next sodium to be drawn at 0600, then Q4 after that if Na in acceptable range. Pt was extremely restless and combative late evening. Ativan was given PRN 1 dose PO and the pt calmed down and Staff was able to complete tasks for the night. Pt was given Lasix and over 2L of urine was voided via Werner. Pt HR was 115-122 all night. O2 was low 90s on RA.
[2024-10-26 04:31] LABS: Calcium* 8.7 mg/dL (8.4-10.6)
[2024-10-26 04:45] LABS: C Reactive Protein* 24.2 mg/dL (0.5-1.0)
[2024-10-26 06:15] LABS: Sodium* 147 mmol/L (135-149)
--- NOTE | 2024-10-26 07:31 | CRLHL7_ITS ---
For Patients: As a result of the Century Cures Act, medical imaging exams and procedure reports are released immediately into your electronic medical record. You may view this report before your referring provider. If you have questions, please contact your health care provider. INDICATION: Tachycardia. Respiratory failure. Recent lichen Crystal. Clinical signs and symptoms of pulmonary embolus. COMPARISON: A noncontrast chest CT dated October 23, 2024. TECHNIQUE: : CT examination of the chest was performed with the uneventful intravenous administration of 95 cc of Isovue 370 while thin axial sections were obtained from above the apices of the lungs to the lung bases. The examination was timed as a pulmonary artery angiogram. Please note that all CT scans at this facility use dose modulation, iterative reconstruction, and/or weight-based dosing when appropriate to reduce radiation dose to as low as reasonably achievable. FINDINGS: : HEART and MEDIASTINUM: Heart size normal. No mediastinal or hilar adenopathy or mass. No pericardial effusion. ESOPHAGUS: Hiatal hernia. Patulous and mildly dilated esophagus. It is partially fluid-filled up to near the thoracic inlet. This puts the patient at substantial risk for aspiration. PULMONARY ARTERIAL CIRCULATION: Limited by motion but no large central pulmonary emboli identified. LUNGS and PLEURAL SPACES: Limited by motion. Right lung shows patchy atelectasis and a probably inflammatory ground-glass opacity in the right upper lobe.Small nodules would likely be obscured due to motion. Patchy multifocal ground-glass on the left with multiple tree-in-bud nodular opacities. This is consistent with infectious bronchiolitis and developing pneumonia in the appearance has somewhat worsened. There is a small amount of fluid in the bronchi indicating that the left-sided findings may be due to aspiration. VISUALIZED UPPER ABDOMEN: No acute appearing upper abdominal abnormality OSSEOUS STRUCTURES: Demineralization, degenerative changes and compression of a mid to upper thoracic vertebral body essentially unchanged TUBES and LINES: None. IMPRESSION: 1. Limited by motion but no indication of large pulmonary embolus. 2. Multifocal airspace process on the left probably a combination of infectious bronchiolitis and bronchopneumonia worsened since previously. No cavitation. No pleural effusion or pneumothorax on either side. Minimal inflammatory opacity in the right upper lobe, worsened. There is a small amount of fluid in the bronchial system on the left raising the possibility that the left-sided pneumonitis due to aspiration. 3. Patulous, mildly dilated and fluid-filled esophagus extending towards the thoracic inlet. This puts the patient at significant risk for aspiration. 4. Other nonacute appearing findings as above Please note that all CT scans at this facility use dose modulation, iterative reconstruction, and/or weight-based dosing when appropriate to reduce radiation dose to as low as reasonably achievable. Dictated by Ross Knott MD @ 10/26/2024 8:46:53 AM (Electronically Signed)
[2024-10-26] MEDS: BUSPIRONE 10 MG TABLET 15 MG PO ×2 (08:42→19:59)
[2024-10-26] MEDS: POTASSIUM CHLORIDE 10 MEQ CAPSULE ER 20 MEQ PO (08:42)
[2024-10-26] MEDS: ESCITALOPRAM 10 MG TABLET 20 MG PO (08:42)
[2024-10-26] MEDS: guaiFENesin 600 MG TAB.ER.12H 1200 MG PO ×2 (08:42→20:00)
[2024-10-26] MEDS: LEVOTHYROXINE 25 MCG TABLET PO (08:42)
[2024-10-26] MEDS: QUETIAPINE 100 MG TABLET PO (08:43)
[2024-10-26] MEDS: SODIUM CHLORIDE 0.9 % (FLUSH) 10 ML SYRINGE 5 ML IVF (08:43)
[2024-10-26] MEDS: polyethylene glycoL 3350 17 GM PACK PO ×2 (08:43→19:59)
[2024-10-26] MEDS: Linaclotide [Linzess] 145 mcg capsule PO (08:44)
[2024-10-26] MEDS: MORPHINE 2 MG/ML inj IVP ×3 (09:09→20:49)
[2024-10-26 09:54] LABS: Magnesium* 1.9 mg/dL (1.5-2.6)
[2024-10-26] MEDS: VANCOMYCIN 1.25 GM/250 ML 1.25 GM/250 ML PIGGYBACK IVPB (10:09)
[2024-10-26 10:29] LABS: Sodium* 144 mmol/L (135-149)
--- NOTE | 2024-10-26 11:15 | REH.OT ---
Pt. not appropriate for OT evaluation. She is w/c bound w/ [place] lift for transfers. She is full care at baseline.
[2024-10-26] MEDS: PIPERACILLIN/TAZOBACTAM 3.375 GM in 0.9 % SODIUM CHLORIDE Mini-bag 100 ML IVPB ×3 (11:42→23:28)
[2024-10-26] MEDS: POTASSIUM CHLORIDE 10 MEQ/100 ML PIGGYBACK 100 MEQ IVPB (12:42)
[2024-10-26] MEDS: LACTATED RINGERS 1000 ML 1,000 ML 75 ML IV (14:56)
--- NOTE | 2024-10-26 16:47 | PC.NURSE ---
PT NON-VERBAL, UP TO CHAIR VIA CEILING LIFT, PATIENT DID NOT TOLERATE BEING IN THE CHAIR PT WOULD BEND SO FAR FORWARD IN ATTEMPT TO GET OUT OF THE CHAIR, BROUGHT BACK TO BED WHERE PATIENT WAS ABLE TO REST, MORPHINE GIVEN X2 TODAY FOR INCREASED RR 28 AND INCREASED WORK OF BREATHING, RR AFTER ADMINISTRATION 20-24 AND PT SEEN RESTING IN BED, TYLENOL GIVEN FOR ELEVATED TEMPERATURES, PILLS CRUSHED AND GIVEN IN APPLESAUCE, WITH APPLESAUCE AND THICKENED LIQUIDS PATIENT NOTED TO HAVE A DELAYED SWALLOW AND AFTER EATING/DRINKING HAVE WET SOUNDING BREATHING, MD AWARE, INSTRUMENTATION ENGINEER SAW TODAY, THICKENED LIQUIDS IN SMALL AMOUNTS WITH INTERVENTIONS, MEDEL PATENT AND DRAINING, FAMILY AND CAREGIVERS VISITING TODAY AND VERY SUPPORTIVE, PATIENT GRABS AT CAREGIVERS WRISTS/ARMS WHEN TRYING TO ASSIST WITH CARES AND REPOSITIONING, ONCE POSITIONED/INTERVENTION DONE PT APPEARS TO REST COMFORTABLY..
--- NOTE | 2024-10-26 17:47 | P.IMPN_ITS ---
Progress Note: A&P Assessment and plan (1) Hypernatremia: Problem details: - resolved with D5W overnight. Transitioning to LR for maintenance fluid today. Recheck sodium this evening. Status: Acute (2) Respiratory failure: Problem details: Upon admission: - resting room air oxygen saturations in the 80s with tachypnea - acute hypoxemic respiratory failure due to pneumonia - 10/26 tachypneic and less responsive today, using accessory muscles, still oxygenating well. Obtained repeat chest CT which showed worsening pneumonia, no PE. Status: Resolved (3) Pneumonia: Problem details: -CT scan of chest, abdomen, pelvis 08/22/2025: Centrilobular nodularity throughout the left lung with patchy consolidation in the left lower lobe. This is concerning for pneumonia/infectious bronchiolitis. Aspiration is also in the differential, but less likely considering distribution. -IV ceftriaxone and IV azithromycin administered in the emergency department. Continue the same on the floor for now. -in the context of the patient's condition this is highly suspicious for possible aspiration. Will ask speech pathology to assess. - 10/26 worsening pneumonia. Expanded antibiotics to Zosyn plus vancomycin. Obtain MRSA swab. If this is negative can discontinue vanco. Continue in CCU status for sepsis due to pneumonia. Speech pathology attempted assessment today. Will still need trial with thickened liquids. Status: Acute (4) Urinary retention: Problem details: -acute urinary retention, possibly related to oxycodone use; oxycodone stopped - 10/26 due to hypernatremia and need for strict I's and O's, did not discontinue urinary catheter yesterday after all. Status: Acute (5) Abnormal bruising: Status: Acute (6) Left foot pain: Problem details: -onset this past 10/18/2024, without known trauma Status: Acute (7) Acute kidney injury: Problem details: -baseline creatinine of 1 and BUN of 39. On 10/23/2024 creatinine is 1.5 and BUN is 62. Likely due to dehydration. Possibly also related to ibuprofen that was started on 10/22/2024 at 600 mg q.i.d. 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 Stop ibuprofen. -somewhat worse, monitor Status: Acute (10) Dehydration: Problem details: -creatinine and BUN are markedly elevated from baseline, improving -monitor Status: Acute (11) Constipation: Problem details: acute on chronic -bisacodyl supp Status: Acute (12) Hypokalemia: Problem details: Since patient is having potential difficulty with swallowing and altered mental status, will replace potassium via IV. Status: Acute Time Spent With Patient Total time spent: Today I spent 70 minutes providing critical care for this patient by examining, assessing, managing labs, diagnostics, reviewing labs diagnostics and medications, discussing plan of care with the team which includes speech therapy, fdc, social work, PT, OT, RT, pharmacy, and documenting my impressions and plan in the medical record. Subjective Time Seen by Provider: :25 Date Seen: 10/26/24 Interval history: Katie is breathing more heavily and rapidly again today. She is using accessory muscles. She was very agitated earlier today. She is refusing water to drink. Her brother, [id number], and the supervisor sawmill of her halfway where year this afternoon and we had an extended conversation about her care. They recognize that she is a [place] and they are not her decision makers. They are interested in her comfort. We discussed pneumonia, aspiration, esophageal potulous, speech therapy, antibiotics, hypernatremia, and respiratory failure. Exam Narrative: Exam Narrative: General: Agitated, less responsive today, nonverbal. No pallor. No jaundice. Very agitated when I try to examine her, grabbing and pushing me away. Two staff members assisted me during the exam. Oropharynx: Clear. Mucous membranes moist. Cardiovascular: Regular rate and rhythm. No murmurs, gallops, or rubs. Respiratory: Using accessory muscles. Rhonchi throughout, no crackles or wheezes. Abdomen: Bowel sounds present. Soft, nondistended, nontender. Extremities: No lower extremity edema. Good capillary refill. Const: Vital Signs, click to edit/add: Vital Signs - 24 hr 10/25/24 19:24 10/25/24 22:25 10/25/24 22:31 Temperature 98.1 F Pulse Rate [Pulse Oximeter] 115 H 115 H Respiratory Rate 24 24 24 Blood Pressure [Ri ght Arm] Pulse Oximetry 90 Oxygen Delivery Me thod Room Air Oxygen Flow Rate 10/25/24 22:35 10/26/24 02:01 10/26/24 04:19 Temperature 98.1 F Pulse Rate [Pulse Oximeter] 126 H Respiratory Rate 24 16 Blood Pressure [Ri ght Arm] Pulse Oximetry 90 91 Oxygen Delivery Me thod Room Air Room Air Oxygen Flow Rate 0 10/26/24 04:22 10/26/24 05:40 10/26/24 08:00 Temperature 98.7 F 99 F 100.5 F H Pulse Rate [Pulse Oximeter] 122 H 118 H 120 H Respiratory Rate 24 24 23 Blood Pressure [Ri ght Arm] Pulse Oximetry 92 92 94 Oxygen Delivery Me thod Room Air Room Air Room Air Oxygen Flow Rate 0 10/26/24 08:10 10/26/24 08:10 10/26/24 08:45 Temperature 100.5 F H Pulse Rate [Pulse Oximeter] 120 H Respiratory Rate 23 23 Blood Pressure [Ri ght Arm] Pulse Oximetry 94 Oxygen Delivery Me thod Room Air Oxygen Flow Rate 0 10/26/24 10:00 10/26/24 12:00 10/26/24 14:40 Temperature 99.3 F 99.9 F H Pulse Rate [Pulse Oximeter] 108 H 108 H 122 H Respiratory Rate 22 22 28 H Blood Pressure [Ri ght Arm] 127/97 H 135/86 153/95 H Pulse Oximetry 92 93 93 Oxygen Delivery Me thod Room Air Room Air Room Air Oxygen Flow Rate 0 10/26/24 14:43 10/26/24 15:00 10/26/24 15:00 Temperature 100.1 F H Pulse Rate [Pulse Oximeter] 122 H Respiratory Rate 28 H 28 H Blood Pressure [Ri ght Arm] Pulse Oximetry 93 Oxygen Delivery Me thod Room Air Oxygen Flow Rate 0 10/26/24 16:00 Temperature Pulse Rate [Pulse Oximeter] 106 H Respiratory Rate 20 Blood Pressure [Ri ght Arm] Pulse Oximetry 93 Oxygen Delivery Me thod Room Air Oxygen Flow Rate Labs Labs: Laboratory Results - last 24 hr 10/25/24 10/25/24 10/25/24 19:22 21:03 22:05 WBC RBC Hgb Hct MCV MCH MCHC RDW Coeff of Bertin Plt Count Neut % (Auto) Lymph % (Auto) [place] % (Auto) Eos % (Auto) Baso % (Auto) Neut # (Auto) Lymph # (Auto) [place] # (Auto) Eos # (Auto) Baso # (Auto) Abs Immat Gran (auto) Imm/Tot Granulo (auto) VBG pH VBG pCO2 VBG pO2 VBG HCO3 Sodium 162 H* 156 H 156 H Potassium Chloride Carbon Dioxide Anion Gap BUN Creatinine Estimated Creat Clear Estimated GFR Glucose Calcium Magnesium Total Bilirubin AST ALT Alkaline Phosphatase C-Reactive Protein Total Protein Albumin Lab Acknowledgement 10/25/24 10/26/24 10/26/24 23:10 00:15 01:05 WBC RBC Hgb Hct MCV MCH MCHC RDW Coeff of Bertin Plt Count Neut % (Auto) Lymph % (Auto) [place] % (Auto) Eos % (Auto) Baso % (Auto) Neut # (Auto) Lymph # (Auto) [place] # (Auto) Eos # (Auto) Baso # (Auto) Abs Immat Gran (auto) Imm/Tot Granulo (auto) VBG pH VBG pCO2 VBG pO2 VBG HCO3 Sodium 154 H 151 H 151 H Potassium Chloride Carbon Dioxide Anion Gap BUN Creatinine Estimated Creat Clear Estimated GFR Glucose Calcium Magnesium Total Bilirubin AST ALT Alkaline Phosphatase C-Reactive Protein Total Protein Albumin Lab Acknowledgement 10/26/24 10/26/24 10/26/24 02:05 03:05 04:05 WBC 11.45 H RBC 3.56 L Hgb 9.9 L Hct 31.8 L MCV 89 MCH 28 MCHC 31 L RDW Coeff of Bertin 14.6 Plt Count 185 Neut % (Auto) 78.2 H Lymph % (Auto) 9.2 L [place] % (Auto) 6.9 Eos % (Auto) 3.0 Baso % (Auto) 0.3 Neut # (Auto) 9.00 H Lymph # (Auto) 1.10 [place] # (Auto) 0.80 Eos # (Auto) 0.30 Baso # (Auto) 0.00 Abs Immat Gran (auto) 0.30 Imm/Tot Granulo (auto) 2.4 VBG pH 7.455 H VBG pCO2 30 L VBG pO2 49.6 H VBG HCO3 21 Sodium 149 148 145 Potassium 3.4 L Chloride 117 H Carbon Dioxide 20 Anion Gap 8 BUN 37 H Creatinine 1.0 Estimated Creat Clear 32.92 Estimated GFR 56 Glucose 183 H Calcium 8.7 Magnesium 1.9 Total Bilirubin 0.5 AST 54 H ALT 60 H Alkaline Phosphatase 118 C-Reactive Protein 24.2 H Total Protein 5.9 L Albumin 3.0 L Lab Acknowledgement 10/26/24 10/26/24 10/26/24 05:56 09:16 10:05 WBC RBC Hgb Hct MCV MCH MCHC RDW Coeff of Bertin Plt Count Neut % (Auto) Lymph % (Auto) [place] % (Auto) Eos % (Auto) Baso % (Auto) Neut # (Auto) Lymph # (Auto) [place] # (Auto) Eos # (Auto) Baso # (Auto) Abs Immat Gran (auto) Imm/Tot Granulo (auto) VBG pH VBG pCO2 VBG pO2 VBG HCO3 Sodium 147 144 Potassium Chloride Carbon Dioxide Anion Gap BUN Creatinine Estimated Creat Clear Estimated GFR Glucose Calcium Magnesium 2.0 Total Bilirubin AST ALT Alkaline Phosphatase C-Reactive Protein Total Protein Albumin Lab Acknowledgement Test Added Ordering Physician: Lluvia Wylie M.D. Date of Service: 10/26/24 Procedure(s): CT angio chest PE protocol Accession Number(s): [id number] cc: Dat Smith M.D.; Lluvia Wylie M.D.~ For Patients: As a result of the Century Cures Act, medical imaging exams and procedure reports are released immediately into your electronic medical record. You may view this report before your referring provider. If you have questions, please contact your health care provider. INDICATION: Tachycardia. Respiratory failure. Recent lichen Crystal. Clinical signs and symptoms of pulmonary embolus. COMPARISON: A noncontrast chest CT dated October 23, 2024. TECHNIQUE: : CT examination of the chest was performed with the uneventful intravenous administration of 95 cc of Isovue 370 while thin axial sections were obtained from above the apices of the lungs to the lung bases. The examination was timed as a pulmonary artery angiogram. Please note that all CT scans at this facility use dose modulation, iterative reconstruction, and/or weight-based dosing when appropriate to reduce radiation dose to as low as reasonably achievable. FINDINGS: : HEART and MEDIASTINUM: Heart size normal. No mediastinal or hilar adenopathy or mass. No pericardial effusion. ESOPHAGUS: Hiatal hernia. Patulous and mildly dilated esophagus. It is partially fluid-filled up to near the thoracic inlet. This puts the patient at substantial risk for aspiration. PULMONARY ARTERIAL CIRCULATION: Limited by motion but no large central pulmonary emboli identified. LUNGS and PLEURAL SPACES: Limited by motion. Right lung shows patchy atelectasis and a probably inflammatory ground-glass opacity in the right upper lobe.Small nodules would likely be obscured due to motion. Patchy multifocal ground-glass on the left with multiple tree-in-bud nodular opacities. This is consistent with infectious bronchiolitis and developing pneumonia in the appearance has somewhat worsened. There is a small amount of fluid in the bronchi indicating that the left-sided findings may be due to aspiration. VISUALIZED UPPER ABDOMEN: No acute appearing upper abdominal abnormality OSSEOUS STRUCTURES: Demineralization, degenerative changes and compression of a mid to upper thoracic vertebral body essentially unchanged TUBES and LINES: None. IMPRESSION: 1. Limited by motion but no indication of large pulmonary embolus. 2. Multifocal airspace process on the left probably a combination of infectious bronchiolitis and bronchopneumonia worsened since previously. No cavitation. No pleural effusion or pneumothorax on either side. Minimal inflammatory opacity in the right upper lobe, worsened. There is a small amount of fluid in the bronchial system on the left raising the possibility that the left-sided pneumonitis due to aspiration. 3. Patulous, mildly dilated and fluid-filled esophagus extending towards the thoracic inlet. This puts the patient at significant risk for aspiration. 4. Other nonacute appearing findings as above Please note that all CT scans at this facility use dose modulation, iterative reconstruction, and/or weight-based dosing when appropriate to reduce radiation dose to as low as reasonably achievable. Dictated by Ross Knott MD @ 10/26/2024 8:46:53 AM (Electronically Signed)
[2024-10-26] MEDS: LORazepam 0.5 MG TABLET PO (20:00)
[2024-10-26] MEDS: QUETIAPINE 100 MG TABLET 300 MG PO (20:00)
[2024-10-26] MEDS: ENOXAPARIN 30 MG/0.3ML INJ SUBCUT (20:00)
[2024-10-26 20:08] LABS: Sodium* 149 mmol/L (135-149)
[2024-10-26] MEDS: LORazepam 2 MG/ML inj 0.5 MG IVP (23:39)
[2024-10-27] VITALS (17 sets, daily range): BP systolic 127–161; BP diastolic 60–114; PULSE 93–114; RESP 16–34; TEMP 36.6–37.4; O2SAT 88–95
[2024-10-27] MEDS: MORPHINE 2 MG/ML inj IVP ×4 (02:22→14:56)
[2024-10-27] MEDS: LORazepam 0.5 MG TABLET PO ×2 (03:42→14:42)
[2024-10-27] MEDS: LACTATED RINGERS 1000 ML 1,000 ML 75 ML IV ×2 (03:42→20:47)
[2024-10-27] MEDS: PIPERACILLIN/TAZOBACTAM 3.375 GM in 0.9 % SODIUM CHLORIDE Mini-bag 100 ML IVPB ×3 (05:19→23:26)
--- NOTE | 2024-10-27 06:53 | PC.NURSE ---
End of shift summary: Pt has been alert and VSS with exception to fluctuating respiratory rate overnight. Blood sugar @ HS was 96. Na recheck @ 1999 was 149. Pt slept well for first half of shift but became increasingly restless as the night went on. During her periods of restlessness, respiratory rate jumps up to the 30s-40s and HR is in the 100s. PRN Ativan and PRN Morphine were given throughout the night for air hunger and agitation. PO meds were crushed in applesauce & pt seemed to tolerate well but has a delayed swallow. Liquids need to be mildly thickened per MECHANICAL PROJECT ENGINEER. PIV in right FA is infusing LR @ 75 mL/hr. Werner catheter is intact & patent; total output: 1850mL overnight. Pt becomes very combative and swats/pinches at staff with any repositioning or attempt at cares. While she was asleep, she kept the BP cuff and pulse oximeter on but while awake she wiggles them off. Lung sounds have rhonchi throughout. No edema noted. She does have scattered self-inflicted scratches on her arms as well as bruising to left lower leg. ?
[2024-10-27 06:54] LABS: Basophils Percent Auto 0.3 % (0.0-3.0); Eosinophils Percent Auto 4.9 % (0.0-7.0); Hematocrit 33.5 % (33.0-51.0); Hemoglobin* 10.2 gm/dL (12.0-16.0); Immature Granulocytes Pct Auto 2.4 %; Lymphocytes Percent Auto 10.7 % (20-44); Mean Corpuscular HGB Conc 30 gm/dL (32-36); Mean Corpuscular Hemoglobin 27 pg (26-34); Mean Corpuscular Volume 90 fL (80-100); Neutrophils Percent Auto 75.7 % (42.0-72.0); Platelet Count* 218 K/uL (140-440); RDW Coefficient of Variation % 14.4 % (11.5-15.5); Red Blood Count 3.72 m/uL (4.00-5.20); White Blood Count* 12.95 K/uL (4.50-11.00)
[2024-10-27 06:57] LABS: HCO3 VBG 25 mmol/L (21-28); PCO2 VBG 42 mmHG (40-50); PO2 VBG < 30.1 mmHG (25-47); Slide Review Reflex No; pH VBG 7.387 (7.32-7.43)
[2024-10-27 07:30] LABS: Chloride* 122 mmol/L (96-114); Potassium* 3.9 mmol/L (3.6-5.1); Sodium* 154 mmol/L (135-149)
[2024-10-27 07:32] LABS: Estimated Glomerular Filt Rate 56 ml/min
[2024-10-27 07:33] LABS: Anion Gap 7 mEq/L (7-15); Blood Urea Nitrogen* 31 mg/dL (7-30); Calcium* 9.1 mg/dL (8.4-10.6); Carbon Dioxide* 25 mmol/L (20-32); Glucose* 93 mg/dL (60-115)
[2024-10-27] MEDS: Linaclotide [Linzess] 145 mcg capsule PO (08:29)
[2024-10-27] MEDS: LEVOTHYROXINE 25 MCG TABLET PO (08:29)
[2024-10-27] MEDS: LORazepam 2 MG/ML inj 0.5 MG IVP ×4 (09:41→23:31)
[2024-10-27] MEDS: POTASSIUM CHLORIDE 10 MEQ CAPSULE ER 20 MEQ PO (09:45)
[2024-10-27] MEDS: guaiFENesin 600 MG TAB.ER.12H 1200 MG PO (09:45)
[2024-10-27] MEDS: ESCITALOPRAM 10 MG TABLET 20 MG PO (09:45)
[2024-10-27] MEDS: BUSPIRONE 10 MG TABLET 15 MG PO (09:45)
[2024-10-27] MEDS: SODIUM CHLORIDE 0.9 % (FLUSH) 10 ML SYRINGE 5 ML IVF ×2 (09:46→20:39)
[2024-10-27] MEDS: QUETIAPINE 100 MG TABLET PO (09:46)
[2024-10-27] MEDS: VANCOMYCIN 1 GM/200 ML 1 GM/200 ML PIGGYBACK IVPB (11:08)
--- NOTE | 2024-10-27 14:07 | PC.SOCIAL ---
Addendum entered by DAYNA Hawley 10/27/24 15:30: [facility] Maria T Barrera, who explained that a garcia of the court needs to have a Limited Treatment Order approved by the Department of Health in order to initiate hospice care. Pt does not currently have this order completed. Maria T explained the need for a physician letter in support of limited treatment and what information needs to be included to physician. When this letter is completed, it will be secure emailed to the guardian at [email or web address] Hospice can not be arranged in advance of this order being granted. It is likely to be completed tomorrow by [facility] if MD letter is submitted to guardicatrachita this afternoon. marquetry worker to follow up as needed. Original Note: Discharge planning: Per MD request to [facility] pt [facility] to [facility] with [facility] services, left messages with [facility] worker Briseyda Ortiz [phone] and guardian Danica Colon [phone], requesting call back regarding d/c plan. marquetry worker to discuss hospice agency options with the appropriate decision maker to arrange for hospice. Hospice agency will also need paperwork indicating legal decision maker for pt. jail is [place], customer contact representative director Anuel [phone]. marquetry worker to follow up as needed.
--- NOTE | 2024-10-27 14:45 | P.IMPN_ITS ---
Progress Note: A&P Assessment and plan (1) Hypernatremia: Problem details: - 10/26 resolved with D5W overnight. Transitioning to LR for maintenance fluid today. Recheck sodium this evening. - 10/27 again hypernatremic. Status: Acute (2) Respiratory failure: Problem details: Upon admission: - resting room air oxygen saturations in the 80s with tachypnea - acute hypoxemic respiratory failure due to pneumonia - 10/26 tachypneic and less responsive today, using accessory muscles, still oxygenating well. Obtained repeat chest CT which showed worsening pneumonia, no PE. Status: Resolved (3) Pneumonia: Problem details: -CT scan of chest, abdomen, pelvis 08/22/2025: Centrilobular nodularity throughout the left lung with patchy consolidation in the left lower lobe. This is concerning for pneumonia/infectious bronchiolitis. Aspiration is also in the differential, but less likely considering distribution. -IV ceftriaxone and IV azithromycin administered in the emergency department. Continue the same on the floor for now. -in the context of the patient's condition this is highly suspicious for possible aspiration. Will ask speech pathology to assess. - 10/26 worsening pneumonia. Expanded antibiotics to Zosyn plus vancomycin. Obtain MRSA swab. If this is negative can discontinue vanco. Continue in CCU status for sepsis due to pneumonia. Speech pathology attempted assessment today. Will still need trial with thickened liquids. Status: Acute (4) Urinary retention: Problem details: -acute urinary retention, possibly related to oxycodone use; oxycodone stopped - 10/26 due to hypernatremia and need for strict I's and O's, did not discontinue urinary catheter yesterday after all. Status: Acute (5) Abnormal bruising: Status: Acute (6) Left foot pain: Problem details: -onset this past 10/18/2024, without known trauma Status: Acute (7) Acute kidney injury: Problem details: -baseline creatinine of 1 and BUN of 39. On 10/23/2024 creatinine is 1.5 and BUN is 62. Likely due to dehydration. Possibly also related to ibuprofen that was started on 10/22/2024 at 600 mg q.i.d. 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 Stop ibuprofen. -somewhat worse, monitor Status: Acute (10) Dehydration: Problem details: -creatinine and BUN are markedly elevated from baseline, improving -monitor Status: Acute (11) Constipation: Problem details: acute on chronic -bisacodyl supp Status: Acute (12) Hypokalemia: Problem details: Since patient is having potential difficulty with swallowing and altered mental status, will replace potassium via IV. Status: Chronic Plan Per decision from patient's legal guardian, Danica Colon, transition to comfort cares only. Pursue home with hospice. I spoke with SW who will help facilitate this. Time Spent With Patient Total time spent: Today I spent 55 minute seeing the patient, discussing advanced care planning with the patient's family and guardian, reviewing Expanse and EPIC notes/di agnostics/labs, discussing the care plan with our care team that includes social work, PT/OT, pharmacy, RT, custodial and documenting my impressions and plan in the medical record. Subjective Time Seen by Provider: 07:35 Date Seen: 10/27/24 Interval history: Ktaie has times where she is more awake and she is agitated during these times. This happened overnight and this morning. Her sodium is elevated again today despite appropriate IVF for hydration. I discussed this with her brother and his who were there again today. I also spoke with the patient's guardian, Danica Colon, who is currently traveling, so she gave me her cell, . I reviewed this hospital stay's events and findings. We discussed comfort cares vs ongoing treatment of aspiration pneumonia and the high likelihood of recurrent aspiration. I noted that the patient's brother and staff at the patient's home have supported the idea of returning there with comfort cares/hospice. Danica agreed and gave me a verbal okay to pursue comfort cares and return home on hospice. Exam Narrative: Exam Narrative: General: Agitated, nonverbal. No pallor. No jaundice. Oropharynx: Clear. Mucous membranes moist. Cardiovascular: Regular rate and rhythm. No murmurs, gallops, or rubs. Respiratory: Rhonchi throughout, no crackles or wheezes. Abdomen: Bowel sounds present. Soft, nondistended, nontender. Extremities: No lower extremity edema. Good capillary refill. Const: Vital Signs, click to edit/add: Vital Signs - 24 hr 10/26/24 15:00 10/26/24 15:00 10/26/24 16:00 Temperature Pulse Rate [Pulse Oximeter] 122 H 106 H Respiratory Rate 28 H 28 H 20 Blood Pressure [L FA] Blood Pressure [Ri ght Calf] Pulse Oximetry 93 93 Oxygen Delivery Me thod Room Air Room Air Oxygen Flow Rate 0 10/26/24 17:56 10/26/24 20:00 10/26/24 22:10 Temperature 98.0 F 99.3 F 97.9 F Pulse Rate [Pulse Oximeter] 101 H 116 H 100 Respiratory Rate 18 44 H 16 Blood Pressure [L FA] Blood Pressure [Ri ght Calf] 119/76 Pulse Oximetry 95 94 93 Oxygen Delivery Me thod Room Air Room Air Room Air Oxygen Flow Rate 0 10/26/24 23:00 10/26/24 23:00 10/27/24 00:00 Temperature 98 F Pulse Rate [Pulse Oximeter] 100 103 H Respiratory Rate 16 16 20 Blood Pressure [L FA] Blood Pressure [Ri ght Calf] 127/60 Pulse Oximetry 94 92 Oxygen Delivery Me thod Room Air Room Air Oxygen Flow Rate 10/27/24 02:00 10/27/24 02:20 10/27/24 03:00 Temperature 97.9 F Pulse Rate [Pulse Oximeter] 97 97 Respiratory Rate 18 28 H 20 Blood Pressure [L FA] Blood Pressure [Ri ght Calf] 142/72 H Pulse Oximetry 92 Oxygen Delivery Me thod Room Air Oxygen Flow Rate 10/27/24 04:00 10/27/24 06:00 10/27/24 07:00 Temperature 98.9 F 98.9 F Pulse Rate [Pulse Oximeter] 111 H 114 H 106 H Respiratory Rate 34 H 28 H 20 Blood Pressure [L FA] Blood Pressure [Ri ght Calf] 153/98 H Pulse Oximetry 95 94 Oxygen Delivery Me thod Room Air Room Air Oxygen Flow Rate 0 10/27/24 07:00 10/27/24 07:57 10/27/24 10:00 Temperature 98.6 F Pulse Rate [Pulse Oximeter] 102 H 99 Respiratory Rate 20 20 20 Blood Pressure [L FA] 161/114 H 160/113 H Blood Pressure [Ri ght Calf] Pulse Oximetry 91 92 88 Oxygen Delivery Me thod Room Air Room Air Room Air Oxygen Flow Rate 10/27/24 11:00 10/27/24 12:00 Temperature 98.6 F Pulse Rate [Pulse Oximeter] 100 100 Respiratory Rate 20 20 Blood Pressure [L FA] 141/93 H Blood Pressure [Ri ght Calf] Pulse Oximetry 92 Oxygen Delivery Me thod Room Air Oxygen Flow Rate Labs Labs: Laboratory Results - last 24 hr 10/26/24 10/27/24 19:50 06:33 WBC 12.95 H RBC 3.72 L Hgb 10.2 L Hct 33.5 MCV 90 MCH 27 MCHC 30 L RDW Coeff of Bertin 14.4 Plt Count 218 Neut % (Auto) 75.7 H Lymph % (Auto) 10.7 L [place] % (Auto) 6.0 Eos % (Auto) 4.9 Baso % (Auto) 0.3 Neut # (Auto) 9.80 H Lymph # (Auto) 1.40 [place] # (Auto) 0.80 Eos # (Auto) 0.60 H Baso # (Auto) 0.00 Abs Immat Gran (auto) 0.30 Imm/Tot Granulo (auto) 2.4 VBG pH 7.387 VBG pCO2 42 VBG pO2 < 30.1 VBG HCO3 25 Sodium 149 154 H Potassium 3.9 Chloride 122 H Carbon Dioxide 25 Anion Gap 7 BUN 31 H Creatinine 1.0 Estimated Creat Clear 32.30 Estimated GFR 56 Glucose 93 Calcium 9.1
[2024-10-27] MEDS: DOCUSATE SODIUM 100 MG CAPSULE PO (14:52)
[2024-10-27] MEDS: MORPHINE 10 MG/0.5 ML ORAL SOLN PO (15:48)
[2024-10-27] MEDS: MAGNESIUM HYDROXIDE 30 ML ORAL.SUSP PO (15:48)
[2024-10-27] MEDS: 5 % DEXTROSE 1000 ML 1,000 ML 300 ML IV ×2 (17:42→21:28)
--- NOTE | 2024-10-27 19:44 | PC.NURSE ---
Nursing Care Hours: [id number] Pt this shift took pills whole in pudding without issue. Attempts to encourage fluid intake but pt would push away. Pt increasingly restless in bed, turning perpendicular to bed and requiring repositioning. Ativan IV effective and calming pt. Oral Ativan not effective. HTN with BP d/t tensing up. While rested on Ativan, only mild HTN noted. LS coarse crackles but stable on RA. Fluids running. Afternoon ABX not given because pt switched to comfort cares but d/t required paperwork pending, restarted all treatments and assessments. No BM but bowel aid given. Pt [facility] staff visited and discussed with database report writer their thoughts on abdominal pain aeb pt not wanting to sit up and appears uncomfortable when doing so and pt whimpering and restless. Pt bowels sounds hypoactive but database report writer heard pt passing gas.
[2024-10-27] MEDS: ENOXAPARIN 30 MG/0.3ML INJ SUBCUT (20:39)
[2024-10-27 21:31] LABS: Sodium* 149 mmol/L (135-149)
[2024-10-28] VITALS (11 sets, daily range): BP systolic 113–146; BP diastolic 67–78; PULSE 75–95; RESP 18–24; TEMP 36.8–37.2; O2SAT 89–91
[2024-10-28] MEDS: 5 % DEXTROSE 1000 ML 1,000 ML 300 ML IV ×3 (01:26→09:03)
[2024-10-28] MEDS: LORazepam 2 MG/ML inj 0.5 MG IVP ×2 (03:00→06:40)
[2024-10-28] MEDS: PIPERACILLIN/TAZOBACTAM 3.375 GM in 0.9 % SODIUM CHLORIDE Mini-bag 100 ML IVPB (05:29)
--- NOTE | 2024-10-28 06:49 | PC.NURSE ---
End of shift summary: Pt has been alert with cares otherwise slept well throughout the shift. She is non-verbal baseline. Pt was not cooperative with oral HS meds so they were not administered. PRN IV Ativan frequency increased from q6H to q2H d/t pt agitation; last given @ 0640. PIV in right FA infusing LR @ 75 mL/hr and D5W @ 300 mL/hr. IV Zosyn q6H. Werner is patent & draining; total output was 1150 mL overnight. Blood sugars ordered q4H as pt allows. Overnight they were 130 > 121. Repositioned overnight as she would allow but she tends to gravitate back to laying on her right side. LS are coarse with crackles, O2 maintained > 88% on RA. No signs of distress overnight unless she was being touched and cares were being provided. No BM overnight but passing gas. Droplet precautions ongoing for PNX.?
[2024-10-28 07:03] LABS: Chloride* 110 mmol/L (96-114)
[2024-10-28 07:04] LABS: Potassium* 3.9 mmol/L (3.6-5.1); Sodium* 141 mmol/L (135-149)
[2024-10-28 07:06] LABS: Creatinine* 0.9 mg/dL (0.5-1.5); Estimated Glomerular Filt Rate 64 ml/min
[2024-10-28 07:07] LABS: Anion Gap 5 mEq/L (7-15); Blood Urea Nitrogen* 24 mg/dL (7-30); Calcium* 8.3 mg/dL (8.4-10.6); Carbon Dioxide* 26 mmol/L (20-32); Glucose* 123 mg/dL (60-115)
[2024-10-28] MEDS: LACTATED RINGERS 1000 ML 1,000 ML 75 ML IV (08:40)
[2024-10-28] MEDS: QUETIAPINE 100 MG TABLET PO (09:10)
[2024-10-28] MEDS: BUSPIRONE 10 MG TABLET 15 MG PO (09:10)
[2024-10-28] MEDS: Linaclotide [Linzess] 145 mcg capsule PO (09:10)
[2024-10-28] MEDS: POTASSIUM CHLORIDE 10 MEQ CAPSULE ER 20 MEQ PO (09:10)
[2024-10-28] MEDS: LEVOTHYROXINE 25 MCG TABLET PO (09:10)
[2024-10-28] MEDS: ESCITALOPRAM 10 MG TABLET 20 MG PO (09:10)
--- NOTE | 2024-10-28 10:47 | PC.SOCIAL ---
Discharge planning: Left message for pt's guardian Danica Starr requesting call back with an update on court process for requesting order to start hospice care. Awaiting call back.
--- NOTE | 2024-10-28 11:26 | P.IMPN_ITS ---
Progress Note: A&P Assessment and plan (1) Respiratory failure: Problem details: Upon admission: - resting room air oxygen saturations in the 80s with tachypnea - acute hypoxemic respiratory failure due to pneumonia - 10/26 tachypneic and less responsive today, using accessory muscles, still oxy genating well. Obtained repeat chest CT which showed worsening pneumonia, no PE. Remains on room air, has not tolerated Oxy Mask, saturations 88-91%. Throughout hospital course, has been quite sonorous, continues with coarse breath sounds, labored breathing Status: Resolved (2) Pneumonia: Problem details: -CT scan of chest, abdomen, pelvis 08/22/2025: Centrilobular nodularity throughout the left lung with patchy consolidation in the left lower lobe. This is concerning for pneumonia/infectious bronchiolitis. Aspiration is also in the differential, but less likely considering distribution. -IV ceftriaxone and IV azithromycin administered in the emergency department. Continue the same on the floor for now. -in the context of the patient's condition this is highly suspicious for possible aspiration. Will ask speech pathology to assess. - 10/26 worsening pneumonia. Expanded antibiotics to Zosyn plus vancomycin. Obtain MRSA swab. If this is negative can discontinue vanco. Continue in CCU status for sepsis due to pneumonia. Speech pathology attempted assessment today. Will still need trial with thickened liquids. Has been treated with IV Zosyn and vancomycin. IV infiltrated on 10/28/2024. Patient has shown discomfort and agitation when IV is placed or resecured, attempting to scratch or lash out at staff. Instead of attempting to replace yet another IV, increasing her discomfort and agitation, we will proceed with oral antibiotic therapy, monitoring for response. Status: Acute (3) Hypernatremia: Problem details: - 10/26 resolved with D5W overnight. Transitioning to LR for maintenance fluid today. Recheck sodium this evening. - 10/27 again hypernatremic. Sodium noted to increase to 157 on 10/24, further increasing to 161 on 10/25. At that time patient was placed under critical care status and started on D5 fluids with q.1 hour sodium checks. Resolved with recurrent episode of sodium of 154 on 10/27. Sodium has since returned to normal, currently 141 on 10/28. Okay for med surg status. Status: Acute (4) Urinary retention: Problem details: -acute urinary retention, possibly related to oxycodone use; oxycodone stopped - 10/26 due to hypernatremia and need for strict I's and O's, did not discontinue urinary catheter yesterday after all. Status: Acute (5) Abnormal bruising: Problem details: Noted on admission Status: Acute (6) Left foot pain: Problem details: -onset 10/18/2024, without known trauma. Imaging without acute findings/abnormalities Status: Acute (7) Acute kidney injury: Problem details: -baseline creatinine of 1 and BUN of 39. On 10/23/2024 creatinine is 1.5 and BUN is 62. Likely due to dehydration. Possibly also related to ibuprofen that was started on 10/22/2024 at 600 mg q.i.d. 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 Has an appointed guardian. On 10/28, awaiting [facility] for change in cares. Status: Chronic (9) Elevated transaminase level: Problem details: -possibly related to use of ibuprofen. Stop ibuprofen. Down trending, no longer following. Bilirubin unremarkable. Status: Acute (10) Dehydration: Problem details: -creatinine and BUN are markedly elevated from baseline, improving -monitor Has received IV fluids, maintenance as well as bolus in setting of hypernatremia. Creatinine and BUN normalized. Status: Acute (11) Constipation: Problem details: acute on chronic -bisacodyl supp as needed Status: Acute (12) Hypokalemia: Problem details: Since patient is having potential difficulty with swallowing and altered mental status, will replace potassium via IV. Potassium has remained stable at 3.9 Status: Chronic Plan 10/28 continuing with oral antibiotics for community-acquired pneumonia as IV has infiltrated. Leukocytosis is present. Afebrile. Continues to be hypoxic with labored breathing, sonorous, coarse breath sounds. Does not tolerated supplemental oxygen, grabbing at mask, pulling from face. VBG has normalized. Patient continues to sleep throughout most of the day, no meaningful interactions with staff or family. Oral intake is inconsistent. Easily agitated, showing signs of discomfort with daily cares, lab draws, IV maintenance. Despite above cares, suspect outcome to be futile. Would be appropriate for comfort cares and returning to [facility] with hospice. Awaiting [facility] judgment for change in cares. Time Spent With Patient Total time spent: Today I spent 60 minutes seeing the patient, discussing the patient with ER staff, reviewing Expanse and Epic notes/diagnostics, discussing the care plan with our team that includes social work, PT/OT, pharmacy, RT, [facility] and documenting my impressions and plan in the medical record. Subjective Date Seen: 10/28/24 Interval history: Patient is seen lying in bed, sleeping, this morning. Continues with labored breathing, sonorous, coarse breath sounds. Remains afebrile. Vitally stable. During morning team meeting, discussed awaiting [facility] decision for change in level of cares. Current goal is to change her level of care to comfort cares. Plan would be to return her to her [facility] with hospice. Patient's guardian and brother are aware of this process and in agreement. Exam Narrative: Exam Narrative: PHYSICAL EXAM General: Sleeping on right side, sonorous Cardiovascular: RRR Pulmonary: Sonorous, coarse breath sounds, mildly dyspneic Neurological: Sleeping Skin: Warm, dry. Const: Vital Signs, click to edit/add: Vital Signs - 24 hr 10/27/24 12:00 10/27/24 15:00 10/27/24 17:48 Temperature 98.6 F 99.3 F Pulse Rate [Pulse Oximeter] 100 102 H 95 Respiratory Rate 20 21 Blood Pressure [L FA] 141/93 H 149/92 H Blood Pressure [Ri ght Calf] Pulse Oximetry 92 93 Oxygen Delivery Me thod Room Air Room Air Oxygen Flow Rate 10/27/24 19:00 10/27/24 20:00 10/27/24 22:00 Temperature 98.1 F 98.4 F Pulse Rate [Pulse Oximeter] 95 95 93 Respiratory Rate 24 24 16 Blood Pressure [L FA] Blood Pressure [Ri ght Calf] 139/78 127/80 Pulse Oximetry 94 90 Oxygen Delivery Me thod Room Air Room Air Oxygen Flow Rate 10/27/24 23:00 10/28/24 00:00 10/28/24 02:00 Temperature 99 F 99 F Pulse Rate [Pulse Oximeter] 93 93 92 Respiratory Rate 16 24 22 Blood Pressure [L FA] Blood Pressure [Ri ght Calf] 131/78 128/68 Pulse Oximetry 91 89 Oxygen Delivery Me thod Room Air Room Air Oxygen Flow Rate 10/28/24 03:00 10/28/24 04:00 10/28/24 06:00 Temperature 98.9 F 98.2 F Pulse Rate [Pulse Oximeter] 94 91 91 Respiratory Rate 22 18 18 Blood Pressure [L FA] Blood Pressure [Ri ght Calf] 146/74 H 131/72 Pulse Oximetry 89 91 Oxygen Delivery Mo thod Room Air Room Air Oxygen Flow Rate 0 10/28/24 08:35 10/28/24 08:35 10/28/24 10:00 Temperature Pulse Rate [Pulse Oximeter] 91 88 75 Respiratory Rate 22 22 20 Blood Pressure [L FA] Blood Pressure [Ri ght Calf] 115/68 Pulse Oximetry 91 91 Oxygen Delivery Mo thod Room Air Room Air Oxygen Flow Rate 0 0 Labs Labs: Laboratory Results - last 24 hr 10/27/24 10/28/24 20:58 06:35 Sodium 149 141 Potassium 3.9 Chloride 110 Carbon Dioxide 26 Anion Gap 5 L BUN 24 Creatinine 0.9 Estimated Creat Clear 32.30 Estimated GFR 64 Glucose 123 H Calcium 8.3 L
[2024-10-28] MEDS: SULFA/TRIMETHOPRIM 400 MG/80 MG TABLET 1 TAB PO (13:04)
--- NOTE | 2024-10-28 14:48 | REH.SLP ---
Spoke with MD and RN. Patient is not appropriate for speech therapy today. RN reports she took a few bites of applesauce with meds and then refused anything more. Minimal po intake. Still awaiting status on goals of care from [facility]. Patient remains at a high aspiration risk.
--- NOTE | 2024-10-28 17:03 | PC.SOCIAL ---
Social work: wharf worker had secure emailed MD letter in support of LImited Treatment to pt's guardian Danica Matty. Resent this letter this morning when Danica called to say she had not received it. At Danica's request, sent this letter to [facility] guardianship services through secure email. At 4:40, received email from Danica with letter from court stating the limited treatment has been granted. Copy of this order is in the patient's chart. wharf worker to follow up as needed.
[2024-10-28] MEDS: LORazepam 0.5 MG TABLET PO (18:30)
--- NOTE | 2024-10-28 18:55 | PC.NURSE ---
Pt unaware of setting, self, and medical and home care givers. Meds crushing in 1-2 bites of applesauce. Pt self positions to right side. Werner patent, draining pale yellow urine. No BM on shift. Received notice that State agreed to transition to Hospice. Plan for SW to set up social work and pt will then [facility].
[2024-10-28] MEDS: QUETIAPINE 100 MG TABLET 300 MG PO (20:31)
[2024-10-29] MEDS: LORazepam 0.5 MG TABLET PO ×3 (02:48→12:26)
--- NOTE | 2024-10-29 06:39 | PC.NURSE ---
Shift note ([id number]): Patient on comfort cares. Remained in bed. Medications given crushed in small amount of applesauce. Given PRN Lorazepam for restlessness. Indwelling catheter patent and draining clear pale-yellow urine.?
[2024-10-29 07:00] VITALS: RESP 20
[2024-10-29] MEDS: MORPHINE 10 MG/0.5 ML ORAL SOLN PO ×2 (09:31→11:15)
--- NOTE | 2024-10-29 09:58 | P.DS_ITS ---
DS: Providers Provider Date Seen: 10/29/24 Date of admission: 10/23/24 17:56 Primary care physician: Dat Smith MD Admitting Clinician: Lorraine Troy MD Consults: 10/23/24 17:56 Consult to Occupational Therapy [CONS] Routine Comment: Reason(s) for OT Consult:: Evaluate and Treat Any Restrictions?:: No Restrictions Consult to Physical Therapy [CONS] Routine Comment: Reason(s) for PT Consult:: Evaluate and Treat Any Restrictions?:: No Restrictions Consult to Respiratory Therapy [CONS] Routine Comment: Reason(s) for RT Consult:: Consult Consult to System Engineer [CONS] Routine Comment: Reason for Consult:: Discharge Planning Needs Consult to Speech Therapy [CONS] Routine Comment: Reason(s) for Speech Consult:: Swallowing Difficulty Attending Physician on discharge: Kera Sandoval [facility], [facility] [place] Hospitalist Date of Discharge: 10/29/24 DS: Diagnosis Discharge Diagnosis (1) Respiratory failure: Status: Resolved Problem details: Upon admission: - resting room air oxygen saturations in the 80s with tachypnea - acute hypoxemic respiratory failure due to pneumonia - 10/26 tachypneic and less responsive today, using accessory muscles, still oxygenating well. Obtained repeat chest CT which showed worsening pneumonia, no PE. Remains on room air, has not tolerated Oxy Mask, saturations 88-91%. Throughout hospital course, has been quite sonorous, continues with coarse breath sounds, labored breathing (2) Pneumonia: Status: Acute Problem details: -CT scan of chest, abdomen, pelvis 08/22/2025: Centrilobular nodularity throughout the left lung with patchy consolidation in the left lower lobe. This is concerning for pneumonia/infectious bronchiolitis. Aspiration is also in the differential, but less likely considering distribution. -IV ceftriaxone and IV azithromycin administered in the emergency department. Continue the same on the floor for now. -in the context of the patient's condition this is highly suspicious for possible aspiration. Will ask speech pathology to assess. - 10/26 worsening pneumonia. Expanded antibiotics to Zosyn plus vancomycin. Obtain MRSA swab. If this is negative can discontinue vanco. Continue in CCU status for sepsis due to pneumonia. Speech pathology attempted assessment today. Will still need trial with thickened liquids. Has been treated with IV Zosyn and vancomycin. IV infiltrated on 10/28/2024. Patient has shown discomfort and agitation when IV is placed or resecured, attempting to scratch or lash out at staff. Instead of attempting to replace yet another IV, increasing her discomfort and agitation, we will proceed with oral antibiotic therapy, monitoring for response. Prior to discharge, on 10/28/24, [facility] provided decision to change course of care to comfort cares. Discontinued further antibiotic therapies. Patient returning to [facility] with hosp[facility] cares. (3) Hypernatremia: Status: Resolved Problem details: - 10/26 resolved with D5W overnight. Transitioning to LR for maintenance fluid today. Recheck sodium this evening. - 10/27 again hypernatremic. Sodium noted to increase to 157 on 10/24, further increasing to 161 on 10/25. At that time patient was placed under critical care status and started on D5 fluids with q.1 hour sodium checks. Resolved with recurrent episode of sodium of 154 on 10/27. Sodium has since returned to normal, currently 141 on 10/28. Okay for med surg status. Resolved prior to discharge, returning to [facility] with [facility] cares. (4) Urinary retention: Status: Acute Problem details: -acute urinary retention, possibly related to oxycodone use; oxycodone stopped - 10/26 due to hypernatremia and need for strict I's and O's, did not discontinue urinary catheter yesterday after all. Patient returning to [facility] with [facility] cares, urinary catheter discontinued. (5) Abnormal bruising: Status: Acute Problem details: Noted on admission (6) Left foot pain: Status: Acute Problem details: -onset 10/18/2024, without known trauma. Imaging without acute findings/abnormalities. Returning to [facility] cares. (7) Acute kidney injury: Status: Resolved Problem details: -baseline creatinine of 1 and BUN of 39. On 10/23/2024 creatinine is 1.5 and BUN is 62. Likely due to dehydration. Possibly also related to ibuprofen that was started on 10/22/2024 at 600 mg q.i.d. - 10/24 Cr improving with rehydration Creatinine stabilized, 0.9. Returning to [facility] cares. (8) Unspecified intellectual disabilities: Status: Chronic Problem details: secondary to [facility] of the [facility]. Has an appointed guardian. On 10/28, awaiting [facility] judgment for change in cares. Approved for comfort cares on 10/28/24, returning to [facility] cares. (9) Elevated transaminase level: Status: Acute Problem details: -possibly related to use of ibuprofen. Stop ibuprofen. Down trending, no longer following. Bilirubin unremarkable. (10) Dehydration: Status: Resolved Problem details: -creatinine and BUN are markedly elevated from baseline, improving -monitor Has received IV fluids, maintenance as well as bolus in setting of hypernatremia. Creatinine and BUN normalized. Returning to [facility] with [facility]sp[facility] cares, regular diet as tolerated for comfort. (11) Constipation: Status: Acute Problem details: acute on chronic -bisacodyl supp as needed (12) Hypokalemia: Status: Chronic Problem details: Since patient is having potential difficulty with swallowing and altered mental status, will replace potassium via IV. Potassium has remained stable at 3.9 DS: Summary Hospital Course Hospital Course: [age] year old female was admitted to the medical floor for management acute hypoxic respiratory failure in setting of pneumonia. Course of care and details as noted above. Discharged back to [facility] with hosp[facility] cares following decision from [facility] to change cares to comfort cares on 10/28/24. Remainder of chronic medical comorbidities were monitored and managed with home medications. Status at Discharge Functional status at discharge: bed bound Overall status at discharge: patient is not back to baseline Time Spent with Patient Time attestation: Total time spent providing and/or coordinating discharge services: Time spent: Greater than 30 minutes Exam Narrative: Exam Narrative: PHYSICAL EXAM General: Sleeping, sonorous, labored breathing Cardiovascular: RRR Pulmonary: Sonorous, labored breathing Neurological: Sleeping Skin: Warm, dry. Const: Vital Signs, click to edit/add: Vital Signs - 24 hr 10/28/24 10:00 10/28/24 12:00 10/28/24 12:00 Temperature Pulse Rate [Pulse Oximeter] 75 75 84 Respiratory Rate 20 22 20 Blood Pressure [L FA] Blood Pressure [Ri ght Calf] 115/68 115/67 Pulse Oximetry 91 91 Oxygen Delivery Me thod Room Air Room Air Oxygen Flow Rate 0 0 10/28/24 14:25 10/28/24 15:00 10/28/24 16:00 Temperature 99.0 F Pulse Rate [Pulse Oximeter] 95 95 95 Respiratory Rate 20 20 20 Blood Pressure [L FA] 113/69 Blood Pressure [Ri ght Calf] 123/68 Pulse Oximetry 90 90 Oxygen Delivery Me thod Room Air Room Air Oxygen Flow Rate 0 0 10/29/24 07:00 Temperature Pulse Rate [Pulse Oximeter] Respiratory Rate 20 Blood Pressure [L FA] Blood Pressure [Ri ght Calf] Pulse Oximetry Oxygen Delivery Me thod Oxygen Flow Rate DS: Data Imaging CT Chest/Ab/Pelvis: Attestation: I have reviewed the pertinent imaging results. Radiologist's impression: Thyroid: Unremarkable. Cardiovascular structures: Heart size is normal. Calcification of the LAD. Thoracic aorta and main pulmonary artery are normal in caliber. Mediastinum and jia: No mass or adenopathy. Lungs and pleura: Centrilobular nodularity throughout the left lung with patchy consolidation at the left lower lobe. Scattered 4 millimeter nodules in the right lower lobe Chest wall and axilla: Calcifications in the bilateral breasts. Bones: Age indeterminate compression fracture of T6 with 90 percent height loss and 3 millimeters of retropulsion. ABDOMEN AND PELVIS: Liver: Unremarkable. Gallbladder and bile ducts: Cholelithiasis without evidence of cholecystitis. Pancreas: Unremarkable. Spleen: Unremarkable. Adrenal glands: Unremarkable. Kidneys: Right renal cyst. GI tract: No obstruction. Vascular structures: Mild aortoiliac atherosclerosis. Lymph nodes: Unremarkable. Peritoneum/Retroperitoneum/Abdominal Wall: Unremarkable. Pelvic Organs: Right ovarian cystic lesion measuring 2.7 x 2.9 x 3 centimeters (2/195, 4/173). Bones and superficial soft tissues: Screw fixation of the left femur. IMPRESSION: Centrilobular nodularity throughout the left lung with patchy consolidation in the left lower lobe. This is concerning for pneumonia/infectious bronchiolitis. Aspiration is also in the differential, but less likely considering distribution. Age-indeterminate compression deformity of T6 with 90 percent height loss. Right ovarian cystic lesion. Consider further evaluation with nonemergent pelvic ultrasound. CTA chest: Attestation: I have reviewed the pertinent imaging results. Radiologist's impression: HEART and MEDIASTINUM: Heart size normal. No mediastinal or hilar adenopathy or mass. No pericardial effusion. ESOPHAGUS: Hiatal hernia. Patulous and mildly dilated esophagus. It is partially fluid-filled up to near the thoracic inlet. This puts the patient at substantial risk for aspiration. PULMONARY ARTERIAL CIRCULATION: Limited by motion but no large central pulmonary emboli identified. LUNGS and PLEURAL SPACES: Limited by motion. Right lung shows patchy atelectasis and a probably inflammatory ground-glass opacity in the right upper lobe.Small nodules would likely be obscured due to motion. Patchy multifocal ground-glass on the left with multiple tree-in-bud nodular opacities. This is consistent with infectious bronchiolitis and developing pneumonia in the appearance has somewhat worsened. There is a small amount of fluid in the bronchi indicating that the left-sided findings may be due to aspiration. VISUALIZED UPPER ABDOMEN: No acute appearing upper abdominal abnormality OSSEOUS STRUCTURES: Demineralization, degenerative changes and compression of a mid to upper thoracic vertebral body essentially unchanged TUBES and LINES: None. IMPRESSION: 1. Limited by motion but no indication of large pulmonary embolus. 2. Multifocal airspace process on the left probably a combination of infectious bronchiolitis and bronchopneumonia worsened since previously. No cavitation. No pleural effusion or pneumothorax on either side. Minimal inflammatory opacity in the right upper lobe, worsened. There is a small amount of fluid in the bronchial system on the left raising the possibility that the left-sided pneumonitis due to aspiration. 3. Patulous, mildly dilated and fluid-filled esophagus extending towards the thoracic inlet. This puts the patient at significant risk for aspiration. 4. Other nonacute appearing findings as above Additional Comments Additional comments: Chronic and acute findings noted. Patient is discharged back [facility]. No further outpatient follow up. Discharge Plan Discharge Disposition: Home, Self-Care Date of Admission: 10/23/24 17:56 Attending Provider on Discharge: Kera Sandoval Primary Care Provider: Dat Smith Condition: Stable Anticipated Discharge Date/Time: 10/29/24 09:51 Discharge Medications: Continued Linzess 145 mcg capsule 145 mcg PO QAM calcium carbonate-vitamin D3 [Calcium 600 + D(3)] 600 mg-10 mcg (400 unit) tablet 1 tab PO QAM bisacodyl [OneLAX Bisacodyl] 10 mg suppository 10 mg WV Q72H PRN (Reason: constipation) Rx Instructions: IF NO RESULT FROM MILK OF MAG polyethylene glycol 3350 [Gavilax] 17 gram/dose powder 17 g PO BID potassium chloride 10 mEq tablet,ER particles/crystals 20 meq PO DAILY quetiapine 100 mg tablet 100 mg PO QAM magnesium hydroxide [Her Milk of Magnesia] 400 mg/5 mL suspension 30 ml PO Q72H PRN Rx Instructions: if no BM in 72 hrs acetaminophen 325 mg tablet 325 mg PO Q4H PRN oxycodone 5 mg tablet 5 mg PO DIRECTED Rx Instructions: STARTING ON 10/22/24 - 3X/DAY FOR 2 DAYS, 2X/DAY FOR 1 DAY, 1X/DAY FOR 1 DAY THEN STOP ibuprofen 200 mg tablet 600 mg PO QID buspirone 15 mg tablet 15 mg PO BID escitalopram oxalate [Lexapro] 20 mg tablet 20 mg PO DAILY levothyroxine 25 mcg capsule 25 mcg PO DAILY quetiapine [Seroquel] 300 mg tablet 300 mg PO QHS Discharge Orders: Discharge Order (Routine); Ordered 10/29/24 Ordered By: Kera Sandoval Patient Education: Hospice Care (GEN) Additional Instructions: ADMIT TO HOSPICE Activity Level: Activity as Tolerated Discharge Diet: Regular Diet Detail: as tolerated for comfort Follow Up Appointments: Dat Smith MD [Primary Care Provider] - (as needed) Forms: MyHealth Info Instructions Discharge Comments: ADMIT TO HOSPICE
--- NOTE | 2024-10-29 10:07 | PC.SOCIAL ---
Addendum entered by LEANN Edwards 10/29/24 10:19: Discharge planning: textile worker received a call back from Caprice with [facility] who stated that she was going to check with their clinical team on availability for hospice admission today. Social work to follow-up as needed. Original Note: Discharge planning: textile worker spoke to JASON Love at [facility] in [place], where the pt lives. She stated that their facility has used [facility] before in the past with other residents and had a very good experience with them and think that they would be a good fit for the pt. textile worker then talked to pt's guardian, Danica Starr, who shared that she was fine with the pt being referred to [facility]. textile worker called [facility] at #[phone], and left a message with Caprice, who covers [facility]. textile worker also faxed the referral to [facility] at fax #[phone]. Social work to follow-up as needed.
--- NOTE | 2024-10-29 10:32 | PC.SOCIAL ---
Addendum entered by LEANN Edwards 10/29/24 16:24: Discharge planning: film processing utility worker spoke to Caprice with [facility] #[phone] and she shared that they could have the hospital bed and tray delivered today to the pt's senior care, but they could not complete all the admission/intake paperwork until tomorrow morning. film processing utility worker spoke with the provider on duty and she shared that it was fine for the pt to discharge today with comfort medications that the hospital will send to the pt's pharmacy and for hospice to complete their final intake tomorrow morning. film processing utility worker spoke to Caprice from [facility] who said they could come to pt's home at 9:00am tomorrow. Caprice shared that her Clinical Director, Miguelina, spoke to the pt's guardian who will be signing paperwork with them later today electronically. film processing utility worker updated Kate at [facility] where pt lives and faxed her the pt's discharge summary and orders. Pt will be sent home with prescription comfort medications until hospice can take over tomorrow morning. The comfort medication prescriptions were sent to [facility] here in [facility] who will deliver the medications to the pt's home. Pt was given a does of Ativan before she discharged from the hospital to provide comfort/pain relief to her until the rest of her medications are delivered later on today. Pt's discharge orders and discharge summary were also faxed to [facility] this afternoon. Social work to follow-up as needed. Original Note: Discharge planning: film processing utility worker talked to JASON Love at [facility](senior care where pt lives) #[phone] and she stated that their facility has used [facility] before in the past for other residents and they had a very good experience with them. Kate stated that she thinks [facility] would be a good fit for the pt. film processing utility worker then talked to Danica Starr #[phone], pt's guardian, and she shared that she was fine with a referral being sent to [facility] on behalf of the pt. film processing utility worker then called [facility] #[phone] and spoke to Caprice who covers [facility] clients. Caprice stated that she was going to review pt's referral and check with the clinical team on availability for hospice admission today. film processing utility worker faxed pt's referral to [facility] at fax number #[phone]. film processing utility worker also checked again with Kate at [facility] on what DME pt will need when she returns back to her senior care with hospice and Kate shared that the pt will need a hospital bed and a tray for next to the bed. film processing utility worker left a message for Caprice with [facility] letting her know this update. film processing utility worker will wait to hear back from Caprice on their intake availability for today. Social work to follow-up as needed.
--- NOTE | 2024-10-29 14:34 | PC.NURSE ---
Staff from [facility] here today to assist with cares and involved with discharge. Social work working close with Hospice service to facilitate discharge. Discharge instructions faxed to staff at [facility] and instructions given to staff present. All questions answered. Pt able to transfer to wheelchair with [place] lift. Ativan and morphine given PRN for pain/restlessness.
== END 2024-10-29 13:58 | disposition home or self-care (01) | DRG 871 ==
LOC: ED 16:18 → MEDSURG 16:51
PROVIDERS: Family Medicine; Physician Assistant; Admitting Provider Internal Medicine; Emergency Provider Family Medicine; PCP Family Medicine; Visit Provider Internal Medicine
DX: A41.9 Sepsis, unspecified organism (principal); J18.9 Pneumonia, unspecified organism; J69.0 Pneumonitis due to inhalation of food and vomit; J96.01 Acute respiratory failure with hypoxia; N17.9 Acute kidney failure, unspecified; E87.0 Hyperosmolality and hypernatremia; E70.1 Other hyperphenylalaninemias; E23.2 Diabetes insipidus; F79 Unspecified intellectual disabilities; R33.0 Drug induced retention of urine; T40.2X5A Adverse effect of other opioids, initial encounter; R74.01 Elevation of levels of liver transaminase levels; E86.0 Dehydration; S90.32XA Contusion of left foot, initial encounter; M79.672 Pain in left foot; E87.6 Hypokalemia; K59.09 Other constipation; F63.81 Intermittent explosive disorder; F41.9 Anxiety disorder, unspecified; N32.89 Other specified disorders of bladder; Z66 Do not resuscitate; E03.9 Hypothyroidism, unspecified; N83.201 Unspecified ovarian cyst, right side
CPT/HCPCS: 36415; 51701; 71260; 71275; 74177; 80048; 80053; 80076; 81001; 82803; 82947; 82962; 83605; 83735; 83880; 84100; 84145; 84295; 84484; 85025; 85610; 85730; 86140; 87081; 87086; 87631; 92610; 93005; 94761; 97161; 97530; 99284; 99285; A9270; J0456; J0696; J1650; J1940; J2060; J2270; J2543; J3372; J3480; J7030; J7050; J7070; J7120; Q9967